=== PATIENT | male | born 1960 | race Caucasian/White ===

== ENCOUNTER 2024-05-21 15:49 | Emergency (ER) | payer OTHER, MEDICARE, SELFPAY ==
[2024-05-21 15:51] VITALS: BP 139/96
[2024-05-21] MEDS: VIBRAMYCIN 100 MG PO (17:54)
--- NOTE | 2024-05-21 23:18 | ED.SKININJ ---
HPI-Injury
General
Chief Complaint: Skin Problem
Source: patient
Exam Limitations: none
Time Seen by Provider: 05/21/24 17:16
Nursing documentation reviewed up to this point in time: agreed with
History of Present Illness-Injury
Is this injury a work related problem?: No
Is pt an associate of [facility] [address]?: No
Initial Injury comments:
Patient with red rash to left shoulder. Symptoms started this week. Today noted new rash to right thigh. Denies fever/chills, n/v/d. No pain or swelling to either site. No prior history of same. Brought self to ED for eval.
Past History
Past History
ED Past Medical History: GERD, Psychiatric (Anxiety) and Other (Spontaneous pneumothorax)
ED Past Surgical History: Orthopedic
Social History
Tobacco: Smoker
Alcohol: None
Drug: None
Personal: Single
Living: alone
Employment: Employed
Family History
Family History: Other (Father with melanoma)
Review of Systems
Review of Systems
Allergies reviewed?: Yes
All Other Systems: ROS reviewed and negative except as documented in HPI and ROS
Constitutional: Reports no symptoms
EENT: Reports no symptoms
Respiratory: Reports no symptoms
Cardiac: Reports no symptoms
ABD/GI: Reports no symptoms
Musculoskeletal: Reports no symptoms
Skin: Reports rash (Bulls eye rash to left shoulder and right thigh.)
Neurological: Reports no symptoms
Psychiatric: Reports no symptoms
Phy Exam
General Physical Exam
General Presentation: well appearing and no apparent distress
General age: appears stated age
General Skin: warm and dry
General Habitus: normal
General Mental: alert
Neurological Exam
Neurological Exam: alert, oriented x3, CN II-XII intact, no motor deficits, no sensory deficits, speech normal and normal gait
Musculoskeletal Exam
Musculoskeletal Exam: full ROM and neuro vasc intact
Skin Exam
Skin Exam: normal color, warm/dry and other (Bulls eye rash to left shoulder and right thigh concerning for Lymes erythema migrans presentation)
Psychiatric Exam
Psychiatric Exam: normal mood/affect
Course
Orders/Labs/Results
Orders:
Orders
05/21/24 17:28
Doxycycline [Vibramycin] 100 mg PO NOW STA
05/21/24 17:58
Lyme Progressive Urgent
Vital Signs
Initial and Last Documented VS:
Initial Vital Signs
Temp Pulse Resp BP Pulse Ox
97.5 F 96 16 139/96 97
05/21/24 15:51 05/21/24 15:51 05/21/24 15:51 05/21/24 15:51 05/21/24 15:51
Last Documented Vital Signs
Temp Pulse Resp BP Pulse Ox
97.5 F 96 16 139/96 97
05/21/24 15:51 05/21/24 15:51 05/21/24 15:51 05/21/24 15:51 05/21/24 15:51
*Critical Care Note
Total Time (30-74mins, 75-104mins- exclusive of procedures): Not Applicable
Update Note
Update Note:
Bulls eye rash to left shoulder and right thigh. Suspect Erythema Migrans. Lyme titer drawn, results pending. Placed on Doxycycline 100mg bid, He is discharged home and will follow closely with PCP
ED Attending Note
-
Portions of this chart may have been created with voice recognition software.� Occasional wrong word or��sound alike� substitutions may have occurred due to the inherent limitations of voice recognition software.
Discharge Plan
Departure
Patient Disposition: Home (Routine Discharge)
Date of Disposition: 05/21/24
Time of Disposition: 17:29
Patient with high blood pressure during this ER visit?: No
Condition: Good
Covid-19: Not Applicable
Discharge Problem:
Erythema migrans (Lyme disease)
Instructions: Skin Rash (DC)
Prescriptions:
New
doxycycline hyclate 100 mg capsule
100 mg PO BID Qty: 42 0RF
No Action
aspirin 325 MG tablet,delayed release (DR/EC)
325 mg PO DAILYPRN PRN (Reason: mild pain)
alprazolam 1 MG tablet
1 mg PO TID
ondansetron 4 mg Tablet,Disintegrating
4 mg PO TIDPRN PRN (Reason: nausea/vomiting) Qty: 10 0RF
famotidine [Pepcid] 40 mg tablet
40 mg PO DAILY Qty: 20 0RF
Activity Restrictions/Additional Instructions:
Follow up with your family doctor
Interventions
Interventions:
*General Assessment Last Done: 05/21/24 15:51
ED- Fall Risk Assessment Last Done: 05/21/24 18:40
*ED COVID-19 Vaccine History Last Done: 05/21/24 15:51
*Nursing Disposition Last Done: 05/21/24 18:40
Discharge Date and Time
Discharge Date/Time: 05/21/24 18:40
Print Language: INDIAN
[2024-05-23 15:09] LABS: Lyme Antibody Screen, EIA Negative (Negative)
== END 2024-05-21 18:40 | disposition home or self-care (01) ==
LOC: EMR 15:49
PROVIDERS: Nurse Practitioner; EMERGENCY PHYSICIAN Emergency Medicine; FAMILY PHYSICIAN Physician Assistant Medical
DX: A26.0 Cutaneous erysipeloid (principal); A69.20 Lyme disease, unspecified; F41.9 Anxiety disorder, unspecified; K21.9 Gastro-esophageal reflux disease without esophagitis; K22.70 Barrett's esophagus without dysplasia; F43.10 Post-traumatic stress disorder, unspecified; F17.210 Nicotine dependence, cigarettes, uncomplicated; Z87.01 Personal history of pneumonia (recurrent); Z88.8 Allergy status to other drugs, medicaments and biological substances
CPT/HCPCS: 99283; 86618

== ENCOUNTER → 2025-01-24 16:17 | Outpatient (REF) | payer OTHER, MEDICARE, SELFPAY ==
[2025-01-24 17:38] LABS: Blood Urea Nitrogen 12 mg/dl (9-20); Carbon Dioxide 24 mmol/L (22-30); Chloride 102 mmol/L (98-107); Glucose 86 mg/dl (70-99); Sodium 137 mmol/L (135-145); eGFR > 60.00
== END ==
LOC: REG 16:17
PROVIDERS: ATTENDING PHYSICIAN Nurse Practitioner Family
DX: R93.89 Abnormal findings on diagnostic imaging of other specified body structures (principal)
CPT/HCPCS: 36415; 80048

== ENCOUNTER → 2025-01-26 10:28 | Outpatient (REF) | payer MEDICARE, SELFPAY | LOC: HWRAD 10:28 | PROVIDERS: ATTENDING PHYSICIAN Internal Medicine Critical Care Medicine; FAMILY PHYSICIAN Family Medicine | DX: R91.8 Other nonspecific abnormal finding of lung field (principal) | CPT/HCPCS: 71250 ==

== ENCOUNTER → 2025-01-27 08:02 | Outpatient (REF) | payer MEDICARE, SELFPAY ==
[2025-01-27 09:22] LABS: Hemoglobin 12.6 g/dL (13.0-18.0); Mean Corp Hgb Conc. 34.1 g/dL (33.0-37.0); Mean Corpuscular Hgb 27.7 pg (27.0-31.0); Mean Corpuscular Volume 81.3 fL (80.0-94.0); Mean Platelet Volume 8.9 fL (7.4-10.4); Platelet Count 410 10^3/uL (130-400); Red Blood Cell Count 4.55 10^6/uL (4.70-6.10); Red Cell Dist. Width 14.2 % (11.5-14.5)
[2025-01-27 09:30] LABS: INR 0.98; PT 13.3 Sec (11.4-14.6)
[2025-01-27 09:31] LABS: APTT 37.5 Sec (23.4-35.0)
== END ==
LOC: SDSPAT 08:02
PROVIDERS: ATTENDING PHYSICIAN Internal Medicine Critical Care Medicine; FAMILY PHYSICIAN Family Medicine
DX: R10.9 Unspecified abdominal pain (principal)
CPT/HCPCS: 85027; 85610; 85730; 93005

== ENCOUNTER 2025-01-30 06:22 | Day surgery (SDC) | payer MEDICARE, SELFPAY ==
[2025-01-27 11:44] VITALS: BMI 24.0
[2025-01-30] VITALS (9 sets, daily range): BP systolic 104–145; BP diastolic 67–100; BMI 24.0
--- NOTE | 2025-01-30 16:07 | W.PN.UPDATE ---
Update Note
Progress Note Update
Following robotic bronchoscopy today, which showed a friable mass at the orifice of the right upper lobe anterior segmental bronchus, patient had some mild hemoptysis after he was extubated. He was in no acute distress. As a precaution, I will
give him nebulized TXA 500mg x 1 and continue to closely monitor while in the PACU.
If hemoptysis remains minimal, and saturations remain >88-90%, and he is not short of breath or have chest discomfort (worse than baseline that is), then he is okay to be discharged home. Of note, he was coughing up blood prior to today.
== END 2025-01-30 17:24 | disposition home or self-care (01) ==
LOC: SDS 06:22
PROVIDERS: ATTENDING PHYSICIAN Internal Medicine Critical Care Medicine
DX: C34.11 Malignant neoplasm of upper lobe, right bronchus or lung (principal); R93.89 Abnormal findings on diagnostic imaging of other specified body structures; R91.1 Solitary pulmonary nodule; R91.8 Other nonspecific abnormal finding of lung field
CPT/HCPCS: 31652; 31629; 31624; 31623; 31654; 88172; 88173; 88305; 71045; 76000; 81459; 87015; 87070; 87071; 87102; 87116; 87186; 87205; 88112; 88333; 88341; 88342; 94640; C1887

== ENCOUNTER → 2025-02-08 11:44 | Outpatient (REF) | payer MEDICARE, OTHER, SELFPAY ==
[2025-02-08 14:08] LABS: % Basophils 1.5 % (0-2); % Immature Granulocytes 0.5 % (0-0.5); % Monocytes 10.4 % (1.7-9.3); % Neutrophils 56.6 % (42.2-75.2); Absolute Basophils 0.1 10^3/uL (0-0.2); Absolute Eosinophils 0.1 10^3/uL (0-0.7); Absolute Lymphocytes 1.7 10^3/uL (1.2-3.4); Absolute Monocytes 0.6 10^3/uL (0.1-0.6); Absolute Neutrophils 3.3 10^3/uL (1.4-6.5); Hematocrit 35.3 % (39.0-52.0); Hemoglobin 11.7 g/dL (13.0-18.0); Mean Corp Hgb Conc. 33.1 g/dL (33.0-37.0); Mean Corpuscular Hgb 27.1 pg (27.0-31.0); Mean Corpuscular Volume 81.7 fL (80.0-94.0); Nucleated Red Blood Cells % 0 % (-); Platelet Count 404 10^3/uL (130-400); Red Blood Cell Count 4.32 10^6/uL (4.70-6.10); Red Cell Dist. Width 14.1 % (11.5-14.5); White Blood Cell Count 5.9 10^3/uL (4.8-10.8)
[2025-02-08 15:06] LABS: ALT (SGPT) 10 U/L (0-50); AST (SGOT) 16 U/L (17-59); Albumin 4.3 g/dl (3.5-5.0); Alkaline Phosphatase 100 U/L (38-126); Blood Urea Nitrogen 14 mg/dl (9-20); Calcium 9.9 mg/dl (8.4-10.2); Carbon Dioxide 21 mmol/L (22-30); Chloride 101 mmol/L (98-107); Glucose 88 mg/dl (70-99); Potassium 4.5 mmol/L (3.5-5.1); Sodium 135 mmol/L (135-145); Total Bilirubin 0.7 mg/dl (0.2-1.3); eGFR > 60.00
[2025-02-08 16:18] LABS: CEA 4.04 ng/ml
== END ==
LOC: MRI 3T 11:44
PROVIDERS: ATTENDING PHYSICIAN Internal Medicine Hematology & Oncology; FAMILY PHYSICIAN Nurse Practitioner Family
DX: C34.11 Malignant neoplasm of upper lobe, right bronchus or lung (principal)
CPT/HCPCS: 36415; 70553; 80053; 82378; 85025; A9575

== ENCOUNTER → 2025-03-03 10:55 | Outpatient (REF) | payer MEDICARE, OTHER, SELFPAY | LOC: HWRAD 10:55 | PROVIDERS: ATTENDING PHYSICIAN Nurse Practitioner Family | DX: R60.0 Localized edema (principal) | CPT/HCPCS: 93970 ==

== ENCOUNTER 2025-04-03 06:57 | Emergency (ER) | payer MEDICARE, OTHER, SELFPAY ==
[2025-04-03 07:04] VITALS: BP 100/76
[2025-04-03 07:13] VITALS: BP 106/76
[2025-04-03 07:16] VITALS: BMI 23.1
--- NOTE | 2025-04-03 07:25 | ED.GENMED ---
History of Present Illness
General
Chief Complaint: Generalized Pain
Source: patient
Exam Limitations: none
Time Seen by Provider: 04/03/25 07:01
History of Present Illness
History of Present Illness:
64-year-old male smoker with history of COPD and diagnosis of lung cancer presents with diffuse pain. He has been taking meloxicam with minimal relief. He is on famotidine as well for this. He has been in contact with oncology. He was starting a
discussion with palliative care but he has yet to seek palliative care. He initially had a wedge resection scheduled for April 19 of this month but it got canceled. He denies a fever. He notes joint aches and muscle pain. Patient expresses his
frustration with this process. He could not drive this morning because of his pain he called the ambulance. He does have an appointment for 11 AM today with the nurse coordinator and his oncology office.
Past History
Past History
ED Past Medical History: GERD, Psychiatric (Anxiety) and Other (Spontaneous pneumothorax)
ED Past Surgical History: Orthopedic
Social History
Tobacco: Smoker
Alcohol: None
Drug: None
Personal: Single
Living: alone
Employment: Employed
Family History
Family History: Other (Father with melanoma)
Phy Exam
Physical Exam
Physical Exam:
General: Well-appearing male no acute respiratory distress
HEENT: Normocephalic atraumatic
Heart: Regular rate and rhythm no murmurs
Lungs: Clear no wheeze
Abdomen is soft nontender nondistended
Extremities: No cyanosis or edema
Course
Orders/Labs/Results
Orders:
Orders
04/03/25 07:23
HYDROmorphone [Dilaudid] 0.5 mg IV NOW STA
04/03/25 07:33
CPK [Creatine Phosphokinase] Urgent
Complete Blood Count/With Diff Urgent
Comprehensive Metabolic Panel Urgent
04/03/25 09:48
Ondansetron Injectable [Zofran] 4 mg IV NOW STA
04/03/25 09:49
Ondansetron Injectable [Zofran] 4 mg .ROUTE .STK-MED ONE
04/03/25 10:12
Oxycodone [Roxicodone] 5 mg PO NOW STA
Abnormal Lab Results
04/03/25
07:33
RBC 3.70 L 10^6/uL
(4.70-6.10)
Hgb 9.2 L g/dL
(13.0-18.0)
Hct 28.0 L %
(39.0-52.0)
MCV 75.7 L fL
(80.0-94.0)
MCH 24.9 L pg
(27.0-31.0)
MCHC 32.9 L g/dL
(33.0-37.0)
Plt Count 453 H 10^3/uL
(130-400)
Monocytes % 10.3 H %
(1.7-9.3)
Glucose 101 H mg/dl
(70-99)
AST 13 L U/L
(17-59)
Creatine Kinase 35 L U/L
(55-170)
Total Protein 5.9 L g/dl
(6.3-8.2)
Albumin 3.2 L g/dl
(3.5-5.0)
04/03/25 07:33
04/03/25 07:33
Vital Signs
Initial and Last Documented VS:
Initial Vital Signs
Pulse Resp
92 21
04/03/25 07:01 04/03/25 07:01
Last Documented Vital Signs
Temp Pulse Resp BP Pulse Ox
97.8 F 89 18 106/76 99
04/03/25 07:13 04/03/25 07:13 04/03/25 07:13 04/03/25 07:13 04/03/25 07:13
MDM/Problems Addressed
Differential Diagnosis Includes:
patient with diffuse pain history of lung cancer. Meloxicam helping minimally. Will check basic labs and CPK given the diffuse pain. Give dose of Dilaudid.
*Critical Care Note
Total Time (30-74mins, 75-104mins- exclusive of procedures): Not Applicable
Update Note
Update Note:
Patient reevaluated multiple times feeling somewhat better after IV pain medicine. No indication for admission. will discharge.
ED Attending Note
-
Portions of this chart may have been created with voice recognition software.� Occasional wrong word or��sound alike� substitutions may have occurred due to the inherent limitations of voice recognition software.
Discharge Plan
Departure
Patient Disposition: Home (Routine Discharge)
Date of Disposition: 04/03/25
Time of Disposition: 10:47
Patient with high blood pressure during this ER visit?: No
Discharge Problem:
Pain
Instructions: Chronic Pain (DC)
Prescriptions:
New
oxycodone-acetaminophen [Percocet] 5-325 mg tablet
1 tab PO TID PRN (Reason: Pain) Qty: 10 0RF
No Action
aspirin 325 MG tablet,delayed release (DR/EC)
325 mg PO DAILYPRN PRN (Reason: mild pain)
alprazolam 1 MG tablet
1 mg PO TID
esomeprazole magnesium [Nexium] 20 mg Capsule,Delayed Release(Dr/Ec)
20 mg PO DAILY
Rx Instructions:
Takes 1-2 tabs daily
ibuprofen 200 mg Tablet
200 mg PO Q6H PRN (Reason: pain)
Referrals:
Zulma Armas CRNP [Family Provider] -
Activity Restrictions/Additional Instructions:
Please follow-up with your oncology team as planned.
Interventions
Interventions:
*Risk Screen - Suicide Last Done: 04/03/25 08:05
*General Assessment Last Done: 04/03/25 08:04
*ED- Fall Risk Assessment Last Done: 04/03/25 08:04
*ED COVID-19 Vaccine History Last Done: 04/03/25 08:04
Discharge Date and Time
Print Language: BAHRAINI
[2025-04-03] MEDS: DILAUDID 0.5 MG IV (07:30)
[2025-04-03 07:45] LABS: % Basophils 1.4 % (0-2); % Eosinophils 3.6 % (0-6); % Immature Granulocytes 0.2 % (0-0.5); % Monocytes 10.3 % (1.7-9.3); % Neutrophils 62.5 % (42.2-75.2); Absolute Basophils 0.1 10^3/uL (0-0.2); Absolute Eosinophils 0.2 10^3/uL (0-0.7); Absolute Lymphocytes 1.3 10^3/uL (1.2-3.4); Absolute Monocytes 0.6 10^3/uL (0.1-0.6); Absolute Neutrophils 3.7 10^3/uL (1.4-6.5); Hemoglobin 9.2 g/dL (13.0-18.0); Mean Corp Hgb Conc. 32.9 g/dL (33.0-37.0); Mean Corpuscular Hgb 24.9 pg (27.0-31.0); Mean Corpuscular Volume 75.7 fL (80.0-94.0); Mean Platelet Volume 8.9 fL (7.4-10.4); Nucleated Red Blood Cells % 0 % (-); Platelet Count 453 10^3/uL (130-400); Red Cell Dist. Width 14.1 % (11.5-14.5); White Blood Cell Count 5.9 10^3/uL (4.8-10.8)
[2025-04-03 07:55] LABS: ALT (SGPT) < 10 U/L (0-50); AST (SGOT) 13 U/L (17-59); Albumin 3.2 g/dl (3.5-5.0); Alkaline Phosphatase 76 U/L (38-126); Blood Urea Nitrogen 10 mg/dl (9-20); Calcium 9.1 mg/dl (8.4-10.2); Carbon Dioxide 24 mmol/L (22-30); Chloride 105 mmol/L (98-107); Creatine Phosphokinase 35 U/L (55-170); Estimated Creatinine Clearance 66 ml/min; Glucose 101 mg/dl (70-99); Potassium 4.4 mmol/L (3.5-5.1); Sodium 136 mmol/L (135-145); Total Bilirubin 0.4 mg/dl (0.2-1.3); Total Protein 5.9 g/dl (6.3-8.2); eGFR > 60.00
[2025-04-03 08:00] VITALS: BP 111/76
[2025-04-03 09:00] VITALS: BP 111/85
--- NOTE | 2025-04-03 09:19 | CM ---
ED CM met with pt bedside
Pt with new CA diagnosis
Palliative care brochure provided
He noted he has already met with them
Pt resides alone and will need help with navigating care and process
Pt has a blnded CM at [facility] and enrolled with [address]
He noted he has not heard from his [facility] CM regarding home based services
Outreach to [facility] [place]
Pt already followed closely by Javier Burk/[facility] to assist with care and navigation
No other CM needs at this time
[2025-04-03] MEDS: ZOFRAN 4 MG IV (09:50)
[2025-04-03 10:19] VITALS: BP 105/78
[2025-04-03] MEDS: ROXICODONE 5 MG PO (10:48)
[2025-04-03 11:00] VITALS: BP 121/80
== END 2025-04-03 11:05 | disposition home or self-care (01) ==
LOC: EMR 06:57
PROVIDERS: Physician Assistant; EMERGENCY PHYSICIAN Student in an Organized Health Care Education/Training Program; FAMILY PHYSICIAN Nurse Practitioner Family
DX: M79.10 Myalgia, unspecified site (principal); R52 Pain, unspecified; F17.200 Nicotine dependence, unspecified, uncomplicated; J44.9 Chronic obstructive pulmonary disease, unspecified
CPT/HCPCS: 99285; 96374; 96375; 80053; 82550; 85025

== ENCOUNTER → 2025-04-14 07:17 | Outpatient (REF) | payer MEDICARE, OTHER, SELFPAY ==
[2025-04-14 08:02] VITALS: BP 99/69; BP_SYST 80
[2025-04-14 08:13] VITALS: BMI 26.6
[2025-04-14] MEDS: ANCEF 10 IV (08:19)
[2025-04-14 09:16] VITALS: BP 114/80; BP_SYST 83
[2025-04-14 09:20] VITALS: BP 114/74; BP_SYST 90
[2025-04-14 09:25] VITALS: BP 108/76
[2025-04-14 09:30] VITALS: BP 130/67
[2025-04-14 09:46] VITALS: BP 107/77
== END ==
LOC: RADI 07:17
PROVIDERS: ATTENDING PHYSICIAN Internal Medicine Hematology & Oncology
DX: C34.11 Malignant neoplasm of upper lobe, right bronchus or lung (principal)
CPT/HCPCS: 36561; 76937; 77001; 99152; 99153; C1788

== ENCOUNTER → 2025-04-15 11:00 | Outpatient (REF) | payer MEDICARE, OTHER, SELFPAY ==
[2025-04-15 11:47] LABS: % Basophils 1.2 % (0-2); % Immature Granulocytes 0.2 % (0-0.5); % Lymphocytes 25.2 % (20.5-51.1); % Monocytes 10.5 % (1.7-9.3); % Neutrophils 60.9 % (42.2-75.2); Absolute Basophils 0.1 10^3/uL (0-0.2); Absolute Eosinophils 0.1 10^3/uL (0-0.7); Absolute Lymphocytes 1.3 10^3/uL (1.2-3.4); Absolute Monocytes 0.5 10^3/uL (0.1-0.6); Hematocrit 28.5 % (39.0-52.0); Hemoglobin 9.2 g/dL (13.0-18.0); Mean Corp Hgb Conc. 32.3 g/dL (33.0-37.0); Mean Corpuscular Hgb 24.2 pg (27.0-31.0); Mean Platelet Volume 8.5 fL (7.4-10.4); Nucleated Red Blood Cells % 0 % (-); Platelet Count 480 10^3/uL (130-400); Red Cell Dist. Width 14.7 % (11.5-14.5)
[2025-04-15 12:42] LABS: ALT (SGPT) < 10 U/L (0-50); AST (SGOT) 16 U/L (17-59); Albumin 3.6 g/dl (3.5-5.0); Alkaline Phosphatase 83 U/L (38-126); Blood Urea Nitrogen 16 mg/dl (9-20); Calcium 9.1 mg/dl (8.4-10.2); Carbon Dioxide 23 mmol/L (22-30); Chloride 105 mmol/L (98-107); Glucose 90 mg/dl (70-99); Potassium 5.2 mmol/L (3.5-5.1); Sodium 135 mmol/L (135-145); Total Bilirubin 0.2 mg/dl (0.2-1.3); Total Protein 6.4 g/dl (6.3-8.2); eGFR > 60.00
[2025-04-15 12:53] LABS: Free T4 1.15 ng/dl (0.78-2.19)
[2025-04-15 13:07] LABS: TSH 4.83 uIU/ml (0.47-4.68)
[2025-04-17 15:36] LABS: Total T3 (Sendout) 124 ng/dL (80-200)
== END ==
LOC: REG 11:00
PROVIDERS: ATTENDING PHYSICIAN Internal Medicine Hematology & Oncology
DX: C34.11 Malignant neoplasm of upper lobe, right bronchus or lung (principal); Z79.899 Other long term (current) drug therapy
CPT/HCPCS: 36415; 80053; 84439; 84443; 84480; 85025

== ENCOUNTER 2025-04-21 23:00 | Inpatient (IN) | payer MEDICARE, OTHER, SELFPAY ==
[2025-04-21 17:17] VITALS: BP 137/72
--- NOTE | 2025-04-21 17:37 | EDRN ---
Cierra Shirley PA in room w/pt at this time.
--- NOTE | 2025-04-21 17:49 | ED.GENMED ---
History of Present Illness
General
Chief Complaint: Bowel Problem
Source: patient, records and family
Time Seen by Provider: 04/21/25 17:29
History of Present Illness
History of Present Illness:
64-year-old male with past medical history of lung cancer, COPD, previous pneumothorax presenting to the emergency department for evaluation of gradually worsening abdominal pain throughout the day today accompanied with passage of 2 hard stools,
nausea and generally feeling unwell. Patient states he has felt so unwell he was unable to take any of his medications at home including his usual pain medicines of Percocet and meloxicam. Patient denies any fevers, chills, rigors, urinary
symptoms, chest pain or shortness of breath. He does note he was recently seen on Thursday at his [facility] where he had his last round of chemotherapy. Based off of record review it appears patient was in talks about palliative
care however still has not had his appointment for this.
Past History
Past History
ED Past Medical History: Cancer, GERD, Psychiatric (Anxiety) and Other (Spontaneous pneumothorax)
ED Past Surgical History: Orthopedic
Social History
Tobacco: Smoker
Alcohol: None
Drug: None
Personal: Single
Living: alone
Employment: Employed
Family History
Family History: Other (Father with melanoma)
Review of Systems
Review of Systems
All Other Systems: ROS reviewed and negative except as documented in HPI and ROS
Phy Exam
Physical Exam
Physical Exam:
GENERAL: Alert , appears very uncomfortable, moaning, hard time sitting still
EYE: clear conjunctiva b/l
HEAD: NCAT
ENT: mmm.
CARDIAC: Regular rate and rhythm .
LUNGS: Clear breath sounds bilaterally, no acute respiratory distress, no wheezes/rales/rhonchi
ABDOMEN: Soft, diffusely tender but nondistended, no r/g, no cvat, normoactive bowel sounds
NEUROLOGICAL: Alert and oriented
SKIN: Warm and dry, skin intact.
MUSCULOSKELETAL: well perfused.
PSYCH: Normal and appropriate interaction.
Scores
Heart Failure Risk
Heart Failure Risk Score: Not Applicable
Heart Score for Chest Pain Patients
STEMI patient?: Not applicable
Withdrawal Assessment of Alcohol
Withdrawal Assessment Completed?: Not applicable
Course
Orders/Labs/Results
Orders:
Orders
04/21/25 17:45
0.9% Sodium Chloride 1000 ml [Nss] 1,000 ml IV BOLUS
HYDROmorphone [Dilaudid] 1 mg IV NOW STA
Ondansetron Injectable [Zofran] 4 mg IV NOW STA
CR Obstruct Series W/pa Chest Urgent
Comment:
Reason For Exam: cancer hx, worsening abd pain
04/21/25 18:13
Complete Blood Count/With Diff Urgent
Comprehensive Metabolic Panel Urgent
Lipase Urgent
04/21/25 18:49
CT Abd/pelvis W Iv Cont Urgent
Comment:
Reason For Exam: generalized abd pain, vomiting, lung ca hx
04/21/25 19:16
Lactic Acid Q4H
Comment: CANCEL 2nd LACTIC ACID IF 1st LACTIC ACID IS LESS THAN 2
Blood Culture Q30M
YUNG Source: Blood/Venous
Specimen Description:
04/21/25 19:23
Blood Culture Q30M
YUNG Source: Blood/Venous
Specimen Description:
04/21/25 19:41
Ondansetron Injectable [Zofran] 4 mg .ROUTE .STK-MED ONE
04/21/25 19:42
HYDROmorphone [Dilaudid] 0.5 mg .ROUTE .STK-MED ONE
Ondansetron Injectable [Zofran] 4 mg IV NOW STA
04/21/25 19:43
HYDROmorphone [Dilaudid] 0.5 mg IV NOW STA
04/21/25 22:00
Flush (0.9% Sodium Chloride) [Flush (Nss)] See Dose Instructions IV PER PROTOCOL
04/21/25 22:45
Promethazine [Phenergan] 12.5 mg 0.9% Sodium Chloride 50 ml [Nss] 50 ml IV NOW
Promethazine [Phenergan] 12.5 mg 0.9% Sodium Chloride 50 ml [Nss] 50 ml IV Q4HPRN
Abnormal Lab Results
04/21/25
18:13
WBC 23.7 H 10^3/uL
(4.8-10.8)
RBC 4.03 L 10^6/uL
(4.70-6.10)
Hgb 9.8 L g/dL
(13.0-18.0)
Hct 30.1 L %
(39.0-52.0)
MCV 74.7 L fL
(80.0-94.0)
MCH 24.3 L pg
(27.0-31.0)
MCHC 32.6 L g/dL
(33.0-37.0)
RDW 15.1 H %
(11.5-14.5)
Plt Count 429 H 10^3/uL
(130-400)
Abs Immat Gran (auto) 1.4 H 10^3/uL
(0-0.05)
Absolute Neuts (auto) 20.8 H 10^3/uL
(1.4-6.5)
Absolute Monos (auto) 0.0 L 10^3/uL
(0.1-0.6)
Immature Gran % 5.7 H %
(0-0.5)
Neutrophils % 87.7 H %
(42.2-75.2)
Lymphocytes % 6.2 L %
(20.5-51.1)
Monocytes % 0.1 L %
(1.7-9.3)
Chloride 108 H mmol/L
(98-107)
BUN 25 H mg/dl
(9-20)
04/21/25 18:13
04/21/25 18:13
Vital Signs
Initial and Last Documented VS:
Initial Vital Signs
Temp Pulse Resp BP Pulse Ox
98.1 F 87 20 137/72 98
04/21/25 17:17 04/21/25 17:17 04/21/25 17:17 04/21/25 17:17 04/21/25 17:17
Last Documented Vital Signs
Temp Pulse Resp BP Pulse Ox
98.1 F 82 16 131/73 99
04/21/25 17:17 04/21/25 20:00 04/21/25 20:00 04/21/25 20:00 04/21/25 20:00
MDM/Problems Addressed
Differential Diagnosis Includes:
Bowel obstruction, pain secondary to known malignancy/cancerous process, dehydration, electrolyte derangement, surgical abdomen
MDM/Problems Addressed:
64-year-old male presenting to the ER for evaluation of gradually worsening abdominal pain throughout the day today, history of similar pain, usually able to manage symptoms with Percocet at home as well as meloxicam but he was unable to even
tolerate this today. Will obtain x-ray to rule out obstruction. Pain control with Dilaudid as patient notes he has had relief with this in the past. IV fluids and Zofran ordered as well. Will check labs. Disposition pending.
Chronic conditions affecting care: Cancer
Acute Exacerbation and/or Progression of Chronic Illness: Cancer
*Radiology
Radiology exam reviewed: radiology read reviewed
*Pulse Oximetry
Patient hypoxic: no
*Critical Care Note
Total Time (30-74mins, 75-104mins- exclusive of procedures): Not Applicable
Data Reviewed
Review of Other/Old Records Reveals: Labs and Records
Comment
Comment:
Patient with initial improvement of symptoms however he did start vomiting again so an additional 4 mg of Zofran and 1/2 mg of Dilaudid ordered for symptomatic control. Patient has an elevated white blood cell count of near 24,000 which is
significantly elevated from the last time he was here. X-ray of the abdomen shows possible air-fluid levels within the right mid to lower abdomen. Given his leukocytosis and presenting symptoms will obtain CT scan to further evaluate. Anticipate
admission.
Patient Management
Discussion with other providers: Hospitalist
Escalation/DeEscalation of care consider admission/obs:
Patient CT scan without any focal findings or surgical complications. Given his persistent pain, difficulty tolerating p.o. and lab abnormalities will admit for continued supportive care and pain control. Hospitalist team aware and accepts for
continued evaluation and treatment.
ED Attending Note
-
Portions of this chart may have been created with voice recognition software.� Occasional wrong word or��sound alike� substitutions may have occurred due to the inherent limitations of voice recognition software.
Discharge Plan
Departure
Patient Disposition: Admit
Date of Disposition: 04/21/25
Time of Disposition: 21:28
Presentation/result/management discussed w/ accepting MD/DO: Hospitalist
Discharge Problem:
Abdominal pain, Nausea and vomiting
Prescriptions:
No Action
alprazolam 1 MG tablet
1 mg PO TID
ibuprofen 200 mg Tablet
200 mg PO Q6H PRN (Reason: pain)
oxycodone-acetaminophen [Percocet] 5-325 mg tablet
1 tab PO TID PRN (Reason: Pain) Qty: 10 0RF
famotidine 10 mg Tablet
10 mg PO DAILY
meloxicam 15 mg Tablet
15 mg PO DAILY
gabapentin 300 mg Capsule
300 mg PO DAILY
Referrals:
UNKNOWN - PT DOES,NOT KNOW [Unknown Provider] -
Interventions
Interventions:
*General Assessment Last Done: 04/21/25 18:19
*ED- Fall Risk Assessment Last Done: 04/21/25 18:19
*ED COVID-19 Vaccine History Last Done: 04/21/25 18:19
OZ-Xrpywz-Vjtjnryccd Assessment Last Done: 04/21/25 18:21
Discharge Date and Time
Print Language: KHMER
[2025-04-21] MEDS: ZOFRAN 4 MG IV ×2 (18:18→19:43)
[2025-04-21] MEDS: NSS 1000 IV (18:18)
[2025-04-21] MEDS: DILAUDID 1 MG IV (18:19)
[2025-04-21 18:30] VITALS: BP 121/71
[2025-04-21 18:32] LABS: ALT (SGPT) 16 U/L (0-50); AST (SGOT) 18 U/L (17-59); Albumin 3.6 g/dl (3.5-5.0); Alkaline Phosphatase 101 U/L (38-126); Blood Urea Nitrogen 25 mg/dl (9-20); Calcium 8.9 mg/dl (8.4-10.2); Carbon Dioxide 23 mmol/L (22-30); Chloride 108 mmol/L (98-107); Glucose 93 mg/dl (70-99); Sodium 137 mmol/L (135-145); Total Bilirubin 0.7 mg/dl (0.2-1.3); Total Protein 6.3 g/dl (6.3-8.2); eGFR > 60.00
[2025-04-21 18:34] LABS: Hematocrit 30.1 % (39.0-52.0); Hemoglobin 9.8 g/dL (13.0-18.0); Lipase 117 U/L (23-300); Mean Corp Hgb Conc. 32.6 g/dL (33.0-37.0); Mean Corpuscular Hgb 24.3 pg (27.0-31.0); Mean Corpuscular Volume 74.7 fL (80.0-94.0); Mean Platelet Volume 8.5 fL (7.4-10.4); Platelet Count 429 10^3/uL (130-400); Red Blood Cell Count 4.03 10^6/uL (4.70-6.10); Red Cell Dist. Width 15.1 % (11.5-14.5); White Blood Cell Count 23.7 10^3/uL (4.8-10.8)
[2025-04-21 18:49] VITALS: BMI 26.5
[2025-04-21 18:50] LABS: % Basophils 0.1 % (0-2); % Eosinophils 0.2 % (0-6); % Immature Granulocytes 5.7 % (0-0.5); % Lymphocytes 6.2 % (20.5-51.1); % Monocytes 0.1 % (1.7-9.3); % Neutrophils 87.7 % (42.2-75.2); Absolute Eosinophils 0.1 10^3/uL (0-0.7); Absolute Immature Granulocytes 1.4 10^3/uL (0-0.05); Absolute Lymphocytes 1.5 10^3/uL (1.2-3.4); Absolute Neutrophils 20.8 10^3/uL (1.4-6.5); Nucleated Red Blood Cells % 0 % (-)
[2025-04-21 19:34] LABS: Lactic Acid 1.5 mmol/L (0.7-2.0)
[2025-04-21] MEDS: DILAUDID 0.5 MG IV (19:43)
[2025-04-21 20:00] VITALS: BP 131/73
--- NOTE | 2025-04-21 21:59 | HPS.HSE ---
Family Physician
-
Family Physician: GONZALO Granados
Chief Complaint
-
Generalized abdominal pain nausea, dry heaves post first chemotherapy
History of Present Illness
64-year-old male complains of worsening abdominal pain throughout the day with nausea, 2 hard stools and feeling unwell. He reports feeling so unwell he was unable to take his pain medication Percocet and meloxicam that he was prescribed
approximately 2 to 3 weeks ago for bilateral leg pain/swelling. He denies fever, chills, headache, chest pain, palpitations, shortness of breath, vomiting, diarrhea, urinary symptoms. He has history of adenocarcinoma right upper lobe/midlung, left
lower lobe diagnosed February 21 via bronchoscopy. He started his first round of chemotherapy this past week on 04/17/2025 followed by 2 additional days of chemo and then colonizing factor injection yesterday 04/20/2025. He follows with
[facility] is unsure of physician's name. He states that he lives alone has no one to help him around the house or get things together including food. 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
tok tok tok program but has not heard anything. He is actively smoking 1 pack a day of cigarettes. He states his abdominal pain is generalized with nausea and dry heaves and all he wants to do is sleep and have nausea and pain control. Other past
medical history includes adenocarcinoma right upper lung/mid lung/left lower lobe Dx February 21, 2025 via bronchoscopy on first round of chemo started 04/17/2025 COPD, active smoker, previous spontaneous pneumothorax, GERD, anxiety.
Medical History
Past Medical History
Past Medical History: Reports Other
Additional Past Medical History:
adenocarcinoma right upper lung/mid lung/left lower lobe Dx February 21, 2025 via bronchoscopy on first round of chemo started 04/17/2025
COPD
active smoker
previous spontaneous pneumothorax
GERD
anxiety.
Past Surgical History: Reports None and Other
Social History
Tobacco: Smoker (1 pack a day x 50 years)
Alcohol: None
Drug: None
Personal: Single
Living: Alone
Employment: Disabled
Family History
Family History: Other (Father obstructive gallstone history of pacemaker, A-fib, CHF age 88, mother lung cancer unsure type)
Allergies / Home Medications
Allergies reflects when Allergies were last updated in [employer].
Home Medications with original date entered in [employer]
Allergy/Medication List:
Allergies
Allergy/AdvReac Type Severity Reaction Status Date / Time
diclofenac Allergy Nausea / Verified 04/21/25 17:16
Vomiting
antiinflammatories AdvReac Nausea / Uncoded 04/21/25 17:16
Vomiting
Home Medications
alprazolam 1 mg tablet 1 mg PO TID anxiety 06/24/21
ibuprofen 200 mg tablet 200 mg PO Q6H PRN pain 03/16/25
oxycodone-acetaminophen 5 mg-325 mg tablet (Percocet) 1 tab PO TID PRN Pain #10 tabs 04/03/25
famotidine 10 mg tablet 10 mg PO DAILY 04/14/25
gabapentin 300 mg capsule 300 mg PO DAILY 04/14/25
meloxicam 15 mg tablet 15 mg PO DAILY 04/14/25
Review of Systems
-
History Source: Patient
A 12 point ROS was completed and negative except as noted: Yes
Constitutional: Denies Fever or Chills
EENT: Denies Sore Throat or Runny Nose
Respiratory: Denies Cough or Trouble Breathing
Abdomen/GI: Reports Abdominal Pain (Generalized), Nausea, Vomiting (Dry heaves) and Constipated; Denies Diarrhea
: Denies Dysuria, Frequency, Flank Pain, Incontinence, Difficulty Voiding or Urgency
Musculoskeletal: Denies Joint Pain or Edema
Skin: Denies Itching or Rash
Neurological: Reports Weakness (Generalized); Denies Dizzy or Headache
Endocrine: Reports No Symptoms
Hematologic/Lymphatic: Reports No Symptoms
Psych: Reports Other (Agitated)
Physical Exam
Vital Signs
Vital Signs
Temp Pulse Resp BP Pulse Ox
98.1 F 82 16 131/73 99
04/21/25 17:17 04/21/25 20:00 04/21/25 20:00 04/21/25 20:00 04/21/25 20:00
Physical Exam
General: Conversant (But agitated) and Pain; No Fever or Chills
HEENT: NormoCephalic, Anicteric and Other (Dry oral mucosa); No Thrush
Respiratory: Clear; No Wheezes, Rales or Rhonchi
Cardiac: S1/S2 and Regular Rhythm; No Murmur, Rub, Gallop or Peripheral Edema
Breast: Deferred by me
GI: Soft, Normal Bowel Sounds and Tender (Generalized)
Genito-urinary: Deferred by me
Musculoskeletal: Clubbing (All fingernails), No Cyanosis and No Edema
Skin: Warm and Dry; No Rash or Jaundice
Neuro: AO x 3, No Motor Deficits, Nonfocal/grossly intact, Cranial Nerves Intact and No Sensory Deficits; No Slurred Speech, Facial Droop, Tremors or Sedated
Psych: Agitated
Laboratory Results
-
04/21/25 18:13
04/21/25 18:13
Laboratory Results
Lactic Acid Cancelled 04/21/25 23:00
Total Bilirubin 0.7 mg/dl (0.2-1.3) 04/21/25 18:13
AST 18 U/L (17-59) 04/21/25 18:13
ALT 16 U/L (0-50) 04/21/25 18:13
Alkaline Phosphatase 101 U/L (38-126) 04/21/25 18:13
Lipase 117 U/L (23-300) 04/21/25 18:13
Impression/Plan
-
Impression/plan:
Admit to MedSurg
#Intractable abdominal pain/nausea/vomiting likely secondary to initial chemotherapy for adenocarcinoma
#Received colonizing factor injection yesterday 04/20/2025 causing leukocytosis
WBC 23.7 with left shift, HR 82, 98.1, 131/73
- No relief with IV Zofran
- Will give IV Phenergan now on as needed
- IV Dilaudid for mild, moderate, severe pain
- IV NSS
- Follow CBC, CMP
-Consult general surgery Dr. Herrera aware
- Consult PT/OT/case management
Obstruction series:
1. Focal opacity in the right midlung compatible with known lung cancer
2. Subtle spiculated density in the left lung apex which demonstrated FDG uptake on previous PET scan suspicious for a second focus of lung cancer
3. No evidence for bowel obstruction or free intraperitoneal air
CT abdomen pelvis with IV contrast:
1. Changes of emphysema within the visualized lungs
2. Evidence for gallbladder wall thickening which appears stable from CT examination of November 28, 2023. This finding is nonspecific.
Given persistence, this is unlikely to represent acute cholecystitis, but please correlate clinically.
3. The cecum is mobile and has flipped into the anterior abdomen, a new finding from previous examination.
No evidence for bowel obstruction or bowel wall thickening. Question whether this mobile cecum could result in abdominal pain.
4. No findings of stercoral colitis.
5 .Mild diffuse subcutaneous edema.
#Adenocarcinoma right upper lobe mass with mets to left lung apex via bronchoscopy 02/21/2025
First chemotherapy 04/17 - 04/20/2025
Did receive growth colonizing factor on 04/20/2025
-Follows with [facility]
#Acute on chronic anemia secondary to chemotherapy
Hgb 9.8 appears near baseline for patient
# COPD-no acute exacerbation
# Active smoker
#previous spontaneous pneumothorax
Nicotine patch
-Cessation advised
#GERD
- IV Pepcid 20 mg twice daily
Anxiety on chronic benzos
Continue alprazolam 1 mg p.o. 3 times daily
DVT prophylaxis
Subcu heparin
Full code
--- NOTE | 2025-04-21 22:00 | W.PN.UPDATE ---
Update Note
Progress Note Update
I could not get any information from the patient as
Information gathered by chart review and speaking with the ER staff.
This note serves as an addendum to the H&P by soccer referee AUDREY Balbina BROWN
HPI
64M Current smoker , HX CA lung , COPD, previous spontaneus PTX, PRN percocet depedent chr pain syndrome, chr Xanax depedent Anxiety seen at ER :
- for evaluation of gradually worsening abdominal pain throughout the day today
- report passage of 2 hard stools, nausea and generally feeling unwell.
- so unwell he was unable to take any PO meds including usual pain medicines of Percocet and meloxicam.
- denies any fevers, chills, rigors, urinary symptoms, chest pain or shortness of breath.
- recently seen on Thursday at his [facility] where he had his last round of chemotherapy.
- Based off of record review it appears patient was in talks about palliative care
ER Tx:
NS 1000 cc
IV Dilaudid 1mg + 0.5 mg + 0.5mg
IV Ondansetron Injectable 4 mg + 4 mg + 4mg
Vital Signs
Temp Pulse Resp BP Pulse Ox
98.1 F 82 16 131/73 99
04/21/25 17:17 04/21/25 20:00 04/21/25 20:00 04/21/25 20:00 04/21/25 20:00
PE
Gen: restless due to distress with abdomina pain
HEENT: anicteric
Neck: supple
Lungs: CTA
Cor: RR S1 S2
Abdomen: diffusely tender but nondistended,
CAR TRACER: AAO3 NFND
MS: no edema
Psych: Normal and appropriate interaction.
Laboratory Tests
04/15/25 04/21/25 04/21/25
11:14 18:13 19:16
WBC 5.0 23.7 H
Hgb 9.2 L 9.8 L
Plt Count 480 H 429 H
Abs Immat Gran (auto) 1.4 H
Absolute Neuts (auto) 20.8 H
Immature Gran % 5.7 H
Chloride 108 H
BUN 25 H
Creatinine 1.0
eGFR > 60.00
Lactic Acid 1.5
AST 18
ALT 16
Alkaline Phosphatase 101
CR Obstruct Series W/pa Chest
- Focal opacity in the right midlung, compatible with known lung cancer.
- Subtle spiculated density in the left lung apex, which demonstrated FDG uptake on previous PET/CT scan, suspicious for a second focus of lung cancer.
- No radiographic evidence for bowel obstruction or free intraperitoneal air.
CT AP W Iv Cont
- Evidence for gallbladder wall thickening which appears stable from CT examination of November 28, 2023. This finding is nonspecific. Given persistence, this is unlikely to represent acute cholecystitis, but please correlate clinically.
- The cecum is mobile and has flipped into the anterior abdomen, a new finding from previous examination.
No evidence for bowel obstruction or bowel wall thickening. Question whether this mobile cecum could result in abdominal pain.
- No findings of stercoral colitis.
- Mild diffuse subcutaneous edema.
Last hospitalist admission: 06/24/2021 - 06/24/2021
DISCHARGE DIAGNOSIS:
1. Biliary colic.
2. Anxiety.
ASSESSMENT & PLAN
Intractable abdominal pain and nausea of uncertain etiology
- Mobile cecum without LBWO ? culprit of current pain
- No CT evidence of stercoral colitis
- NOS persistent GBWT unlikely acute cholecystitis
- Nl LFTS and Nl LA
- Clear and ADAT, IV NS
- PRN IV Dilaudid and PRN anti emetics
- GS consult
Xanax dependent Anxiety
- switch to IV Ativan PRN in place of PO Xanax while intolerance to PO meds
Leucocytosis s/p first shot of Neulesta vs other GCSF
First round of chemo on Thursday04/18/25 at [facility]
HX Lung CA
- Trend Cr
DVT Px: LMWH
Full code
IP MS
[2025-04-21 22:56] VITALS: BP 129/78
[2025-04-21] MEDS: PHENERGAN 50.5 MG IV (23:01)
[2025-04-21] MEDS: NSS (PRESERVATIVE FREE) 8 ML IV (23:08)
[2025-04-21] MEDS: PEPCID 20 MG IV (23:08)
[2025-04-22 00:05] VITALS: BP 125/71; BMI 23.5
--- NOTE | 2025-04-22 00:53 | PTCARENOTE ---
Patient admitted to unit. Patient moaning on arrival but not answering RN if he was in pain. Patient was able to ambulate from stretcher to room but appeared unsteady. Bed alarm in use. Patient was dry heaving often. Patient became agitated during
admission questions and eventually stopped answering RN. Some questions were marked 'unable to answer/assess' due to patient's refusal. Patient unable to rate abdominal pain, unable to describe pain; however, patient seems visibly uncomfortable and
continues to moan. Will review PRN medications available.
[2025-04-22] MEDS: DILAUDID 0.5 MG IV ×2 (01:07→09:53)
[2025-04-22] MEDS: NSS 1000 IV (01:07)
[2025-04-22] MEDS: ZOFRAN 4 MG IV ×2 (01:46→19:16)
[2025-04-22] MEDS: PHENERGAN 50.5 MG IV (04:41)
[2025-04-22 06:00] VITALS: BMI 23.5
[2025-04-22 06:27] LABS: Hematocrit 28.3 % (39.0-52.0); Hemoglobin 9.2 g/dL (13.0-18.0); Mean Corp Hgb Conc. 32.5 g/dL (33.0-37.0); Mean Corpuscular Hgb 24.6 pg (27.0-31.0); Mean Corpuscular Volume 75.7 fL (80.0-94.0); Platelet Count 366 10^3/uL (130-400); Red Blood Cell Count 3.74 10^6/uL (4.70-6.10); Red Cell Dist. Width 15.4 % (11.5-14.5); White Blood Cell Count 17.6 10^3/uL (4.8-10.8)
[2025-04-22 06:42] LABS: ALT (SGPT) 13 U/L (0-50); AST (SGOT) 15 U/L (17-59); Albumin 3.2 g/dl (3.5-5.0); Alkaline Phosphatase 92 U/L (38-126); Blood Urea Nitrogen 19 mg/dl (9-20); Calcium 8.8 mg/dl (8.4-10.2); Carbon Dioxide 27 mmol/L (22-30); Chloride 105 mmol/L (98-107); Estimated Creatinine Clearance 80 ml/min; Glucose 111 mg/dl (70-99); Potassium 4.2 mmol/L (3.5-5.1); Sodium 135 mmol/L (135-145); Total Bilirubin 0.6 mg/dl (0.2-1.3); Total Protein 5.7 g/dl (6.3-8.2); eGFR > 60.00
[2025-04-22 07:30] VITALS: BP 133/83
[2025-04-22 07:46] LABS: % Basophils 0.1 % (0-2); % Eosinophils 0.3 % (0-6); % Immature Granulocytes 6.4 % (0-0.5); % Lymphocytes 4.3 % (20.5-51.1); % Monocytes 0.3 % (1.7-9.3); % Neutrophils 88.6 % (42.2-75.2); Absolute Eosinophils 0.1 10^3/uL (0-0.7); Absolute Immature Granulocytes 1.1 10^3/uL (0-0.05); Absolute Lymphocytes 0.8 10^3/uL (1.2-3.4); Absolute Monocytes 0.1 10^3/uL (0.1-0.6); Absolute Neutrophils 15.5 10^3/uL (1.4-6.5); Nucleated Red Blood Cells % 0 % (-)
[2025-04-22] MEDS: HEPARIN 5000 UNITS SC ×2 (10:11→20:02)
[2025-04-22] MEDS: NEURONTIN 300 MG PO (10:12)
[2025-04-22] MEDS: NICODERM TRANSDERMAL 21 MG TRANSDERM (10:12)
[2025-04-22] MEDS: FLUSH (NSS) 1 FLUSH IV (10:13)
[2025-04-22] MEDS: PEPCID 20 MG IV ×2 (10:13→20:03)
--- NOTE | 2025-04-22 12:54 | W.PN.HOSP.TC ---
Today's Communication/Plan
-
ADAT as per surgery
Symptomatic control
Assessment / Plan
Assessment / Plan
Physical Exam
General: Conversant, NAD, No Fever or Chills
HEENT: NormoCephalic, Anicteric; No Thrush
Respiratory: Clear; No Wheezes, Rales or Rhonchi
Cardiac: S1/S2 and Regular Rhythm; No Murmur, Rub, Gallop or Peripheral Edema
Breast: Deferred by me
GI: Soft, Normal Bowel Sounds and Tender (Generalized)
Genito-urinary: Deferred by me
Musculoskeletal: Clubbing (All fingernails), No Cyanosis and No Edema
Skin: Warm and Dry; No Rash or Jaundice
Neuro: AO x 3, No Motor Deficits, Nonfocal/grossly intact, Cranial Nerves Intact and No Sensory Deficits; No Slurred Speech, Facial Droop, Tremors or Sedated
Psych: Agitated
#N/V
# chemotherapy for adenocarcinoma
#Received colonizing factor injection yesterday 04/20/2025 causing leukocytosis
WBC 23.7 with left shift, HR 82, 98.1, 131/73
- No relief with IV Zofran
- Will give IV Phenergan now on as needed
- IV Dilaudid for mild, moderate, severe pain
- IV NSS
- Follow CBC, CMP
-Consult general surgery Dr. Herrera aware
- Consult PT/OT/case management
-NPO for now, adv as per surgery
#Constipation
#The cecum is mobile and has flipped into the anterior abdomen, a new finding from previous examination.
-CRS consulted
-NPO for now, ADAT as per surgery
#Adenocarcinoma right upper lobe mass with mets to left lung apex via bronchoscopy 02/21/2025
First chemotherapy 04/17 - 04/20/2025
Did receive growth colonizing factor on 04/20/2025
-Follows with [facility]
#Acute on chronic anemia secondary to chemotherapy
Hgb 9.8 appears near baseline for patient
# COPD-no acute exacerbation
# Active smoker
#previous spontaneous pneumothorax
Nicotine patch
-Cessation advised
#GERD
- IV Pepcid 20 mg twice daily
Anxiety on chronic benzos
Continue alprazolam 1 mg p.o. 3 times daily
DVT prophylaxis
Subcu heparin
Full code
Anticipated Discharge: Within 24 hours
Subjective/Interval History
-
Date of Service: April 22, 2025
Nausea improved, now she is complaining of pain, chronic
Objective Data
-
Labs:
Laboratory Results
04/22/25
05:56
WBC 17.6 H
Hgb 9.2 L
Hct 28.3 L
Plt Count 366
Sodium 135
Potassium 4.2
Chloride 105
Carbon Dioxide 27
BUN 19
Creatinine 0.8
Glucose 111 H
Calcium 8.8
Total Bilirubin 0.6
AST 15 L
ALT 13
Alkaline Phosphatase 92
Vital Signs:
Vital Signs
Temp Pulse Resp BP Pulse Ox
98.5 F 85 22 133/83 100
04/22/25 07:30 04/22/25 07:30 04/22/25 07:30 04/22/25 07:30 04/22/25 07:30
I&O
04/21/25 04/22/25 04/23/25
06:59 06:59 06:59
Intake Total 690 / 690
Output Total 800 / 800
Balance -110 / -110
Review of Systems
-
History Source: Patient
All other systems: Not reviewed unless documented
Data Reviewed
-
Diagnostic Radiology: Report Reviewed by me
CT Scan: Report Reviewed by me
Labs: Labs Reviewed by me
--- NOTE | 2025-04-22 13:21 | CON.GS ---
Consultation
-
Date/Time Consultation Requested: 04/22/25 1839
Date/Time Consultation Performed: 04/22/25 1245
Requesting Provider: Cain
Performing Provider: Alicia Herrera
Medical History
-
Chief Complaint: n/v
History of Present Illness:
Mr Mcconnell is a 64 yo male with a h/o adenocarcinoma of the lung dx in january on chemo with first round on 04/17/24, copd, active smoker, and anxiety who presented through the ED with nausea, vomiting and generally feeling unwell. He reports that his
'stomach' has been hurting with gradual increase over the past few days but no localized abdominal pain or tenderness. He has seen Dr. Palomares in the past with a presentation for one episode of biliary colic, but did not pursue surgery. Yesterday,
he passed an abnormal looking stool which was not bloody followed by a more normal stool after that. He denies hematochezia or hematemesis. He has felt queasy since receiving chemo and has had increasing anxiety. He has not had much of an appetite.
He follows at [facility] for mental health care since his recent cancer diagnosis and conflict that has arisen within his immediate family. On exam, abdomen is soft, non-tender, non-distended.
Past Medical History
Past Medical History: Cancer (adenocarcinoma of the lung dx january 2025), COPD, GERD, Psychiatric (anxiety, cholelithiasis) and Other (spontaneous ptx)
Social History
Tobacco: Smoker
Alcohol: None
Living: Alone
Employment: Disabled
Family History
Family History: Cancer (Mother of lung cancer)
Allergies / Home Medications
Allergy/AdvReac Type Severity Reaction Status Date / Time
diclofenac Allergy Nausea / Verified 04/21/25 17:16
Vomiting
NSAIDS (Non-Steroidal Allergy Nausea / Verified 04/21/25 23:07
Anti-Inflamma Vomiting
�Medication �Instructions �Recorded �Confirmed �Type
alprazolam 1 mg tablet 1 mg PO TID anxiety 06/24/21 04/21/25 History
ibuprofen 200 mg tablet 200 mg PO Q6H PRN pain 03/16/25 04/21/25 History
oxycodone-acetaminophen 5 mg-325 1 tab PO TID PRN Pain #10 tabs 04/03/25 04/21/25 Rx
mg tablet (Percocet)
famotidine 10 mg tablet 10 mg PO DAILY 04/14/25 04/21/25 History
gabapentin 300 mg capsule 300 mg PO DAILY 04/14/25 04/21/25 History
meloxicam 15 mg tablet 15 mg PO DAILY 04/14/25 04/21/25 History
Review of Systems
-
History Source: Patient
All other systems: Negative unless noted
A 10 point review of systems was completed, and was negative except as per HPI.
Physical Exam
Vital Signs
Temp Pulse Resp BP Pulse Ox
98.5 F 85 22 133/83 100
04/22/25 07:30 04/22/25 07:30 04/22/25 07:30 04/22/25 07:30 04/22/25 07:30
04/21/25 04/22/25 04/23/25
06:59 06:59 06:59
Actual Weight 64.183 kg
Body Mass Index (BMI) 23.5
Lab Results
04/22/25 05:56
04/22/25 05:56
WBC 17.6 10^3/uL (4.8-10.8) H 04/22/25 05:56
Hgb 9.2 g/dL (13.0-18.0) L 04/22/25 05:56
Hct 28.3 % (39.0-52.0) L 04/22/25 05:56
Plt Count 366 10^3/uL (130-400) 04/22/25 05:56
Abs Immat Gran (auto) 1.1 10^3/uL (0-0.05) H 04/22/25 05:56
Neutrophils % 88.6 % (42.2-75.2) H 04/22/25 05:56
Physical Exam
General: Other (anxious, shaky)
HEENT: Normocephalic and Anicteric
Respiratory: Non Labored Respirations
GI: Soft, Non Tender and Non Distended
Skin: Warm and Dry
Neuro: Awake, Alert and AO x 3
Psych: Calm
Assessment / Plan
-
64 yo male presenting for n/v after initiation of chemotherapy on 04/17/25 for adenocarcinoma of the lung. BM x2 yesterday, nonbloody. CT imaging reviewed with gallbladder findings stable from 2022, known cholelithiasis. Mobile cecum present without
evidence of volvulus or obstruction. No pneumoperitoneum or evidence of bowel threat or compromise. Abdominal exam benign. AFVSS. Leukocytosis present but trending down, received colonizing factor injection yesterday 04/20/2025 causing leukocytosis.
No plans for surgery at this time
Ok to continue CLD and advance as tolerated
Surgery to follow peripherally, please call with questions/concerns.
[2025-04-22] MEDS: LR 1000 IV (13:53)
[2025-04-22] MEDS: XANAX 1 MG PO ×2 (13:54→20:02)
[2025-04-22] MEDS: NSS IV (14:22)
[2025-04-22 15:00] VITALS: BP 118/67
[2025-04-22 23:00] VITALS: BP 116/70
[2025-04-23] MEDS: DILAUDID 0.25 MG IV (02:34)
[2025-04-23] MEDS: ZOFRAN 4 MG IV ×2 (02:34→08:31)
[2025-04-23] MEDS: LR 1000 IV (02:35)
[2025-04-23 05:37] LABS: Hematocrit 25.2 % (39.0-52.0); Hemoglobin 8.3 g/dL (13.0-18.0); Mean Corp Hgb Conc. 32.9 g/dL (33.0-37.0); Mean Corpuscular Hgb 24.2 pg (27.0-31.0); Mean Corpuscular Volume 73.5 fL (80.0-94.0); Mean Platelet Volume 9.1 fL (7.4-10.4); Platelet Count 275 10^3/uL (130-400); Red Blood Cell Count 3.43 10^6/uL (4.70-6.10); Red Cell Dist. Width 15.1 % (11.5-14.5); White Blood Cell Count 8.4 10^3/uL (4.8-10.8)
[2025-04-23 06:00] VITALS: BMI 22.6
[2025-04-23 06:00] LABS: ALT (SGPT) 27 U/L (0-50); AST (SGOT) 30 U/L (17-59); Albumin 3.1 g/dl (3.5-5.0); Alkaline Phosphatase 86 U/L (38-126); Blood Urea Nitrogen 15 mg/dl (9-20); Calcium 8.4 mg/dl (8.4-10.2); Carbon Dioxide 26 mmol/L (22-30); Chloride 105 mmol/L (98-107); Estimated Creatinine Clearance 80 ml/min; Glucose 105 mg/dl (70-99); Sodium 134 mmol/L (135-145); Total Bilirubin 0.8 mg/dl (0.2-1.3); Total Protein 5.4 g/dl (6.3-8.2); eGFR > 60.00
[2025-04-23 07:30] VITALS: BP 129/79
[2025-04-23] MEDS: XANAX 1 MG PO (08:25)
[2025-04-23 08:26] LABS: % Basophils 0.1 % (0-2); % Eosinophils 0.6 % (0-6); % Immature Granulocytes 9.5 % (0-0.5); % Lymphocytes 10.1 % (20.5-51.1); % Monocytes 0.5 % (1.7-9.3); % Neutrophils 79.2 % (42.2-75.2); Absolute Eosinophils 0.1 10^3/uL (0-0.7); Absolute Immature Granulocytes 0.8 10^3/uL (0-0.05); Absolute Lymphocytes 0.9 10^3/uL (1.2-3.4); Absolute Neutrophils 6.7 10^3/uL (1.4-6.5); Nucleated Red Blood Cells % 0 % (-)
[2025-04-23] MEDS: NEURONTIN 300 MG PO (08:26)
[2025-04-23] MEDS: PEPCID 20 MG IV (08:31)
[2025-04-23] MEDS: HEPARIN 5000 UNITS SC (08:32)
[2025-04-23] MEDS: NICODERM TRANSDERMAL 21 MG TRANSDERM (08:32)
--- NOTE | 2025-04-23 11:55 | W.PN.HOSP.TC ---
Addendum entered and electronically signed by Richard Brice MD 04/23/25 13:31:
[id number]
Original Note:
Today's Communication/Plan
-
symptomatic control
bm regimen
Assessment / Plan
Assessment / Plan
Physical Exam
General: Conversant, NAD, No Fever or Chills
HEENT: NormoCephalic, Anicteric; No Thrush
Respiratory: Clear; No Wheezes, Rales or Rhonchi
Cardiac: S1/S2 and Regular Rhythm; No Murmur, Rub, Gallop or Peripheral Edema
Breast: Deferred by me
GI: Soft, Normal Bowel Sounds and Tender (Generalized)
Genito-urinary: Deferred by me
Musculoskeletal: Clubbing (All fingernails), No Cyanosis and No Edema
Skin: Warm and Dry; No Rash or Jaundice
Neuro: AO x 3, No Motor Deficits, Nonfocal/grossly intact, Cranial Nerves Intact and No Sensory Deficits; No Slurred Speech, Facial Droop, Tremors or Sedated
Psych: Agitated
#N/V
# chemotherapy for adenocarcinoma
#Received colonizing factor injection yesterday 04/20/2025 causing leukocytosis - improving
- symptomatic improvement
-Consult general surgery Dr. Herrera aware - NTD
- Consult PT/OT/case management
-tolerating diet
#Constipation
#The cecum is mobile and has flipped into the anterior abdomen, a new finding from previous examination.
-CRS consulted - nothing to do
-bm regimen
-supportive care
-f/u outpt
#Adenocarcinoma right upper lobe mass with mets to left lung apex via bronchoscopy 02/21/2025
First chemotherapy 04/17 - 04/20/2025
Did receive growth colonizing factor on 04/20/2025
-Follows with [facility]
-f/u outpt
#Acute on chronic anemia secondary to chemotherapy
-f/u cbc outpt
-f/u onc outpt
# COPD-no acute exacerbation
# Active smoker
#previous spontaneous pneumothorax
Nicotine patch
-Cessation advised
#GERD
- switch to pepcid 20mg daily
Anxiety on chronic benzos
Continue alprazolam 1 mg p.o. 3 times daily
DVT prophylaxis
Subcu heparin
Full code
More than 30 minutes spent in discharge including
Final examination of the patient
Summarizing hospital stay
Instructions for continuing care to all relevant caregivers
Preparation of discharge records, prescriptions, and referral forms
Total time spent (in minutes): 37
Anticipated Discharge: Today
Subjective/Interval History
-
Date of Service: April 23, 2025
no acute events, feels better than admission; although appetite minimal; has had bms
Objective Data
-
Labs:
Laboratory Results
04/23/25
05:22
WBC 8.4
Hgb 8.3 L
Hct 25.2 L
Plt Count 275 D
Sodium 134 L
Potassium 4.0
Chloride 105
Carbon Dioxide 26
BUN 15
Creatinine 0.8
Glucose 105 H
Calcium 8.4
Total Bilirubin 0.8
AST 30
ALT 27
Alkaline Phosphatase 86
Vital Signs:
Vital Signs
Temp Pulse Resp BP Pulse Ox
97.5 F 98 20 129/79 98
04/23/25 07:30 04/23/25 07:30 04/23/25 07:30 04/23/25 07:30 04/23/25 08:18
I&O
04/22/25 04/23/25 04/24/25
06:59 06:59 06:59
Intake Total 690 / 690 1810 / 1810
Output Total 800 / 800 1800 / 1800
Balance -110 / -110 10 / 10
Review of Systems
-
History Source: Patient
All other systems: Not reviewed unless documented
Data Reviewed
-
Diagnostic Radiology: Report Reviewed by me
CT Scan: Report Reviewed by me
Labs: Labs Reviewed by me
--- NOTE | 2025-04-23 11:59 | CM ---
Addendum entered by Dennise Munoz 04/23/25 12:30:
Patient's sister to pick patient up at 3pm.
Original Note:
hostel manager reviewed patient's chart and met with patient and patient states that he lives alone is independent with adl's and ambulation, no dme, patient states that he has been asking for resources and had reached out to [facility] in past for
intensive case management directortraffic i manager, patient is currently being treated at [facility] Plan is [facility], referral sent to [facility].
PCP: Dr Zulma Rahman
Pharmacy: [facility]
Plan; Home with [facility].
--- NOTE | 2025-04-23 12:29 | W.DS.TRANS ---
DC Summary - Cuff Folder
-
Discharge Instructions:
Discharge Diagnosis/Procedures Nausea, abdominal discomfort
Diet Low Residue
Activity As tolerated
Blood Work cbc and cmp in 3-5 days with PCP/oncology
Instructions:
Stand-Alone Forms:
Changes to Home Medications: Yes
Discharge Medications:
DC Medications w/original date entered in [employer]
alprazolam 1 mg tablet 1 mg PO TID anxiety 06/24/21
ibuprofen 200 mg tablet 200 mg PO Q6H PRN pain 03/16/25
oxycodone-acetaminophen 5 mg-325 mg tablet (Percocet) 1 tab PO TID PRN Pain #10 tabs 04/03/25
gabapentin 300 mg capsule 300 mg PO DAILY 04/14/25
meloxicam 15 mg tablet 15 mg PO DAILY 04/14/25
bisacodyl 10 mg rectal suppository 10 mg IL [id number] PRN constipation #15 ea 04/23/25
famotidine 10 mg tablet 20 mg (2 x 10 mg) PO DAILY #30 tabs 04/23/25
ondansetron 8 mg disintegrating tablet 8 mg PO Q8H PRN nausea and vomiting 5 days #30 tabs 04/23/25
polyethylene glycol 3350 17 gram oral powder packet 17 g PO DAILYPRN PRN constipation #100 ea 04/23/25
sennosides 8.6 mg-docusate sodium 50 mg tablet 1 tab PO BIDPRN PRN constipation #60 tabs 04/23/25
Home Medication Changes
bisacodyl 10 mg rectal suppository 10 mg IL [id number] PRN constipation #15 ea 04/23/25
famotidine 10 mg tablet 20 mg (2 x 10 mg) PO DAILY #30 tabs 04/23/25
ondansetron 8 mg disintegrating tablet 8 mg PO Q8H PRN nausea and vomiting 5 days #30 tabs 04/23/25
polyethylene glycol 3350 17 gram oral powder packet 17 g PO DAILYPRN PRN constipation #100 ea 04/23/25
sennosides 8.6 mg-docusate sodium 50 mg tablet 1 tab PO BIDPRN PRN constipation #60 tabs 04/23/25
Pending Results: No
--- NOTE | 2025-04-23 14:10 | VATNOTE ---
Pt port flushed with 500 units of heparin per protocol prior to deaccessing; see worklist documentation.
== END 2025-04-23 15:31 | disposition home health service (06) | DRG 181 ==
LOC: 4 WEST ACU 23:00
PROVIDERS: Clinical Nurse Specialist Family Health; Physician Assistant Medical; ADMITTING PHYSICIAN Internal Medicine; ATTENDING PHYSICIAN Internal Medicine; CONSULT PHYSICIAN Surgery; EMERGENCY PHYSICIAN Emergency Medicine; FAMILY PHYSICIAN Nurse Practitioner Family
DX: C34.11 Malignant neoplasm of upper lobe, right bronchus or lung (principal); C78.02 Secondary malignant neoplasm of left lung; R11.10 Vomiting, unspecified; T45.1X5A Adverse effect of antineoplastic and immunosuppressive drugs, initial encounter; K59.00 Constipation, unspecified; R11.0 Nausea; D64.81 Anemia due to antineoplastic chemotherapy; D72.829 Elevated white blood cell count, unspecified; F17.210 Nicotine dependence, cigarettes, uncomplicated; F41.9 Anxiety disorder, unspecified; J43.9 Emphysema, unspecified; Z82.49 Family history of ischemic heart disease and other diseases of the circulatory system; Z80.1 Family history of malignant neoplasm of trachea, bronchus and lung; K21.9 Gastro-esophageal reflux disease without esophagitis; Z79.899 Other long term (current) drug therapy; Z80.8 Family history of malignant neoplasm of other organs or systems
CPT/HCPCS: 74022; 74177; 80053; 83605; 83690; 85025; 87040; 87070; 93005; 96361; 96374; 96375; 96376; 97162; 97166; 99285; Q9967

== ENCOUNTER 2025-05-01 08:04 | Inpatient (IN) | payer MEDICARE, OTHER, SELFPAY ==
[2025-04-27] VITALS (14 sets, daily range): BP systolic 97–142; BP diastolic 50–109; BMI 23.5; BMI 22.9
[2025-04-27] MEDS: NSS 1000 IV ×3 (03:38→21:04)
[2025-04-27] MEDS: ZOFRAN 4 MG IV ×2 (03:46→03:47)
[2025-04-27 04:07] LABS: Hematocrit 22.2 % (39.0-52.0); Hemoglobin 7.5 g/dL (13.0-18.0); Mean Corp Hgb Conc. 33.8 g/dL (33.0-37.0); Mean Corpuscular Hgb 24.2 pg (27.0-31.0); Mean Corpuscular Volume 71.6 fL (80.0-94.0); Mean Platelet Volume 10.2 fL (7.4-10.4); Platelet Count 81 10^3/uL (130-400); White Blood Cell Count 2.2 10^3/uL (4.8-10.8)
[2025-04-27 04:13] LABS: ALT (SGPT) 49 U/L (0-50); AST (SGOT) 36 U/L (17-59); Albumin 3.3 g/dl (3.5-5.0); Alkaline Phosphatase 94 U/L (38-126); Blood Urea Nitrogen 10 mg/dl (9-20); Calcium 8.7 mg/dl (8.4-10.2); Carbon Dioxide 22 mmol/L (22-30); Chloride 105 mmol/L (98-107); Estimated Creatinine Clearance 71 ml/min; Glucose 101 mg/dl (70-99); Lipase 58 U/L (23-300); Sodium 133 mmol/L (135-145); Total Bilirubin 0.4 mg/dl (0.2-1.3); Total Protein 5.6 g/dl (6.3-8.2); eGFR > 60.00
--- NOTE | 2025-04-27 04:13 | ED.GENMED ---
History of Present Illness
General
Chief Complaint: Abdominal Symptoms
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
Exam Limitations: none
Time Seen by Provider: 04/27/25 03:59
Nursing documentation reviewed up to this point in time: agreed with
History of Present Illness
History of Present Illness:
This is a 64-year-old gentleman who resides alone. 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 He had his first round of chemotherapy April 17 and April 18 and was admitted to
this hospital acutely April 21 with complaints of abdominal pain and intractable nausea and vomiting.
He has history of chronic joint pain, maintained on Percocet and meloxicam. He also has history of chronic anxiety maintained on alprazolam 1 mg 3 times daily.
While recently hospitalized found to be constipated, started on a bowel regimen. He was also started on Zofran 8 mg as needed for nausea.
Since discharge home patient states he has continued to feel poorly, poor oral intake, tolerating rice and other soft foods and passed a soft bowel movement yesterday. Tonight however he developed recurrent nausea and vomiting, unrelieved with
alprazolam at home. He is unsure as to his last Zofran but did not try this tonight. He denies hematemesis, denies hematochezia.
He admits to moderate fatigue, chronic dry cough. No shortness of breath.
Past History
Past History
ED Past Medical History: Cancer (Adenocarcinoma of the lung), GERD (Combs's esophagus), Psychiatric (Anxiety) and Other (Spontaneous pneumothorax; chronic pain syndrome chronically maintained on oxycodone)
ED Past Surgical History: Orthopedic
Social History
Tobacco: Smoker
Alcohol: None
Drug: None
Personal: Single
Living: alone
Employment: Disabled
Family History
Family History: Other (Father with melanoma)
Phy Exam
Physical Exam
Physical Exam:
GENERAL: 64-year-old somewhat cachectic appearing gentleman appears his stated age, awake and alert, appears in mild to moderate distress, holding emesis basin at the ready.
EYE: pupils equal. anicteric
NECK: Supple, nontender, no meningismus, no significant adenopathy.
ENT: posterior pharynx is clear, oral mucosa is minimally dry. TM clear b/l, nares patent.
CARDIAC: Regular rate and rhythm. no murmur.
LUNGS: Clear breath sounds bilaterally, no acute respiratory distress, no wheezes/rales/rhonchi
ABDOMEN: Soft, nondistended, without focal tenderness, normoactive BS.
NEUROLOGICAL: Alert and oriented x3, no focal neuro deficits.
SKIN: Warm and dry, normal color, skin intact. No rash.
MUSCULOSKELETAL: No C/C/E. peripheral pulses are full and equal b/l. No palpable tenderness.
PSYCH: Mildly anxious. Easily communicative.
Course
Orders/Labs/Results
Orders:
Orders
04/27/25 03:25
Electrocardiogram (*1) Urgent
Reason for Study: Abdominal Pain
04/27/25 03:26
EKG- Treatment ONCE
04/27/25 03:36
Complete Blood Count/With Diff Urgent
Comprehensive Metabolic Panel Urgent
Folate Urgent
Comment: ADD ON
Iron Urgent
Comment: ADD ON
Lipase Urgent
Manual Differential Urgent
Comment: ADD ON
Reticulocyte Count Urgent
Comment: ADD ON
Total Iron Binding Urgent
Comment: ADD ON
Vitamin B12 Urgent
Comment: ADD ON
04/27/25 03:37
0.9% Sodium Chloride 1000 ml [Nss] 1,000 ml IV BOLUS
04/27/25 03:41
Ondansetron Injectable [Zofran] 8 mg .ROUTE .[facility]
04/27/25 03:42
Ondansetron Injectable [Zofran] 8 mg Dextrose 5%/Water 50 ml [D5w] 50 ml IV NOW
04/27/25 03:46
Ondansetron Injectable [Zofran] 4 mg IV NOW STA
04/27/25 03:47
Ondansetron Injectable [Zofran] 4 mg IV NOW STA
04/27/25 04:11
HYDROmorphone [Dilaudid] 0.5 mg IV NOW STA
Lorazepam [Ativan] 0.5 mg IV NOW STA
04/27/25 04:22
CR Obstruct Series W/pa Chest Urgent
Comment:
Reason For Exam: recurrent N/V-abd pain
04/27/25 04:37
Type+Screen Urgent
04/27/25 04:58
ABO2 Urgent
BBK Wristband Number:
Associate notified that ABO2 has been ordered: [id number]
Date: 04/27/25
Time: 04:40
Structural Fitter ID: [id number]
04/27/25 05:29
Admit/Transfer Patient As Directed
Co-Sign Provider:
Level of Care: Observation services
Assign to:: Medical/Surgical
Physician / Group: Ashwin
Diagnosis: Intractable nausea and vomiting
PRN Pain Medication Management As Directed
May give lesser potent ordered pain med per pt: Yes
preference::
Protocol:: Medication orders for pain may be administered in a
manner that supports deferring to patient preference
when the pt is:
- Requesting an ordered lesser potent pain medication.
Least to most potent pain medications are defined
as: acetaminophen < NSAID < tramadol < opioids
(morphine, oxycodone, hydromorphone).
- Requesting a lesser dose of the same medication IF
ORDERED.
- Requesting a less intrusive route of administration
if both routes are prescribed by the provider (PO <
IV).
04/27/25 05:30
Code Status As Directed
Resuscitation Status: Full Code
04/27/25 05:36
Add On- LAB Stat
Tests Added?: Reticulocyte count
Add On- LAB Stat
Tests Added?: iron level, iron saturation
04/27/25 05:37
Add On- LAB Stat
Tests Added?: b12, folate
Abnormal Lab Results
04/27/25
03:36
WBC 2.2 L* 10^3/uL
(4.8-10.8)
RBC 3.10 L 10^6/uL
(4.70-6.10)
Hgb 7.5 L g/dL
(13.0-18.0)
Hct 22.2 L %
(39.0-52.0)
MCV 71.6 L fL
(80.0-94.0)
MCH 24.2 L pg
(27.0-31.0)
RDW 15.0 H %
(11.5-14.5)
Plt Count 81 L D 10^3/uL
(130-400)
Segmented Neutrophils 29 L %
(42-75)
Lymphocytes (Manual) 60 H %
(20-51)
Sodium 133 L mmol/L
(135-145)
Glucose 101 H mg/dl
(70-99)
Total Protein 5.6 L g/dl
(6.3-8.2)
Albumin 3.3 L g/dl
(3.5-5.0)
04/27/25 03:36
04/27/25 03:36
Vital Signs
Initial and Last Documented VS:
Initial Vital Signs
Temp Pulse Resp BP Pulse Ox
98.7 F 98 44 142/84 98
04/27/25 03:10 04/27/25 03:10 04/27/25 03:10 04/27/25 03:10 04/27/25 03:10
Last Documented Vital Signs
Temp Pulse Resp BP Pulse Ox
98.2 F 88 13 118/77 96
04/27/25 04:10 04/27/25 05:00 04/27/25 05:00 04/27/25 05:00 04/27/25 05:00
MDM/Problems Addressed
Differential Diagnosis Includes:
Concern for acute gastroenteritis, recurrent nausea and vomiting related to chemotherapy, recurrent constipation. Concern for acute kidney injury, electrolyte abnormality, hemopoietic derangement related to chemotherapy.
Will trial an IV dose of Zofran, initiate IV fluids.
Labs are pending.
Patient requesting Dilaudid for pain as well as something for anxiety. Will be judicious with IV narcotics and anxiolytics.
Chronic conditions affecting care: Psychiatric illness and Cancer
*Radiology
Radiology exam reviewed: preliminary read by ED provider (Obstruction series shows no evidence of obstruction or free air. Scattered stool throughout the colon. Large right mid lung field mass, unchanged from previous.)
*Pulse Oximetry
Patient hypoxic: no
*Critical Care Note
Total Time (30-74mins, 75-104mins- exclusive of procedures): Not Applicable
Update Note
Update Note:
05:00
Patient is more comfortable after IV Zofran, Dilaudid and Ativan. Continues with waves of nausea, resistant to trial oral fluids.
Labs remarkable for significant pancytopenia. He remains afebrile.
Patient has been typed and screened.
Obstruction series shows scattered stool throughout the colon but no evidence of significant constipation, no evidence of obstruction. Large mass right midlung field, similar to previous film.
Will continue IV fluids, admit to hospitalist service.
ED Attending Note
-
Portions of this chart may have been created with voice recognition software.� Occasional wrong word or��sound alike� substitutions may have occurred due to the inherent limitations of voice recognition software.
Discharge Plan
Departure
Patient Disposition: Admit
Date of Disposition: 04/27/25
Time of Disposition: 04:52
Admit to: Med/Surg
Admit to doctor: Shirley
Presentation/result/management discussed w/ accepting MD/DO: Hospitalist
Condition: Fair
Discharge Problem:
Intractable nausea and vomiting, Pancytopenia due to antineoplastic chemotherapy
Prescriptions:
No Action
alprazolam 1 MG tablet
1 mg PO TID
ibuprofen 200 mg Tablet
200 mg PO Q6H PRN (Reason: pain)
oxycodone-acetaminophen [Percocet] 5-325 mg tablet
1 tab PO TID PRN (Reason: Pain) Qty: 10 0RF
meloxicam 15 mg Tablet
15 mg PO DAILY
gabapentin 300 mg Capsule
300 mg PO DAILY
polyethylene glycol 3350 17 gram Powder In Packet
17 g PO DAILYPRN PRN (Reason: constipation) Qty: 100 0RF
sennosides-docusate sodium 8.6-50 mg Tablet
1 tab PO BIDPRN PRN (Reason: constipation) Qty: 60 0RF
bisacodyl 10 mg Suppository
10 mg IL [id number] PRN (Reason: constipation) Qty: 15 0RF
famotidine 10 mg Tablet
20 mg PO DAILY Qty: 30 0RF
ondansetron 8 mg tablet,disintegrating
8 mg PO Q8H PRN (Reason: nausea and vomiting) 5 Days Qty: 30 0RF
Referrals:
UNKNOWN - PT DOES,NOT KNOW [Family Provider]
Interventions
Interventions:
*Risk Screen - Suicide Last Done: 04/27/25 03:10
*General Assessment Last Done: 04/27/25 03:26
*Neglect/Abuse Screening Last Done: 04/27/25 03:26
*ED- Fall Risk Assessment Last Done: 04/27/25 03:26
*ED COVID-19 Vaccine History Last Done: 04/27/25 03:26
JS-Fzerra-Ouxdrjfpla Assessment Last Done: 04/27/25 03:29
Discharge Date and Time
Print Language: AUSTRALIAN
[2025-04-27] MEDS: DILAUDID 0.5 MG IV ×2 (04:15→08:11)
[2025-04-27] MEDS: ATIVAN 0.5 MG IV (04:16)
[2025-04-27 05:01] LABS: Segmented Neutrophils 29 % (42-75)
[2025-04-27 05:02] LABS: Band Neutrophils 2 % (0-3); Eosinophils 3 % (0-6); Lymphocytes 60 % (20-51); Macrocytosis 1+; Metamyelocytes 2 % (-); Microcytosis 3+; Monocytes 4 % (2-9); Normal RBC Morphology No; Nucleated Red Blood Cells 1 (-); Platelets Checked Yes
[2025-04-27 05:03] LABS: Total Cells Counted 100
--- NOTE | 2025-04-27 05:17 | HPS.HSE ---
Family Physician
-
Family Physician: NOT KNOW UNKNOWN - PT DOES
Chief Complaint
-
Intractable nausea and vomiting
History of Present Illness
This is a 64-year-old with recent past medical history significant for diagnosis of right upper lobe adenocarcinoma also affecting the mid lung and left lower lobe status post initiation of chemotherapy April 17 and acutely admitted to the hospital
April 21 with complaints of abdominal pain intractable nausea and vomiting, discharged a few days later with symptomatic treatments and now returns to the emergency department for recurrence of same symptoms.
Patient several days of hospitalization in April 21 and discharged on April 23. He had a CT scan which was and was evaluated surgery. There was no surgical intervention required. He was treated with symptomatic measures including Zofran and, pain
control and bowel regimen. Symptoms are effectively related to his chemotherapy. Patient has not has any additional chemotherapy since April 18.
Patient reports ongoing poor oral intake but no dysphagia. He is able to tolerate small bites and soft foods and had a bowel movement yesterday. This evening he developed recurrent nausea and vomiting unrelieved by the alprazolam. Did not take
the Zofran. States that they did not like the taste of the Zofran anymore and the Zofran was actually making him sick. He complains of inability to sleep due to trying to control his symptoms. He feels very tired and overwhelmed. He has not had
enough energy to set up his follow-up appointments from his last discharge. He felt he was discharged too soon before he was ready.
At 1 point he did endorse that he had leftover rise from overnight. However he is not having any actual vomiting at this time. He is not having any diarrhea. He reports that his nausea is a 2 out of 10. He mostly complains of fatigue and wanting
to sleep but not been able to do so. He denies any coffee grounds, bilious emesis or hematemesis. He has no diarrhea. Denies any hematochezia or melena.
He has a dry cough but no shortness of breath. Denies any lightheadedness or dizziness. Denies any fevers or chills. He denies any urinary symptoms.
In the emergency department blood pressure was 118/77 with a pulse of 88. He was satting 96% on room air. ECG shows normal sinus rhythm at rate of [address] or T wave changes. His white count is 2.2 down from 8.4 last discharge.
Hemoglobin 7.5 and platelet count of 81. MCV 71.6. Sodium was 133 the rest of the electrolytes were normal. BUN/creatinine were normal. LFTs were normal. Chest x-ray is unchanged from prior with known lung nodules on the right upper lobe
midlung and left lower lobe. Imaging of the abdomen shows no evidence of obstruction.
Medical History
Past Medical History
Past Medical History: Reports Other
Additional Past Medical History:
adenocarcinoma right upper lung/mid lung/left lower lobe Dx February 21, 2025 via bronchoscopy on first round of chemo started 04/17/2025
COPD
active smoker
previous spontaneous pneumothorax
GERD
anxiety.
Past Surgical History: Reports None and Other
Social History
Tobacco: Smoker (1 pack a day x 50 years)
Alcohol: None
Drug: None
Personal: Single
Living: Alone
Employment: Disabled
Family History
Family History: Other (Father obstructive gallstone history of pacemaker, A-fib, CHF age 88, mother lung cancer unsure type)
Allergies / Home Medications
Allergies reflects when Allergies were last updated in [facility].
Home Medications with original date entered in [facility]
Allergy/Medication List:
Allergies
Allergy/AdvReac Type Severity Reaction Status Date / Time
diclofenac Allergy Nausea / Verified 04/21/25 17:16
Vomiting
antiinflammatories AdvReac Nausea / Uncoded 04/21/25 17:16
Vomiting
Home Medications
alprazolam 1 mg tablet 1 mg PO TID anxiety 06/24/21
ibuprofen 200 mg tablet 200 mg PO Q6H PRN pain 03/16/25
oxycodone-acetaminophen 5 mg-325 mg tablet (Percocet) 1 tab PO TID PRN Pain #10 tabs 04/03/25
famotidine 10 mg tablet 10 mg PO DAILY 04/14/25
gabapentin 300 mg capsule 300 mg PO DAILY 04/14/25
meloxicam 15 mg tablet 15 mg PO DAILY 04/14/25
Review of Systems
-
History Source: Patient
A 12 point ROS was completed and negative except as noted: Yes
Constitutional: Denies Fever or Chills
EENT: Denies Sore Throat or Runny Nose
Respiratory: Denies Cough or Trouble Breathing
Abdomen/GI: Reports Abdominal Pain (Generalized), Nausea, Vomiting (Dry heaves) and Constipated; Denies Diarrhea
: Denies Dysuria, Frequency, Flank Pain, Incontinence, Difficulty Voiding or Urgency
Musculoskeletal: Denies Joint Pain or Edema
Skin: Denies Itching or Rash
Neurological: Reports Weakness (Generalized); Denies Dizzy or Headache
Endocrine: Reports No Symptoms
Hematologic/Lymphatic: Reports No Symptoms
Psych: Reports Other (Agitated)
Physical Exam
Vital Signs
Vital Signs
Temp Pulse Resp BP Pulse Ox
98.2 F 88 13 118/77 96
04/27/25 04:10 04/27/25 05:00 04/27/25 05:00 04/27/25 05:00 04/27/25 05:00
Physical Exam
General: Conversant (But agitated) and Pain; No Fever or Chills
HEENT: NormoCephalic, Anicteric and Other (Dry oral mucosa); No Thrush
Respiratory: Clear; No Wheezes, Rales or Rhonchi
Cardiac: S1/S2 and Regular Rhythm; No Murmur, Rub, Gallop or Peripheral Edema
Breast: Deferred by me
GI: Soft, Normal Bowel Sounds and Tender (Generalized)
Genito-urinary: Deferred by me
Musculoskeletal: Clubbing (All fingernails), No Cyanosis and No Edema
Skin: Warm and Dry; No Rash or Jaundice
Neuro: AO x 3, No Motor Deficits, Nonfocal/grossly intact, Cranial Nerves Intact and No Sensory Deficits; No Slurred Speech, Facial Droop, Tremors or Sedated
Psych: Agitated
Laboratory Results
-
04/27/25 03:36
04/27/25 03:36
Laboratory Results
Total Bilirubin 0.4 mg/dl (0.2-1.3) 04/27/25 03:36
AST 36 U/L (17-59) 04/27/25 03:36
ALT 49 U/L (0-50) 04/27/25 03:36
Alkaline Phosphatase 94 U/L (38-126) 04/27/25 03:36
Lipase 58 U/L (23-300) 04/27/25 03:36
Data Reviewed
-
Diagnostic Radiology: Image Personally Visualized and interpreted
Medical Tests (Nuc Med, Echo, EKG etc): Image Personally Visualized and interpreted
Lab Data: Labs Reviewed by me
Old Records: Reviewed
Impression/Plan
-
IMPRESSION:
64 y.o with h/o metastatic adenocarcinoma of the lungs s/p first dose of chemo on April 17- with persistence, nausea/vomiting and poor po intake since then. Was admitted on 04/23- for these symptoms in addition to abdominal pain but no etiology
was identified. Thought secondary to chemotherapy. He returns with ongoing failure to thrive. Lives by himself. His labs are notable for worsening pancytopenia. Exam is benign. Xray shows no pneumonia and no bowel obstruction. Patient has no
evidence of acute infection and no peritoneal signs. The pancytopenia likely due to chemotherapy.
PLAN:
N/V - Hyperemesis of malignancy. Dehydration
- admit to med/surg observation
- IV fluids
- pain control and laxatives
- IV zofran ok, probably oral compazine when tolerating oral well
- full liquid diet, advance as tolerated
- no indication for GI consult or surgery consult.
Pancytopenia - Day 9 s/p last chemo. Suspect marrow suppression. No signs of infection.
- neutropenic precautions
- trend plts and cbc
- check iron panel, folate/b12 and retic
- will get type and screen in am
- hematology consult.
DVT PPX - ok for lovenox sq
Code status - full code
[2025-04-27 05:52] LABS: Reticulocyte Count 0.2 % (0.4-2.8)
[2025-04-27 06:02] LABS: Absolute Neutrophils -Man Diff 0.6 10^3/uL (1.4-6.5); Iron 56 ug/dl (49-181)
[2025-04-27 06:12] LABS: Percent Saturation 27 % (20-50); Total Iron Binding Capacity 201 ug/dl (261-462)
[2025-04-27] MEDS: PEPCID 20 MG PO (07:45)
[2025-04-27] MEDS: NEURONTIN 300 MG PO (07:45)
--- NOTE | 2025-04-27 07:53 | PHANOTE ---
med red note= patient refusing to go home medication list , stated he can not talk but heard him clearly talk to the nurse. used ecw and last admission to the hospital
--- NOTE | 2025-04-27 09:02 | CON.ONC ---
Consultation
-
Date Consultation Requested: 04/27/25
Impression
Impression
64 YO M with adenocarcinoma of lung on Keytruda, carbo and Alimta presenting with nausea, vomiting and fatigue.
Plan
Plan
- continue fluid repletion
- continue antinausea medication
- continue to progress diet as tolerated
- follow up with Dr. Duran outpatient
- all other medical care per primary medical team
Patient History
Past-Medical/Surgical History
64-year-old male with [id number] tobacco history with recently diagnosed poorly differentiated adenocarcinoma of the right upper lung in january 2025, who now presents to with nausea, abdominal pain and fatigue. Patient was recommended to start
carboplatin, Alimta and pembrolizumab for systemic therapy and last treatment was on 04/18. Recieved Pegfilgrastim on April 20. He follows with Dr. Duran at [facility]. Blood work shows pancytopenia, likely secondary to systemic therapies.
Today he complains of ongoing abdominal pain, nausea and fatigue. He was recently admitted and DC 04/23, but had a poor experience and is hesitant about quality of care during this stay.
Patient Medication
�Medication �Instructions �Recorded �Confirmed �Last Taken �Type
alprazolam 1 mg tablet 1 mg PO TID anxiety 06/24/21 04/27/25 01/29/25 History
gabapentin 300 mg capsule 300 mg PO DAILY 04/14/25 04/27/25 Unknown History
meloxicam 15 mg tablet 15 mg PO DAILY 04/14/25 04/27/25 Unknown History
bisacodyl 10 mg rectal suppository 10 mg AK [id number] PRN constipation 04/23/25 04/27/25 Unknown Rx
#15 ea
polyethylene glycol 3350 17 gram 17 g PO DAILYPRN PRN constipation 04/23/25 04/27/25 Unknown Rx
oral powder packet #100 ea
sennosides 8.6 mg-docusate sodium 1 tab PO BIDPRN PRN constipation 04/23/25 04/27/25 Unknown Rx
50 mg tablet #60 tabs
carboplatin 150 mg intravenous 392 mg IV Q21D 04/27/25 04/27/25 04/18/25 History
solution
famotidine 20 mg tablet (Pepcid) 20 mg PO DAILY 04/27/25 04/27/25 Unknown History
folic acid 1 mg tablet 1 mg PO DAILY 04/27/25 04/27/25 Unknown History
ondansetron 8 mg disintegrating 8 mg PO [id number] PRN nausea 04/27/25 04/27/25 Unknown History
tablet
oxycodone-acetaminophen 5 mg-325 1 tab PO BIDPRN PRN severe pains 04/27/25 04/27/25 Unknown History
mg tablet
pembrolizumab 25 mg/mL intravenous 200 mg IV Q21D 04/27/25 04/27/25 04/18/25 History
solution (Keytruda)
pemetrexed 100 mg intravenous 855 mg IV Q21D 04/27/25 04/27/25 04/18/25 History
powder for solution
Active Medications
Generic Name Dose Route Start Last Admin
Trade Name Freq PRN Reason Stop Dose Admin
Acetaminophen 650 mg 04/27/25 06:57
Acetaminophen 325 Mg Tablet PO 05/25/25 06:56
Q4HPRN PRN
mild pain/BERGER/temp> 100.4F
Al Hydrox/Mg Hydrox/Simethicone 30 ml 04/27/25 06:57
Mag/Al/Simethicone Suspension 30 Ml Cup PO 05/25/25 06:56
Q6HPRN PRN
Heartburn
Bisacodyl 10 mg 04/27/25 06:57
Bisacodyl 10 Mg Rectal Suppository RECTAL 05/25/25 06:56
[id number] PRN
constipation
Clonazepam 0.5 mg 04/27/25 06:57
Clonazepam 0.5 Mg Tablet PO 05/25/25 06:56
Q6HPRN PRN
anxiety
Enoxaparin Sodium 40 mg 04/27/25 18:00
Enoxaparin Sodium 40 Mg/0.4 Ml Syringe SC 05/25/25 17:59
QPM KRYS
Famotidine 20 mg 04/27/25 08:00 04/27/25 07:45
Famotidine 20 Mg Tablet PO 05/25/25 07:59 20 mg
DAILY KRYS Administration
Gabapentin 300 mg 04/27/25 08:00 04/27/25 07:45
Gabapentin 300 Mg Capsule PO 05/25/25 07:59 300 mg
DAILY KRYS Administration
Hydromorphone HCl 0.5 mg 04/27/25 08:00 04/27/25 08:11
Hydromorphone 0.5 Mg/0.5 Ml Syringe IV 05/11/25 07:59 0.5 mg
Q4HPRN PRN Administration
severe pain
Sodium Chloride 1,000 mls @ 80 mls/hr 04/27/25 06:57 04/27/25 08:13
Nss IV 1,000 mls
.[id number] KRYS Administration
Ondansetron HCl 4 mg 04/27/25 10:00
Ondansetron 4 Mg/2 Ml Vial IV 05/25/25 09:59
Q6HPRN PRN
nausea and vomiting
Oxycodone HCl 5 mg 04/27/25 06:57
Oxycodone 5 Mg Regular Release Tablet PO 05/11/25 06:56
Q4HPRN PRN
moderate pain
Polyethylene Glycol 17 grams 04/27/25 06:57
Polyethylene Glycol Powder 17 Grams Packet PO 05/25/25 06:56
DAILYPRN PRN
constipation
Senna/Docusate Sodium 1 tablet 04/27/25 06:57
Docusate W/Senna (Vanessa-Colace) Tablet PO 05/25/25 06:56
BIDPRN PRN
constipation
Sodium Chloride 0 flush 04/27/25 08:00
Sodium Chloride 0.9% (Flush) Syringe IV 05/25/25 07:59
PER PROTOCOL KRYS
Review of Systems
-
History Source: Patient
Constitutional: Reports Fatigue
Respiratory: Reports No Symptoms
Cardiac: Reports No Symptoms
GI: Reports Abdominal Pain and Nausea
: Reports No Symptoms
Musculoskeletal: Reports No Symptoms
Psych: Reports No Symptoms
Physical Exam
-
General: Well Developed, No Apparent Distress and Conversant
GI: Soft
Musculoskeletal: No Clubbing, No Cyanosis and No Edema
Extremities: Pulses Present
Skin: Warm and Dry
Psych: Calm
Labs
Lab Results
WBC 2.2 10^3/uL (4.8-10.8) L* 04/27/25 03:36
RBC 3.10 10^6/uL (4.70-6.10) L 04/27/25 03:36
Hgb 7.5 g/dL (13.0-18.0) L 04/27/25 03:36
Hct 22.2 % (39.0-52.0) L 04/27/25 03:36
MCV 71.6 fL (80.0-94.0) L 04/27/25 03:36
MCH 24.2 pg (27.0-31.0) L 04/27/25 03:36
MCHC 33.8 g/dL (33.0-37.0) 04/27/25 03:36
RDW 15.0 % (11.5-14.5) H 04/27/25 03:36
Plt Count 81 10^3/uL (130-400) L D 04/27/25 03:36
MPV 10.2 fL (7.4-10.4) 04/27/25 03:36
Creatinine 0.9 mg/dL (0.7-1.3) 04/27/25 03:36
Vital Signs
Vital Signs
Temp Pulse Resp BP Pulse Ox
98.2 F 85 17 124/109 97
04/27/25 04:10 04/27/25 08:15 04/27/25 08:15 04/27/25 08:00 04/27/25 08:15
--- NOTE | 2025-04-27 09:31 | W.PN.HOSP.TC ---
Today's Communication/Plan
-
See plan
Assessment / Plan
Assessment / Plan
Impression:
64 y.o with h/o metastatic adenocarcinoma of the lungs s/p first dose of chemo on April 17 with persistence, nausea/vomiting and poor po intake since then. Was admitted on for these symptoms in addition to abdominal pain but no etiology
was identified. Thought secondary to chemotherapy. He returns with ongoing failure to thrive. Lives by himself. His labs are notable for worsening pancytopenia. Exam is benign. Xray shows no pneumonia and no bowel obstruction. Patient has no
evidence of acute infection and no peritoneal signs. The pancytopenia likely due to chemotherapy.
Intermittent nausea and vomiting with poor appetite and oral intake.
Neutropenia.
Anemia with microcytosis
Pulmonary adenocarcinoma with main tumor of the right middle lobe
� Treatment with carboplatin and Keytruda.
Right chest Chemo-Port in place.
Malignant pain
Opioid induced constipation
Mild to moderate protein calorie malnutrition with BMI of 23
Plan:
Persistent GI symptoms including nausea and emesis leading to poor oral intake
Exam with benign abdomen. No thrush.
Abdominal imaging including x-ray on admission with no evidence of intestinal obstruction.
Recent PET scan with no increased FDG activity below diaphragm.
Extremely anxious.
Advance diet to low residue.
Monitor oral intake and wean off IV fluids.
Continue antiemetics.
Continue Pepcid
Pulmonary adenocarcinoma.
Treated with carboplatin and Keytruda.
Neutropenia
Microcytic anemia
Suspect due to myeloma suppression with chemotherapy. Noted suppressed reticulocyte count and sufficient iron stores
Follow CBC
Patient reports to be extremely tired and that could be related to symptomatic anemia
Consider transfusion if hemoglobin falls below 7.5.
Malignant pain
Continue oxycodone and gabapentin.
Attempt to wean off IV hydromorphone
Bowel regimen
Anticipated Discharge: 24 - 48 hours
Subjective/Interval History
-
Date of Service: April 27, 2025
Objective Data
-
Labs:
Laboratory Results
04/27/25
03:36
WBC 2.2 L*
Hgb 7.5 L
Hct 22.2 L
Plt Count 81 L D
Sodium 133 L
Potassium 4.0
Chloride 105
Carbon Dioxide 22
BUN 10
Creatinine 0.9
Glucose 101 H
Calcium 8.7
Total Bilirubin 0.4
AST 36
ALT 49
Alkaline Phosphatase 94
Vital Signs:
Vital Signs
Temp Pulse Resp BP Pulse Ox
98.2 F 85 17 124/109 97
04/27/25 04:10 04/27/25 08:15 04/27/25 08:15 04/27/25 08:00 04/27/25 08:15
Physical Exam
-
General: Well Developed and No Apparent Distress
HEENT: Normocephalic, Atraumatic and Moist Mucous Membranes
Respiratory: Clear to Auscultation
Cardiac: Regular Rhythm and S1/S2; Negative Murmur, Rub or Gallop
GI: Soft, Nontender, Nondistended and Normal Bowel Sounds; Negative Organomegaly
Rectal: Deferred by Provider
Musculoskeletal: No Clubbing, No Cyanosis and No Edema
Skin: Negative Rash
Neuro: Nonfocal/Grossly Intact
[2025-04-27 11:35] LABS: Folate 7.9 ng/ml (2.76-20); Vitamin B12 892 pg/ml (239-931)
[2025-04-27] MEDS: ROXICODONE 5 MG PO (15:51)
--- NOTE | 2025-04-27 15:56 | PTCARENOTE ---
pt arrived from ED at 1445, walked off stretcher and to the bathroom and had a BM. Pt arrived to ed with right subq port that was accessed in ED and fluids running through. Pt is resting comfortably on bed given medication for pain. Plan of care
ongoing.
[2025-04-27] MEDS: LOVENOX 40 MG SC (17:17)
[2025-04-27] MEDS: XANAX 1 MG PO (17:39)
[2025-04-28] VITALS (8 sets, daily range): BP systolic 98–116; BP diastolic 59–75
[2025-04-28] MEDS: ROXICODONE 5 MG PO ×2 (03:26→22:48)
--- NOTE | 2025-04-28 03:35 | PTCARENOTE ---
Patient's blood pressure found to be 97/54 and when rechecked it was the same. GENEVA King notified. Upon recheck it was 109/63. Patient also wanted Roxicodone for pain. GENEVA King notified of findings. Will continue to monitor.
[2025-04-28 05:28] LABS: ALT (SGPT) 64 U/L (0-50); AST (SGOT) 50 U/L (17-59); Albumin 2.8 g/dl (3.5-5.0); Alkaline Phosphatase 91 U/L (38-126); Blood Urea Nitrogen 8 mg/dl (9-20); Calcium 7.9 mg/dl (8.4-10.2); Carbon Dioxide 23 mmol/L (22-30); Chloride 106 mmol/L (98-107); Estimated Creatinine Clearance 71 ml/min; Glucose 95 mg/dl (70-99); Potassium 3.7 mmol/L (3.5-5.1); Sodium 134 mmol/L (135-145); Total Bilirubin 0.2 mg/dl (0.2-1.3); eGFR > 60.00
[2025-04-28 05:35] LABS: Hematocrit 21.5 % (39.0-52.0); Mean Corp Hgb Conc. 32.6 g/dL (33.0-37.0); Mean Corpuscular Hgb 24.5 pg (27.0-31.0); Mean Corpuscular Volume 75.2 fL (80.0-94.0); Mean Platelet Volume 10.2 fL (7.4-10.4); Platelet Count 64 10^3/uL (130-400); Red Blood Cell Count 2.86 10^6/uL (4.70-6.10); Red Cell Dist. Width 15.4 % (11.5-14.5); White Blood Cell Count 10.4 10^3/uL (4.8-10.8)
[2025-04-28 05:47] LABS: Anisocytosis 1+; Band Neutrophils 2 % (0-3); Eosinophils 9 % (0-6); Hypochromasia 1+; Lymphocytes 31 % (20-51); Metamyelocytes 2 % (-); Monocytes 7 % (2-9); Myelocytes 2 % (-); Normal RBC Morphology No; Platelets Checked Yes; Polychromasia 1+; Segmented Neutrophils 47 % (42-75); Total Cells Counted 100
[2025-04-28] MEDS: NSS 1000 IV ×2 (08:06→22:22)
[2025-04-28] MEDS: NEURONTIN 300 MG PO (08:08)
[2025-04-28] MEDS: ZOFRAN 4 MG IV (08:08)
[2025-04-28] MEDS: PEPCID 20 MG PO (08:08)
--- NOTE | 2025-04-28 09:01 | VNURNOTE ---
Chart reviewed. [facility], PT, [employer]. Will continue to follow hospital course and DC plans.
[2025-04-28] MEDS: XANAX 1 MG PO ×2 (09:09→15:58)
--- NOTE | 2025-04-28 09:41 | W.PN.ONC2 ---
Today's Communication / Plan
-
see plan
Impression
Impression
64 YO M with adenocarcinoma of lung on Keytruda, carbo and Alimta presenting with nausea, vomiting and fatigue.
Plan
Plan
- consider 1 unit of blood as Hb is 7 today
- continue fluid repletion
- continue antinausea medication
- continue to progress diet as tolerated
- follow up with Dr. Duran outpatient
- all other medical care per primary medical team
Subjective/Objective
Subjective
Patient reports still feeling week this morning, with ongoing nausea. He is able to tolerate diet slowly and has not had any episodes of vomiting. He reiterated and insisted that he does not feel ready to be DC. Hb is dropping steadily to 7 today.
Vital Signs:
Vital Signs
Temp Pulse Resp BP Pulse Ox
97.9 F 102 16 102/63 92
04/28/25 07:25 04/28/25 07:25 04/28/25 07:25 04/28/25 07:25 04/28/25 07:25
Lab Results:
Laboratory Data
WBC 10.4 10^3/uL (4.8-10.8) 04/28/25 04:43
Hgb 7.0 g/dL (13.0-18.0) L 04/28/25 04:43
Plt Count 64 10^3/uL (130-400) L D 04/28/25 04:43
eGFR > 60.00 04/28/25 04:43
Physical Exam
General: AAOx3, conversant, in bed resting
GI: Soft
Extremities: No C/C/E
Review of Systems
Review of Systems
All reviewed and negative unless otherwise stated
Gastrointestinal: Reports Nausea/Vomiting
[2025-04-28] MEDS: COMPAZINE 10 MG IV (11:56)
--- NOTE | 2025-04-28 13:43 | PTCARENOTE ---
1 unit PRBC ordered. Pt consent on chart, verified by 2RN infusing 15 min, pt tolerating denies any complaints at present.
--- NOTE | 2025-04-28 15:35 | W.PN.HOSP.TC ---
Today's Communication/Plan
-
Diet has been advanced
Continue antiemetics currently on Zofran and Compazine per
Neutropenia improved
Hemoglobin trending down to 7 with no evidence of acute blood loss.
Transfuse 1 unit of packed red blood cells and follow CBC.
Assessment / Plan
Assessment / Plan
Impression:
64 y.o with h/o metastatic adenocarcinoma of the lungs s/p first dose of chemo on April 17 with persistence, nausea/vomiting and poor po intake since then. Was admitted on for these symptoms in addition to abdominal pain but no etiology
was identified. Thought secondary to chemotherapy. He returns with ongoing failure to thrive. Lives by himself. His labs are notable for worsening pancytopenia. Exam is benign. Xray shows no pneumonia and no bowel obstruction. Patient has no
evidence of acute infection and no peritoneal signs. The pancytopenia likely due to chemotherapy.
Intermittent nausea and vomiting with poor appetite and oral intake.
Neutropenia.
Anemia with microcytosis
Pulmonary adenocarcinoma with main tumor of the right middle lobe
� Treatment with carboplatin, Alimta and Keytruda.
Right chest Chemo-Port in place.
Malignant pain
Opioid induced constipation
Mild to moderate protein calorie malnutrition with BMI of 23
Plan:
Persistent GI symptoms including nausea and emesis leading to poor oral intake
Exam with benign abdomen. No thrush.
Abdominal imaging including x-ray on admission with no evidence of intestinal obstruction.
Recent PET scan with no increased FDG activity below diaphragm.
Extremely anxious.
Advance diet to low residue.
Monitor oral intake and wean off IV fluids.
Continue antiemetics.
Continue Pepcid
Pulmonary adenocarcinoma.
Treated with carboplatin and Keytruda.
Neutropenia
Microcytic anemia
Thrombocytopenia
Suspect pancytopenia is due to myeloma suppression with chemotherapy. Noted suppressed reticulocyte count and sufficient iron stores
Follow CBC
Patient reports to be extremely tired and that could be related to symptomatic anemia
Consider transfusion if hemoglobin falls below 7.5.
Malignant pain
Continue oxycodone and gabapentin.
Attempt to wean off IV hydromorphone
Bowel regimen
Anxiety
Continue Xanax as needed
DVT prophylaxis: Mechanical. Stop Lovenox given anemia and thrombocytopenia.
Anticipated Discharge: 24 - 48 hours
Subjective/Interval History
-
Date of Service: April 28, 2025
Objective Data
-
Labs:
Laboratory Results
04/28/25
04:43
WBC 10.4
Hgb 7.0 L
Hct 21.5 L
Plt Count 64 L D
Sodium 134 L
Potassium 3.7
Chloride 106
Carbon Dioxide 23
BUN 8 L
Creatinine 0.9
Glucose 95
Calcium 7.9 L
Total Bilirubin 0.2
AST 50
ALT 64 H
Alkaline Phosphatase 91
Vital Signs:
Vital Signs
Temp Pulse Resp BP Pulse Ox
98.6 F 95 16 103/61 95
04/28/25 15:00 04/28/25 15:00 04/28/25 15:00 04/28/25 15:00 04/28/25 15:00
I&O
04/27/25 04/28/25 04/29/25
06:59 06:59 06:59
Intake Total 960 / 960 0 / 0
Output Total 500 / 500
Balance 460 / 460 0 / 0
Physical Exam
-
General: Well Developed and No Apparent Distress
HEENT: Normocephalic, Atraumatic and Moist Mucous Membranes
Respiratory: Clear to Auscultation
Cardiac: Regular Rhythm and S1/S2; Negative Murmur, Rub or Gallop
GI: Soft, Nontender, Nondistended and Normal Bowel Sounds; Negative Organomegaly
Rectal: Deferred by Provider
Musculoskeletal: No Clubbing, No Cyanosis and No Edema
Skin: Negative Rash
Neuro: Nonfocal/Grossly Intact
--- NOTE | 2025-04-28 15:44 | CM ---
Addendum entered by Indigo Servin 04/28/25 15:52:
Patient lives in a 1 story home alone, no steps to enter
Current with [facility], denies Rehab in past
Notified Norma liaison [facility]
CM consult completed - Information on Advanced Directives given to patient
PLAN: Home, [facility]
Original Note:
Patient seen at bedside
IA completed
Role of CM explained
patient receiving prbc
OBS status - form reviewed - in chart
Dx: Intractable N/V
PMH: metastatic adenocarcinoma of the lungs s/p first dose of chemo on April 17
he states his sister transported
Treatment with carboplatin, Alimta and Keytruda.
Right chest Chemo-Port in place
PLOF: Independent, no assistive device
Denies DME
PCP: Zulma Armas/Roe Vyas, [facility]
Pharmacy: [place] [facility] [place]
PLAN: TBD, follow hospital progress
[2025-04-29] MEDS: XANAX 1 MG PO ×3 (00:46→20:40)
[2025-04-29 03:00] VITALS: BP 99/60
[2025-04-29 06:27] LABS: Hematocrit 24.2 % (39.0-52.0); Hemoglobin 8.1 g/dL (13.0-18.0); Mean Corp Hgb Conc. 33.5 g/dL (33.0-37.0); Mean Corpuscular Hgb 24.5 pg (27.0-31.0); Mean Corpuscular Volume 73.3 fL (80.0-94.0); Platelet Count 66 10^3/uL (130-400); Red Cell Dist. Width 16.2 % (11.5-14.5); White Blood Cell Count 29.3 10^3/uL (4.8-10.8)
[2025-04-29 06:38] LABS: Blood Urea Nitrogen 6 mg/dl (9-20); Carbon Dioxide 24 mmol/L (22-30); Chloride 105 mmol/L (98-107); Estimated Creatinine Clearance 64 ml/min; Glucose 90 mg/dl (70-99); Potassium 3.5 mmol/L (3.5-5.1); Sodium 134 mmol/L (135-145); eGFR > 60.00
[2025-04-29 07:01] LABS: Band Neutrophils 5 % (0-3); Lymphocytes 16 % (20-51); Metamyelocytes 1 % (-); Microcytosis 3+; Monocytes 2 % (2-9); Myelocytes 9 % (-); Normal RBC Morphology No; Platelets Checked Yes; Segmented Neutrophils 67 % (42-75); Total Cells Counted 100
[2025-04-29] MEDS: NEURONTIN 300 MG PO (07:40)
[2025-04-29] MEDS: PEPCID 20 MG PO (07:40)
[2025-04-29 07:50] VITALS: BP 93/61
[2025-04-29] MEDS: ProAmatine 2.5 MG PO ×3 (08:14→17:11)
[2025-04-29] MEDS: ROXICODONE 5 MG PO ×2 (08:15→16:30)
--- NOTE | 2025-04-29 08:53 | W.PN.HOSP.TC ---
Today's Communication/Plan
-
Stop IVF
Use midodrine
Ok to give Xanax and oxy
Folic acid
Assessment / Plan
Assessment / Plan
Physical Exam
General: chronically ill looking. No Apparent Distress
HEENT: Normocephalic, Atraumatic and Moist Mucous Membranes
Respiratory: Clear to Auscultation
Cardiac: Regular Rhythm and S1/S2; Negative Murmur, Rub or Gallop, port in upper chest
GI: Soft, Nontender, Nondistended and Normal Bowel Sounds
Musculoskeletal: No Clubbing, positive Cyanosis and No Edema
Skin: Negative Rash
Neuro: Nonfocal/Grossly Intact, AAOX3
Psych: calm
Impression:
64 y.o with h/o metastatic adenocarcinoma of the lungs s/p first dose of chemo on April 17 with persistence, nausea/vomiting and poor po intake since then. Was admitted on 04/23- for these symptoms in addition to abdominal pain but no etiology
was identified. Thought secondary to chemotherapy. He returns with ongoing failure to thrive. Lives by himself. His labs are notable for worsening pancytopenia. Exam is benign. Xray shows no pneumonia and no bowel obstruction. Patient has no
evidence of acute infection and no peritoneal signs. The pancytopenia likely due to chemotherapy.
Intermittent nausea and vomiting with poor appetite and oral intake.
Neutropenia.
Anemia with microcytosis
Pulmonary adenocarcinoma with main tumor of the right middle lobe
� Treatment with carboplatin, Alimta and Keytruda.
Right chest Chemo-Port in place.
Malignant pain
Opioid induced constipation
Mild to moderate protein calorie malnutrition with BMI of 23
Plan:
Persistent GI symptoms including nausea and emesis leading to poor oral intake due to chemotherapy for adenocarcinoma
Exam with benign abdomen. No thrush.
Abdominal imaging including x-ray on admission with no evidence of intestinal obstruction.
Recent PET scan with no increased FDG activity below diaphragm.
Negative Lipase
Advance diet to low residue. Seems to tolerate diet , can stop IVF
Monitor oral intake and wean off IV fluids.
Continue antiemetics.
Continue Pepcid
# Hypotension due to his chemotherapy
Can try midodrine
# Chronic pain syndrome with opioid dependency
Chronic benzodiazepine use
ok to resume Xanax and oxy
# Pulmonary adenocarcinoma.Malignant neoplasm of upper lobe of right lung
Roger Campbell ( oncology)
Treated with carboplatin and Keytruda.
Neutropenia
Microcytic anemia
Thrombocytopenia
Pancytopenia is due to myeloma suppression with chemotherapy. Noted suppressed reticulocyte count and sufficient iron stores
Patient reports to be extremely tired and that could be related to symptomatic anemia
s/p one unit of RBC on 04/28
Resume Folate
# Hyponatremia
Anxiety
Continue Xanax as needed
DVT prophylaxis: Mechanical. Stopped Lovenox given anemia and thrombocytopenia.
Total time spent to see the patient, examine the patient, review data and lab results, discuss treatment plan with patient and nursing staff around 55 minutes
Anticipated Discharge: > 48 hours
Subjective/Interval History
-
Date of Service: April 29, 2025
He reports his symptoms are not well managed, he wants to go back on his daily meds of Xanax and percocet
He deneis feeling symptoms when his blood pressure is low
Objective Data
-
Labs:
Laboratory Results
04/29/25
05:33
WBC 29.3 H
Hgb 8.1 L
Hct 24.2 L
Plt Count 66 L
Sodium 134 L
Potassium 3.5
Chloride 105
Carbon Dioxide 24
BUN 6 L
Creatinine 1.0
Glucose 90
Calcium 8.0 L
Vital Signs:
Vital Signs
Temp Pulse Resp BP Pulse Ox
98.3 F 104 17 93/61 104
04/29/25 07:50 04/29/25 07:50 04/29/25 07:50 04/29/25 07:50 04/29/25 07:50
I&O
04/28/25 04/29/25 04/30/25
06:59 06:59 06:59
Intake Total 960 / 960 2350 / 2350
Output Total 500 / 500 1510 / 1510
Balance 460 / 460 840 / 840
[2025-04-29] MEDS: NSS IV ×2 (10:03→21:38)
[2025-04-29] MEDS: FOLVITE 1 MG PO (10:05)
--- NOTE | 2025-04-29 12:41 | CM ---
Patient chart reviewed
OBS status form in chart
Current with [facility] - referral in [facility]
Spoke with Josias Garber at [facility] who states she has been working with [facility] with getting the patient additional services. She stated that she was to visit him on 05/02
PLAN: home with [facility] when stable, CM to continue to follow
[2025-04-29 15:26] VITALS: BP 103/64
[2025-04-29] MEDS: ROXICODONE PO (20:33)
[2025-04-29 23:00] VITALS: BP 112/65
[2025-04-30] MEDS: ROXICODONE 5 MG PO ×3 (01:38→22:29)
[2025-04-30 07:37] VITALS: BP 110/68
[2025-04-30] MEDS: ProAmatine 2.5 MG PO ×3 (07:51→17:16)
[2025-04-30] MEDS: NEURONTIN 300 MG PO (07:51)
[2025-04-30] MEDS: PEPCID 20 MG PO (07:52)
[2025-04-30] MEDS: FOLVITE 1 MG PO (07:52)
[2025-04-30] MEDS: XANAX 1 MG PO ×3 (09:24→23:31)
--- NOTE | 2025-04-30 10:28 | W.PN.HOSP.TC ---
Today's Communication/Plan
-
Start PPI
He wants oxy to be scheduled to TID
Assessment / Plan
Assessment / Plan
Physical Exam
General: chronically ill looking. No Apparent Distress
HEENT: Normocephalic, Atraumatic and Moist Mucous Membranes
Respiratory: Clear to Auscultation
Cardiac: Regular Rhythm and S1/S2; Negative Murmur, Rub or Gallop, port in upper chest
GI: Soft, Nontender, Nondistended and Normal Bowel Sounds
Musculoskeletal: No Clubbing, positive Cyanosis and No Edema
Skin: Negative Rash
Neuro: Nonfocal/Grossly Intact, AAOX3
Psych: calm
Impression:
64 y.o with h/o metastatic adenocarcinoma of the lungs s/p first dose of chemo on April 17- with persistence, nausea/vomiting and poor po intake since then. Was admitted on for these symptoms in addition to abdominal pain but no etiology
was identified. Thought secondary to chemotherapy. He returns with ongoing failure to thrive. Lives by himself. His labs are notable for worsening pancytopenia. Exam is benign. Xray shows no pneumonia and no bowel obstruction. Patient has no
evidence of acute infection and no peritoneal signs. The pancytopenia likely due to chemotherapy.
Intermittent nausea and vomiting with poor appetite and oral intake.
Neutropenia.
Anemia with microcytosis
Pulmonary adenocarcinoma with main tumor of the right middle lobe
� Treatment with carboplatin, Alimta and Keytruda.
Right chest Chemo-Port in place.
Malignant pain
Opioid induced constipation
Mild to moderate protein calorie malnutrition with BMI of 23
Plan:
Persistent GI symptoms including nausea and emesis leading to poor oral intake due to chemotherapy for adenocarcinoma
Seems secondary to meloxicam, pt feels his GI upset started after that medicine.
He is now feeling much better, he denies nausea and tolerating diet
Exam with benign abdomen. No thrush.
Abdominal imaging including x-ray on admission with no evidence of intestinal obstruction.
Recent PET scan with no increased FDG activity below diaphragm.
Negative Lipase
Started on PPI
Continue antiemetics.
Continue Pepcid
# Hypotension due to his chemotherapy
Resolved with midodrine and feels much better
# Chronic pain syndrome with opioid dependency
Chronic benzodiazepine use
ok to resume Xanax and oxy. He wants oxy to be TID scheduled.
# Pulmonary adenocarcinoma.Malignant neoplasm of upper lobe of right lung
Roger Campbell ( oncology)
Treated with carboplatin and Keytruda.
Neutropenia
Microcytic anemia
Thrombocytopenia
Pancytopenia is due to myeloma suppression with chemotherapy. Noted suppressed reticulocyte count and sufficient iron stores
Patient reports to be extremely tired and that could be related to symptomatic anemia
s/p one unit of RBC on 04/28
Resume Folate
# Hyponatremia
Anxiety
Continue Xanax as needed
DVT prophylaxis: Mechanical. Stopped Lovenox given anemia and thrombocytopenia.
Discharge planning: Patient reports living alone and his house is full of furniture and items. Patient is followed by case specialist. He was encouraged to continue working with social service and to connect with his siblings to help him through
cancer treatment. He reported his sister is a nurse at [employer].
Total time spent to see the patient, examine the patient, review data and lab results, discuss treatment plan with patient and nursing staff around 59 minutes
Anticipated Discharge: > 48 hours
Subjective/Interval History
-
Date of Service: April 30, 2025
No chest pain
No sob
He wants his pain medicine oxy to be scheduled as TID
Objective Data
-
Vital Signs:
Vital Signs
Temp Pulse Resp BP Pulse Ox
98.9 F 110 14 110/68 92
04/30/25 07:37 04/30/25 07:37 04/30/25 07:37 04/30/25 07:37 04/30/25 07:37
I&O
04/29/25 04/30/25 05/01/25
06:59 06:59 06:59
Intake Total 2350 / 2350 480 / 480
Output Total 1510 / 1510 300 / 300
Balance 840 / 840 180 / 180
--- NOTE | 2025-04-30 16:24 | CHAP ---
Called by nurse jay jay Ybarra, who requested a comprehensive advisor visit. He shared a long history of his difficulties and expressed anxiety about how he will manage after he is discharged. Emotional support provided through presence and dialogue. During the
visit I was paged for a code in ICU. Will update Pastoral Care staff on Mr. Mcconnell's situation.
[2025-04-30 18:21] VITALS: BP 106/75
[2025-04-30 23:00] VITALS: BP 103/65
[2025-05-01] MEDS: XANAX 1 MG PO (05:50)
[2025-05-01 07:17] VITALS: BP 114/69
[2025-05-01] MEDS: FOLVITE 1 MG PO (07:59)
[2025-05-01] MEDS: ProAmatine 2.5 MG PO (07:59)
[2025-05-01] MEDS: PROTONIX 40 MG PO (07:59)
[2025-05-01] MEDS: NEURONTIN 300 MG PO (07:59)
[2025-05-01] MEDS: PEPCID 20 MG PO (08:00)
[2025-05-01] MEDS: ROXICODONE 5 MG PO (08:00)
--- NOTE | 2025-05-01 10:28 | W.PN.HOSP.TC ---
Today's Communication/Plan
-
dc
Assessment / Plan
Assessment / Plan
Physical Exam
General: chronically ill looking. No Apparent Distress
HEENT: Normocephalic, Atraumatic and Moist Mucous Membranes
Respiratory: Clear to Auscultation
Cardiac: Regular Rhythm and S1/S2; Negative Murmur, Rub or Gallop, port in upper chest
GI: Soft, Nontender, Nondistended and Normal Bowel Sounds
Musculoskeletal: No Clubbing, positive Cyanosis and No Edema
Skin: Negative Rash
Neuro: Nonfocal/Grossly Intact, AAOX3
Psych: calm
Impression:
64 y.o with h/o metastatic adenocarcinoma of the lungs s/p first dose of chemo on April 17 with persistence, nausea/vomiting and poor po intake since then. Was admitted on for these symptoms in addition to abdominal pain but no etiology
was identified. Thought secondary to chemotherapy. He returns with ongoing failure to thrive. Lives by himself. His labs are notable for worsening pancytopenia. Exam is benign. Xray shows no pneumonia and no bowel obstruction. Patient has no
evidence of acute infection and no peritoneal signs. The pancytopenia likely due to chemotherapy.
Intermittent nausea and vomiting with poor appetite and oral intake.
Neutropenia.
Anemia with microcytosis
Pulmonary adenocarcinoma with main tumor of the right middle lobe
� Treatment with carboplatin, Alimta and Keytruda.
Right chest Chemo-Port in place.
Malignant pain
Opioid induced constipation
Mild to moderate protein calorie malnutrition with BMI of 23
Plan:
Persistent GI symptoms including nausea and emesis leading to poor oral intake due to chemotherapy for adenocarcinoma
Seems secondary to meloxicam, pt feels his GI upset started after that medicine.
He is now feeling much better, he denies nausea and tolerating diet
Exam with benign abdomen. No thrush.
Abdominal imaging including x-ray on admission with no evidence of intestinal obstruction.
Recent PET scan with no increased FDG activity below diaphragm.
Negative Lipase
Started on PPI
Continue antiemetics.
Continue Pepcid
# Hypotension due to his chemotherapy
Resolved with midodrine and feels much better
# Chronic pain syndrome with opioid dependency
Chronic benzodiazepine use
ok to resume Xanax and oxy. He wants oxy to be TID scheduled.
# Pulmonary adenocarcinoma.Malignant neoplasm of upper lobe of right lung
Roger Campbell ( oncology)
Treated with carboplatin and Keytruda.
Oncology aware, okay to go home. Discussed with oncology, for outpatient follow
Neutropenia
Microcytic anemia
Thrombocytopenia
Pancytopenia is due to myeloma suppression with chemotherapy. Noted suppressed reticulocyte count and sufficient iron stores
Patient reports to be extremely tired and that could be related to symptomatic anemia
s/p one unit of RBC on 04/28
Resumed Folate
# Hyponatremia
Anxiety
Continue Xanax as needed
DVT prophylaxis: Mechanical. Stopped Lovenox given anemia and thrombocytopenia.
Discharge planning: Patient wanted to meet with dietitian before discharge but I told him he would not have dietary restriction at home because his GI symptoms resolved.
Consulted high risk case manager to see the patient before discharge
Patient started to threaten staff to sign AMA if he would not leave immediately
Total discharge time spent to see the patient, examine the patient, review data and lab results, discuss discharge plan with patient, oncology and nursing staff around 65 minutes
Anticipated Discharge: Today
Subjective/Interval History
-
Date of Service: May 01, 2025
he feels better
Tolerating diet well, no nausea
feel ready to go home, he wants to see a dietitian before leaving but I told him that he wont have dietary restrictions upon discharge.
Objective Data
-
Vital Signs:
Vital Signs
Temp Pulse Resp BP Pulse Ox
98.6 F 108 18 114/69 95
05/01/25 07:17 05/01/25 07:17 05/01/25 07:17 05/01/25 07:17 05/01/25 07:17
I&O
04/30/25 05/01/25 05/02/25
06:59 06:59 06:59
Intake Total 480 / 480 1620 / 1620
Output Total 300 / 300
Balance 180 / 180 1620 / 1620
--- NOTE | 2025-05-01 10:37 | PTCARENOTE ---
patient attempting to leave AMA. RN provided ES. unable to redirect. asked for SQ port to be de accessed. IV team aware. MD aware and is discharging the patient. case management provided updates. patient insisted to leaving the hospital stating
'nobody does anything for me'. d/c finalized and printed. d/c instructions explained.
--- NOTE | 2025-05-01 10:51 | CM ---
Addendum entered by Indigo Servin 05/01/25 11:44:
Patient transported via [facility] to home - [id number] - Naveen Long
Original Note:
Patient seen at bedside
tt from UR LOC change
IMM explained & signed by patient. In chart
spoke with patient's primary contact Rickey of discharge
attempted to leave message with patient sister Kait - voicemail box full
LM with Josias Garber (casework specialist) at [facility] that patient discharge today - she stated previously was scheduled to see the patient on 05/02
[facility] and next palliative appt on 05/09
ENEDINAVN to resume care
this was explained to patient - CM to call [facility] in regards if they can provide additional resources for the patient.
Patient states he will need transportation - [employer] called
PLAN: home, with [facility], palliative care following patient
Lyft transportation called
[2025-05-01 11:00] VITALS: BP 118/71
--- NOTE | 2025-05-01 11:36 | W.PN.ONC2 ---
Today's Communication / Plan
-
Discharged if deemed medically stable
Impression
Impression
64 YO M with adenocarcinoma of lung on Keytruda, carbo and Alimta presenting with nausea, vomiting and fatigue.
Plan
Plan
- Conversation with hospitalist team regarding discharge.
- all other medical care per primary medical team
Subjective/Objective
Subjective
Patient reports no acute events overnight however is very frustrated and would like to leave. He stated that he will leave AGAINST MEDICAL ADVICE if he is not discharged by provider today. He stated he did no longer wanted to talk about his care
with me as it makes him flustered and feel sick.
Vital Signs:
Vital Signs
Temp Pulse Resp BP Pulse Ox
98.9 F 109 18 118/71 96
05/01/25 11:00 05/01/25 11:00 05/01/25 11:00 05/01/25 11:00 05/01/25 11:00
Lab Results:
Laboratory Data
WBC 29.3 10^3/uL (4.8-10.8) H 04/29/25 05:33
Hgb 8.1 g/dL (13.0-18.0) L 04/29/25 05:33
Plt Count 66 10^3/uL (130-400) L 04/29/25 05:33
eGFR > 60.00 04/29/25 05:33
Physical Exam
General: Alert and oriented x 3, conversant, resting in bed
Extremities: No C/C/E
Review of Systems
Review of Systems
Unable to obtain due to patient not answering questions
--- NOTE | 2025-05-01 15:31 | W.DCSUMMARY ---
Discharge Summary
Discharge Data
Date of Admission: 04/27/25
Date of Discharge: 05/01/25
-
Pending Results: No
Hospital Course
64 years old male with history of lung cancer presented to the hospital with nausea, abdominal pain and fatigue. Patient was receiving chemotherapy, primary oncologist Dr. Duran. Abdominal examination did not show tenderness or distention.
Abdominal x-ray did not show obstruction. Patient was started on supportive care with intravenous fluid and antiemetic medication. Patient reported that his symptoms started after starting meloxicam therapy. Patient started to improve. His blood
pressure was noted to be low and no signs of active infection. Patient was noted to be on chronic opioid and benzodiazepine therapy. Possibility of hypotension induced by medications was discussed with the patient but he wanted to continue his
current regimen of opioid and benzodiazepine. He was started on low-dose midodrine with good response. Patient tolerated diet well was able to ambulate without hypotension or dizziness. He was followed by oncologist. Patient remained
hemodynamically stable and was discharged home in a stable condition with home health services.
Discharge Plan
-
Patient Disposition: Home with Home Care
Discharge Diagnosis/Procedures: Weakness
medication induced nausea
Diet: As tolerated
Referrals:
UNKNOWN - PT DOES,NOT KNOW [Family Provider]
Easton Duran MD [Active, Hematology / Oncology] - in one to two weeks
Prescriptions:
New
midodrine 2.5 mg tablet
2.5 mg PO TID Qty: 90 0RF
Continued
alprazolam 1 MG tablet
1 mg PO TID
gabapentin 300 mg Capsule
300 mg PO DAILY
polyethylene glycol 3350 17 gram Powder In Packet
17 g PO DAILYPRN PRN (Reason: constipation) Qty: 100 0RF
sennosides-docusate sodium 8.6-50 mg Tablet
1 tab PO BIDPRN PRN (Reason: constipation) Qty: 60 0RF
bisacodyl 10 mg Suppository
10 mg SC [id number] PRN (Reason: constipation) Qty: 15 0RF
ondansetron 8 mg Tablet,Disintegrating
8 mg PO [id number] PRN (Reason: nausea)
oxycodone-acetaminophen 5-325 mg Tablet
1 tab PO BID
Patient Comments:
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
famotidine [Pepcid] 20 mg Tablet
20 mg PO DAILY
folic acid 1 mg Tablet
1 mg PO DAILY
carboplatin 150 mg Recon Soln
392 mg IV Q21D
Keytruda 25 mg/mL Solution
200 mg IV Q21D
pemetrexed 100 mg Recon Soln
855 mg IV Q21D
alprazolam [Xanax] 1 mg Tablet
1 mg PO DAILYPRN PRN (Reason: anxiety)
oxycodone-acetaminophen 5-325 mg tablet
1 tab PO DAILYPRN PRN (Reason: severe pain)
Discontinued
meloxicam 15 mg Tablet
15 mg PO DAILY
Discharge Orders:
Discharge Patient (As Directed); Ordered 05/01/25
Ordered By: Magdiel Mena
Discharge Date and Time
Discharge Date/Time: 05/01/25 12:26
Print Language: AZERI
== END 2025-05-01 12:26 | disposition home health service (06) | DRG 809 ==
LOC: 3 WEST ACU 08:04
PROVIDERS: Internal Medicine; ADMITTING PHYSICIAN Internal Medicine; ATTENDING PHYSICIAN Internal Medicine; CONSULT PHYSICIAN Internal Medicine Hematology & Oncology; EMERGENCY PHYSICIAN Emergency Medicine
PROC: 30233N1 Transfusion of Nonautologous Red Blood Cells into Peripheral Vein, Percutaneous Approach (ICD-10-PCS; 2025-04-28)
DX: D61.810 Antineoplastic chemotherapy induced pancytopenia (principal); C34.90 Malignant neoplasm of unspecified part of unspecified bronchus or lung; E87.1 Hypo-osmolality and hyponatremia; F11.20 Opioid dependence, uncomplicated; T45.1X5A Adverse effect of antineoplastic and immunosuppressive drugs, initial encounter; F17.200 Nicotine dependence, unspecified, uncomplicated; E86.0 Dehydration; R11.2 Nausea with vomiting, unspecified; M25.50 Pain in unspecified joint; R62.7 Adult failure to thrive; Z60.2 Problems related to living alone; Z68.22 Body mass index [BMI] 22.0-22.9, adult; F41.9 Anxiety disorder, unspecified; G89.4 Chronic pain syndrome; Z79.899 Other long term (current) drug therapy
CPT/HCPCS: 74022; 80048; 80053; 82607; 82746; 83540; 83550; 83690; 85025; 85045; 86850; 86900; 86901; 86920; 93005; 96361; 96374; 96375; 99285; 99406; P9016

== ENCOUNTER 2025-05-09 14:38 | Observation (INO) | payer MEDICARE, OTHER, SELFPAY ==
[2025-05-09] VITALS (7 sets, daily range): BP systolic 142–157; BP diastolic 80–100; BMI 23.2; BMI 22.5
[2025-05-09] MEDS: ZOFRAN 8 MG IV (09:10)
[2025-05-09] MEDS: PEPCID 20 MG IV (09:11)
[2025-05-09 09:28] LABS: % Basophils 0.8 % (0-2); % Eosinophils 0.3 % (0-6); % Immature Granulocytes 1.4 % (0-0.5); % Lymphocytes 7.4 % (20.5-51.1); % Monocytes 9.2 % (1.7-9.3); % Neutrophils 80.9 % (42.2-75.2); Absolute Basophils 0.1 10^3/uL (0-0.2); Absolute Immature Granulocytes 0.2 10^3/uL (0-0.05); Absolute Monocytes 1.2 10^3/uL (0.1-0.6); Absolute Neutrophils 10.8 10^3/uL (1.4-6.5); Hemoglobin 7.7 g/dL (13.0-18.0); Mean Corp Hgb Conc. 33.5 g/dL (33.0-37.0); Mean Corpuscular Hgb 24.8 pg (27.0-31.0); Mean Corpuscular Volume 74.2 fL (80.0-94.0); Mean Platelet Volume 8.4 fL (7.4-10.4); Nucleated Red Blood Cells % 0 % (-); Platelet Count 634 10^3/uL (130-400); Red Cell Dist. Width 18.5 % (11.5-14.5); White Blood Cell Count 13.3 10^3/uL (4.8-10.8)
[2025-05-09] MEDS: ATIVAN 1 MG IV (09:33)
[2025-05-09 09:37] LABS: ALT (SGPT) 13 U/L (0-50); AST (SGOT) 16 U/L (17-59); Albumin 3.2 g/dl (3.5-5.0); Alkaline Phosphatase 111 U/L (38-126); Blood Urea Nitrogen 7 mg/dl (9-20); Calcium 8.6 mg/dl (8.4-10.2); Carbon Dioxide 22 mmol/L (22-30); Chloride 109 mmol/L (98-107); Estimated Creatinine Clearance 80 ml/min; Glucose 119 mg/dl (70-99); Potassium 4.3 mmol/L (3.5-5.1); Sodium 136 mmol/L (135-145); Total Bilirubin 0.4 mg/dl (0.2-1.3); Total Protein 5.7 g/dl (6.3-8.2); eGFR > 60.00
--- NOTE | 2025-05-09 09:45 | ED.GENMED ---
History of Present Illness
General
Chief Complaint: Cancer Problem
Source: patient
Exam Limitations: none
Time Seen by Provider: 05/09/25 08:46
Nursing documentation reviewed up to this point in time: agreed with
History of Present Illness
History of Present Illness:
64 y/o M
h/o lung ca on keytruda
chronic opaites
anxiety
here for n/v x 3
started last night, pt ovmited x 3, nonbloody nonbilious emesis
no cp, sob, abd pain
no fever/chills
was just hopsialized for similar symptoms, but he was relating it to being caused by meloxicam which was discontinued
while hospitalized, according to multiple notes, pt was unhappy with his care and felt that he never fully improved, and requested to be discharged anyway
he says he has palliative care appt coming up but is not on hospice
he does have chronic anemia
no black stool
Past History
Past History
ED Past Medical History: Cancer (Adenocarcinoma of the lung), GERD (Combs's esophagus), Psychiatric (Anxiety) and Other (Spontaneous pneumothorax; chronic pain syndrome chronically maintained on oxycodone)
ED Past Surgical History: Orthopedic
Social History
Tobacco: Smoker
Alcohol: None
Drug: None
Personal: Single
Living: alone
Employment: Disabled
Family History
Family History: Other (Father with melanoma)
Review of Systems
Review of Systems
Allergies reviewed?: Yes
All Other Systems: Not applicable
Phy Exam
Physical Exam
Physical Exam:
GENERAL: Alert , chronically ill-appearing, cachectic, moaning
EYE: pupils equal and reactive
NECK: Supple
ENT: o/p clr, dry mouth
CARDIAC: Regular rate and rhythm .
LUNGS: Clear breath sounds bilaterally, no acute respiratory distress, no wheezes/rales/rhonchi
ABDOMEN: Soft, without focal tenderness, no r/g, no cvat, normal bowel sounds
NEUROLOGICAL: Alert and oriented, no focal neuro deficits
SKIN: Warm and dry, skin intact.
MUSCULOSKELETAL: No edema, well perfused. neg courtney's sign
PSYCH: Normal and appropriate interaction.
Course
Orders/Labs/Results
Orders:
Orders
05/09/25 08:54
Electrocardiogram (*1) Urgent
Reason for Study: QTc Monitoring
EKG- Treatment ONCE
Famotidine [Pepcid] 20 mg IV NOW STA
Ondansetron Injectable [Zofran] 8 mg IV NOW STA
Oxycodone/Acetaminophen [Percocet 5/325] 1 tablet PO NOW STA
CR Obstruct Series W/pa Chest Urgent
Comment:
Reason For Exam: vomiting, h/o cancer
05/09/25 08:56
Complete Blood Count/With Diff Urgent
Comprehensive Metabolic Panel Urgent
Lipase Urgent
05/09/25 09:18
Lorazepam [Ativan] 1 mg IV NOW STA
05/09/25 11:26
Diphenhydramine [Benadryl] 25 mg IV NOW STA
Metoclopramide [Reglan] 10 mg IV NOW STA
05/09/25 13:22
Admit/Transfer Patient As Directed
Co-Sign Provider:
Level of Care: Observation services
Assign to:: Medical/Surgical
Physician / Group: [email or web address]
Diagnosis: recurrent N/V/ abdominal pain of unclear origin
05/09/25 13:26
Code Status As Directed
Resuscitation Status: Full Code
Abnormal Lab Results
05/09/25
08:56
WBC 13.3 H 10^3/uL
(4.8-10.8)
RBC 3.10 L 10^6/uL
(4.70-6.10)
Hgb 7.7 L g/dL
(13.0-18.0)
Hct 23.0 L %
(39.0-52.0)
MCV 74.2 L fL
(80.0-94.0)
MCH 24.8 L pg
(27.0-31.0)
RDW 18.5 H %
(11.5-14.5)
Plt Count 634 H 10^3/uL
(130-400)
Abs Immat Gran (auto) 0.2 H 10^3/uL
(0-0.05)
Absolute Neuts (auto) 10.8 H 10^3/uL
(1.4-6.5)
Absolute Lymphs (auto) 1.0 L 10^3/uL
(1.2-3.4)
Absolute Monos (auto) 1.2 H 10^3/uL
(0.1-0.6)
Immature Gran % 1.4 H %
(0-0.5)
Neutrophils % 80.9 H %
(42.2-75.2)
Lymphocytes % 7.4 L %
(20.5-51.1)
Chloride 109 H mmol/L
(98-107)
BUN 7 L mg/dl
(9-20)
Glucose 119 H mg/dl
(70-99)
AST 16 L U/L
(17-59)
Total Protein 5.7 L g/dl
(6.3-8.2)
Albumin 3.2 L g/dl
(3.5-5.0)
05/09/25 08:56
05/09/25 08:56
Vital Signs
Initial and Last Documented VS:
Initial Vital Signs
Temp Pulse Resp BP Pulse Ox
36.9 C 90 20 148/80 99
05/09/25 08:40 05/09/25 08:40 05/09/25 08:40 05/09/25 08:40 05/09/25 08:40
Last Documented Vital Signs
Temp Pulse Resp BP Pulse Ox
36.9 C 93 20 148/83 97
05/09/25 08:40 05/09/25 11:35 05/09/25 08:40 05/09/25 12:00 05/09/25 12:15
MDM/Problems Addressed
Differential Diagnosis Includes:
gastritis, medication sdie effects, SBO,
MDM/Problems Addressed:
64 y/o M
lung ca on treatment
multiple admissions for n/v/abd pain
here with n/v overnight with vomit x 3
usually his symptoms are mostly nausea
he has no pain but signficant nause aand is moaning frequently
he appears cachectic
moaning
dehydrated
abdomen flat and nontender
ekg qtc normal
nonischemic
given zofran 8 mg without relief
was moaning and anxious; takes xanax daily and didn't take it today; also didn't take percocet
offered percocret but pt declined
ativan given for antiemetic properties
pt slept for a while; woke him up and he began moaning again
we talked about d/c home, pt has outpatietn palliative appt comign up
but then he started dry heaving again saying he was still nauseated
pt given reglan/benadryl
and he slept for a while again but then woke up and said he cannot go home and would like to be admitted
*Critical Care Note
Total Time (30-74mins, 75-104mins- exclusive of procedures): Not Applicable
ED Attending Note
-
Portions of this chart may have been created with voice recognition software.� Occasional wrong word or��sound alike� substitutions may have occurred due to the inherent limitations of voice recognition software.
Discharge Plan
Departure
Patient Disposition: Admit
Date of Disposition: 05/09/25
Time of Disposition: 12:47
Admit to: Med/Surg
Presentation/result/management discussed w/ accepting MD/DO: Hospitalist
Condition: Fair
Covid-19: Not Applicable
Discharge Problem:
Intractable nausea and vomiting
Prescriptions:
No Action
alprazolam 1 MG tablet
1 mg PO TID
gabapentin 300 mg Capsule
300 mg PO DAILY
polyethylene glycol 3350 17 gram Powder In Packet
17 g PO DAILYPRN PRN (Reason: constipation) Qty: 100 0RF
sennosides-docusate sodium 8.6-50 mg Tablet
1 tab PO BIDPRN PRN (Reason: constipation) Qty: 60 0RF
ondansetron 8 mg Tablet,Disintegrating
8 mg PO [id number] PRN (Reason: nausea)
oxycodone-acetaminophen 5-325 mg Tablet
1 tab PO BID
Patient Comments:
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
famotidine [Pepcid] 20 mg Tablet
20 mg PO DAILY
folic acid 1 mg Tablet
1 mg PO DAILY
carboplatin 150 mg Recon Soln
392 mg IV Q21D
Keytruda 25 mg/mL Solution
200 mg IV Q21D
pemetrexed 100 mg Recon Soln
855 mg IV Q21D
alprazolam [Xanax] 1 mg Tablet
1 mg PO DAILYPRN PRN (Reason: anxiety)
midodrine 2.5 mg tablet
2.5 mg PO TID Qty: 90 0RF
Referrals:
UNKNOWN - PT DOES,NOT KNOW [Family Provider]
Interventions
Interventions:
*Risk Screen - Suicide Last Done: 05/09/25 08:40
*General Assessment Last Done: 05/09/25 08:50
*Neglect/Abuse Screening Last Done: 05/09/25 08:40
*ED- Fall Risk Assessment Last Done: 05/09/25 08:50
*ED COVID-19 Vaccine History Last Done: 05/09/25 08:50
Discharge Date and Time
Print Language: CHINESE
[2025-05-09 10:15] LABS: Lipase 74 U/L (23-300)
[2025-05-09] MEDS: BENADRYL 25 MG IV (11:31)
[2025-05-09] MEDS: REGLAN 10 MG IV (11:31)
--- NOTE | 2025-05-09 13:18 | HPS.HSE ---
Family Physician
-
Family Physician: NOT KNOW UNKNOWN - PT DOES
Chief Complaint
-
N/V? abdomina pian
History of Present Illness
64M smoker, HXCOPD, HX spontaneous PTX, HX adenocarcinoma of lung on Keytruda, carbo and Alimta ( last chemo as of 04/18 ) who was recently admiisted and DC'd on 05/01/25 for weakneess and medication induced nausea pw
- abdominal pain, N/V after ovaer eating
- Recieved Pegfilgrastim on April 20.
- He follows with Dr. Duran at [facility]
Medical History
Past Medical History
Past Medical History: Reports Other
Additional Past Medical History:
adenocarcinoma right upper lung/mid lung/left lower lobe Dx February 21, 2025 via bronchoscopy on first round of chemo started 04/17/2025
COPD
active smoker
previous spontaneous pneumothorax
GERD
anxiety.
Past Surgical History: Reports None and Other
Social History
Tobacco: Smoker (1 pack a day x 50 years)
Alcohol: None
Drug: None
Personal: Single
Living: Alone
Employment: Disabled
Family History
Family History: Not pertinent and Other (Father obstructive gallstone history of pacemaker, A-fib, CHF age 88, mother lung cancer unsure type)
Allergies / Home Medications
Allergies reflects when Allergies were last updated in [employer].
Home Medications with original date entered in [employer]
Allergy/Medication List:
Allergies
Allergy/AdvReac Type Severity Reaction Status Date / Time
diclofenac Allergy Nausea / Verified 04/21/25 17:16
Vomiting
antiinflammatories AdvReac Nausea / Uncoded 04/21/25 17:16
Vomiting
Home Medications
alprazolam 1 mg tablet 1 mg PO TID anxiety 06/24/21
ibuprofen 200 mg tablet 200 mg PO Q6H PRN pain 03/16/25
oxycodone-acetaminophen 5 mg-325 mg tablet (Percocet) 1 tab PO TID PRN Pain #10 tabs 04/03/25
famotidine 10 mg tablet 10 mg PO DAILY 04/14/25
gabapentin 300 mg capsule 300 mg PO DAILY 04/14/25
meloxicam 15 mg tablet 15 mg PO DAILY 04/14/25
Review of Systems
-
Constitutional: Reports No Symptoms
EENT: Reports No Symptoms
Respiratory: Reports No Symptoms
Cardiac: Reports No Symptoms
Abdomen/GI: Reports No Symptoms
: Reports No Symptoms
Musculoskeletal: Reports No Symptoms
Skin: Reports No Symptoms
Neurological: Reports No Symptoms
Endocrine: Reports No Symptoms
Hematologic/Lymphatic: Reports No Symptoms
Psych: Reports No Symptoms
Physical Exam
Vital Signs
Vital Signs
Temp Pulse Resp BP Pulse Ox
98.4 F 93 20 148/83 97
05/09/25 08:40 05/09/25 11:35 05/09/25 08:40 05/09/25 12:00 05/09/25 12:15
Physical Exam
General: Other (looks tired , unkempt )
HEENT: NormoCephalic, Atraumatic and Other (dry oral mucosa )
Respiratory: Clear
Cardiac: S1/S2 and Regular Rhythm; No Murmur or Rub
GI: Soft, Non Tender, Non Distended and Normal Bowel Sounds; No Organomegaly
Rectal: Deferred by Provider
Musculoskeletal: No Clubbing, No Cyanosis and No Edema
Skin: No Rash
Neuro: Awake, Alert, Oriented and Nonfocal/grossly intact
Psych: Other (flat affect but cooporative )
Laboratory Results
-
05/09/25 08:56
05/09/25 08:56
Laboratory Results
Total Bilirubin 0.4 mg/dl (0.2-1.3) 05/09/25 08:56
AST 16 U/L (17-59) L 05/09/25 08:56
ALT 13 U/L (0-50) 05/09/25 08:56
Alkaline Phosphatase 111 U/L (38-126) 05/09/25 08:56
Lipase 74 U/L (23-300) 05/09/25 08:56
Data Reviewed
-
Diagnostic Radiology: Report Reviewed by me
Lab Data: Labs Reviewed by me
Old Records: Reviewed
Impression/Plan
-
Vital Signs
Temp Pulse Resp BP Pulse Ox
98.4 F 93 20 148/83 97
05/09/25 08:40 05/09/25 11:35 05/09/25 08:40 05/09/25 12:00 05/09/25 12:15
Laboratory Tests
04/29/25 05/09/25
05:33 08:56
WBC 29.3 H
Hgb 8.1 L 7.7 L
MCV 73.3 L 74.2 L
Plt Count 66 L 634 H
Sodium 134 L 136
Potassium 3.5 4.3
Creatinine 1.0 0.8
eGFR > 60.00
Obst series w CXR
- Rounded density projecting over the right mid to lower lung, compatible with patient's known lung carcinoma.
- No radiographic evidence for bowel obstruction.
- No radiographic evidence for free intraperitoneal air.
04/21/25 CT Abd/pelvis W Iv Cont
- Changes of emphysema within the visualized lower lungs.
- Evidence for gallbladder wall thickening which appears stable from CT examination of November 28, 2023.
This finding is nonspecific. Given persistence, this is unlikely to represent acute cholecystitis, but please correlate clinically.
- The cecum is mobile and has flipped into the anterior abdomen, a new finding from previous examination.
- No evidence for bowel obstruction or bowel wall thickening. Question whether this mobile cecum could result in abdominal pain.
- No findings of stercoral colitis.
- Mild diffuse subcutaneous edema.
Last hospitalist admission: 04/27/25 -05/01/25
DC DXS; Weakness , medication induced nausea
ASSESSMENT & PLAN
Pending Rx reconciliation
N/V and abdominal radha - Hyperemesis of malignancy
- denied diarrhea and denied hematochezia
- Dehydration
- No radiographic evidence for bowel obstruction.
- No radiographic evidence for free intraperitoneal air.
- No longer on Meloxicam
- IV NS @100/H
- pain control and laxatives
- IV Zofran and probably oral Compazine when tolerating oral well
- full liquid diet, advance as tolerated
Worsening anemia suspect chemo related BM suppression ( baslien Hgb low 8s, currently hi 7s)
hemodynamically stable
- Type and screen
- Observe Hgb
Leucocytosis and Thrombocytosis suspect in response to Pegfilgrastim ( last dose was April 20)
HX Post chemo pancytopenia ( Worsening anemi Suspect marrow suppression. No signs of infection.
- trend CBC
HX adenocarcinoma of lung on Keytruda, carbo and Alimta ( last chemo as of 04/18 )
DVT PPX - LMWH
Full code
OBS MS
--- NOTE | 2025-05-09 13:30 | VNURNOTE ---
Chart reviewed. Patient is current with [facility] nursing. Will continue to follow hospital course and DC plans.
[2025-05-09] MEDS: DILAUDID 0.5 MG IV (15:51)
[2025-05-09] MEDS: NSS 1000 IV (15:51)
[2025-05-09] MEDS: XANAX 1 MG PO ×2 (16:18→22:23)
[2025-05-09] MEDS: LOVENOX 40 MG SC (17:08)
[2025-05-09] MEDS: NEURONTIN 300 MG PO (17:08)
[2025-05-09] MEDS: ProAmatine PO (17:09)
[2025-05-09] MEDS: PERCOCET 5/325 1 TABLET PO (19:27)
[2025-05-10 00:31] VITALS: BP 127/71
[2025-05-10] MEDS: NSS 1000 IV (03:08)
[2025-05-10 06:00] VITALS: BMI 22.2
[2025-05-10] MEDS: NEURONTIN 300 MG PO (07:40)
[2025-05-10] MEDS: FOLVITE 1 MG PO (07:41)
[2025-05-10] MEDS: XANAX 1 MG PO (07:41)
[2025-05-10] MEDS: ProAmatine 2.5 MG PO (07:41)
[2025-05-10] MEDS: PEPCID 20 MG PO (07:41)
[2025-05-10] MEDS: PERCOCET 5/325 1 TABLET PO (07:41)
[2025-05-10 07:42] VITALS: BP 119/75
[2025-05-10 08:24] LABS: Hematocrit 24.6 % (39.0-52.0); Hemoglobin 7.9 g/dL (13.0-18.0); Mean Corp Hgb Conc. 32.1 g/dL (33.0-37.0); Mean Corpuscular Hgb 24.1 pg (27.0-31.0); Mean Platelet Volume 8.7 fL (7.4-10.4); Platelet Count 686 10^3/uL (130-400); Red Blood Cell Count 3.28 10^6/uL (4.70-6.10); Red Cell Dist. Width 18.6 % (11.5-14.5); White Blood Cell Count 8.1 10^3/uL (4.8-10.8)
[2025-05-10 09:09] LABS: Blood Urea Nitrogen 6 mg/dl (9-20); Calcium 8.7 mg/dl (8.4-10.2); Carbon Dioxide 21 mmol/L (22-30); Chloride 110 mmol/L (98-107); Estimated Creatinine Clearance 70 ml/min; Glucose 87 mg/dl (70-99); Potassium 4.5 mmol/L (3.5-5.1); Sodium 140 mmol/L (135-145); eGFR > 60.00
--- NOTE | 2025-05-10 09:56 | W.DS.TRANS ---
DC Summary - Slot Service Specialist
-
Discharge Instructions:
Discharge Diagnosis/Procedures Intractable nausea vomiting and abdominal pain
secondary to acute gastroenteritis.
Diet Regular
Instructions:
Stand-Alone Forms:
Changes to Home Medications: No
Discharge Medications:
DC Medications w/original date entered in [employer]
alprazolam 1 mg tablet 1 mg PO TID anxiety 06/24/21
gabapentin 300 mg capsule 300 mg PO DAILY Pain 04/14/25
polyethylene glycol 3350 17 gram oral powder packet 17 g PO DAILYPRN PRN constipation #100 ea 04/23/25
sennosides 8.6 mg-docusate sodium 50 mg tablet 1 tab PO BIDPRN PRN constipation #60 tabs 04/23/25
alprazolam 1 mg tablet (Xanax) 1 mg PO DAILYPRN PRN anxiety 04/27/25
famotidine 20 mg tablet (Pepcid) 20 mg PO DAILY Gastrointestinal Issue 04/27/25
folic acid 1 mg tablet 1 mg PO DAILY Supplement 04/27/25
ondansetron 8 mg disintegrating tablet 8 mg PO [id number] PRN nausea 04/27/25
oxycodone-acetaminophen 5 mg-325 mg tablet 1 tab PO BID Pain 04/27/25
midodrine 2.5 mg tablet 2.5 mg PO TID #90 tabs 05/01/25
Home Medication Changes
Pending Results: No
--- NOTE | 2025-05-10 12:51 | CM ---
Addendum entered by Hilaria Bonds 05/10/25 13:05:
Pt was successfully picked up at the main lobby for drop off at his home.
Original Note:
VALERIE met with Amada at bedside. Pt admitted to OBS, HARVEY form reviewed and signed, original placed in chart.
Lyft Ride arranged for discharge to home.
Professor Of Art History: Nataliia Diaz,
Make and Model: [employer]
License plate: [id number]
Date and time: 05/10/25, 12:41 PM EDT
Ride ID: [id number]
PLAN: home, with LACIE VANESSA, palliative care following patient
Lyft transportation called
== END 2025-05-10 13:15 | disposition home health service (06) ==
LOC: 3 WEST ACU 14:38
PROVIDERS: Physician Assistant; ADMITTING PHYSICIAN Internal Medicine; ATTENDING PHYSICIAN Internal Medicine; EMERGENCY PHYSICIAN Student in an Organized Health Care Education/Training Program
DX: G89.3 Neoplasm related pain (acute) (chronic) (principal); C34.2 Malignant neoplasm of middle lobe, bronchus or lung; F41.9 Anxiety disorder, unspecified; R11.2 Nausea with vomiting, unspecified; D64.81 Anemia due to antineoplastic chemotherapy; K21.9 Gastro-esophageal reflux disease without esophagitis; G89.4 Chronic pain syndrome; T45.1X5A Adverse effect of antineoplastic and immunosuppressive drugs, initial encounter; Y92.9 Unspecified place or not applicable; D75.839 Thrombocytosis, unspecified; R64 Cachexia; E86.0 Dehydration; J44.9 Chronic obstructive pulmonary disease, unspecified; D72.829 Elevated white blood cell count, unspecified; R94.31 Abnormal electrocardiogram [ECG] [EKG]; K52.9 Noninfective gastroenteritis and colitis, unspecified; E44.0 Moderate protein-calorie malnutrition; F17.210 Nicotine dependence, cigarettes, uncomplicated; Z87.19 Personal history of other diseases of the digestive system; Z79.891 Long term (current) use of opiate analgesic; Z80.8 Family history of malignant neoplasm of other organs or systems; Z79.899 Other long term (current) drug therapy; Z92.21 Personal history of antineoplastic chemotherapy; Z82.49 Family history of ischemic heart disease and other diseases of the circulatory system; Z88.8 Allergy status to other drugs, medicaments and biological substances; Z79.1 Long term (current) use of non-steroidal anti-inflammatories (NSAID); Z68.23 Body mass index [BMI] 23.0-23.9, adult; Z95.828 Presence of other vascular implants and grafts; Z60.2 Problems related to living alone
CPT/HCPCS: 74022; 80048; 80053; 83690; 85025; 85027; 86850; 86900; 86901; 93005; 96374; 96375; 99285; 99406; G0378

== ENCOUNTER → 2025-05-16 16:30 | Outpatient (REF) | payer MEDICARE, OTHER, SELFPAY ==
[2025-05-16 17:34] LABS: ALT (SGPT) 19 U/L (0-50); AST (SGOT) 25 U/L (17-59); Albumin 3.8 g/dl (3.5-5.0); Alkaline Phosphatase 98 U/L (38-126); Blood Urea Nitrogen 8 mg/dl (9-20); Calcium 9.7 mg/dl (8.4-10.2); Carbon Dioxide 28 mmol/L (22-30); Chloride 110 mmol/L (98-107); Glucose 88 mg/dl (70-99); Potassium 4.3 mmol/L (3.5-5.1); Sodium 143 mmol/L (135-145); Total Bilirubin 0.3 mg/dl (0.2-1.3); Total Protein 6.7 g/dl (6.3-8.2); eGFR > 60.00
[2025-05-16 19:22] LABS: Hematocrit 29.1 % (39.0-52.0); Hemoglobin 9.1 g/dL (13.0-18.0); Mean Corp Hgb Conc. 31.3 g/dL (33.0-37.0); Mean Corpuscular Hgb 24.5 pg (27.0-31.0); Mean Corpuscular Volume 78.4 fL (80.0-94.0); Mean Platelet Volume 9.1 fL (7.4-10.4); Platelet Count 475 10^3/uL (130-400); Platelets Checked Yes; Red Blood Cell Count 3.71 10^6/uL (4.70-6.10); Red Cell Dist. Width 22.1 % (11.5-14.5); White Blood Cell Count 6.6 10^3/uL (4.8-10.8)
[2025-05-16 19:23] LABS: Hypochromasia 1+; Microcytosis 3+; Normal RBC Morphology No; Total Cells Counted 100
[2025-05-16 19:29] LABS: Absolute Neutrophils -Man Diff 3.3 10^3/uL (1.4-6.5); Band Neutrophils 1 % (0-3); Eosinophils 6 % (0-6); Lymphocytes 35 % (20-51); Monocytes 9 % (2-9); Segmented Neutrophils 49 % (42-75)
== END ==
LOC: REG 16:30
PROVIDERS: ATTENDING PHYSICIAN Nurse Practitioner Adult Health; FAMILY PHYSICIAN Nurse Practitioner Family
DX: C34.11 Malignant neoplasm of upper lobe, right bronchus or lung (principal)
CPT/HCPCS: 36415; 80053; 85025

== ENCOUNTER → 2025-06-06 12:43 | Outpatient (REF) | payer MEDICARE, OTHER, SELFPAY ==
[2025-06-06 13:35] LABS: ALT (SGPT) 14 U/L (0-50); AST (SGOT) 16 U/L (17-59); Albumin 4.1 g/dl (3.5-5.0); Alkaline Phosphatase 101 U/L (38-126); Blood Urea Nitrogen 15 mg/dl (9-20); Calcium 9.6 mg/dl (8.4-10.2); Carbon Dioxide 24 mmol/L (22-30); Chloride 111 mmol/L (98-107); Glucose 102 mg/dl (70-99); Potassium 4.4 mmol/L (3.5-5.1); Sodium 141 mmol/L (135-145); Total Protein 6.7 g/dl (6.3-8.2); eGFR > 60.00
[2025-06-06 13:40] LABS: Hematocrit 30.1 % (39.0-52.0); Hemoglobin 9.9 g/dL (13.0-18.0); Mean Corp Hgb Conc. 32.9 g/dL (33.0-37.0); Mean Corpuscular Volume 81.4 fL (80.0-94.0); Nucleated Red Blood Cells % 0 % (-); Platelet Count 393 10^3/uL (130-400); Red Cell Dist. Width 27.7 % (11.5-14.5)
[2025-06-06 14:43] LABS: Anisocytosis 1+; Hypochromasia 1+; Normal RBC Morphology Yes
[2025-06-06 14:44] LABS: Ovalocytes 1+
== END ==
LOC: REG 12:43
PROVIDERS: ATTENDING PHYSICIAN Internal Medicine Hematology & Oncology; FAMILY PHYSICIAN Nurse Practitioner Family
DX: C34.11 Malignant neoplasm of upper lobe, right bronchus or lung (principal)
CPT/HCPCS: 36415; 80053; 85025

== ENCOUNTER → 2025-06-28 09:11 | Outpatient (REF) | payer MEDICARE, OTHER, SELFPAY ==
[2025-06-28 09:26] LABS: Hematocrit 35.2 % (39.0-52.0); Hemoglobin 11.8 g/dL (13.0-18.0); Mean Corp Hgb Conc. 33.5 g/dL (33.0-37.0); Mean Corpuscular Volume 86.3 fL (80.0-94.0); Platelet Count 246 10^3/uL (130-400); Red Cell Dist. Width 25.1 % (11.5-14.5)
[2025-06-28 10:49] LABS: ALT (SGPT) 13 U/L (0-50); AST (SGOT) 17 U/L (17-59); Albumin 4.6 g/dl (3.5-5.0); Alkaline Phosphatase 79 U/L (38-126); Blood Urea Nitrogen 12 mg/dl (9-20); Calcium 9.5 mg/dl (8.4-10.2); Carbon Dioxide 25 mmol/L (22-30); Chloride 107 mmol/L (98-107); Glucose 82 mg/dl (70-99); Potassium 4.2 mmol/L (3.5-5.1); Sodium 139 mmol/L (135-145); Total Protein 6.9 g/dl (6.3-8.2); eGFR > 60.00
[2025-06-28 11:20] LABS: TSH 1.93 uIU/ml (0.47-4.68)
== END ==
LOC: OIDL 09:11
PROVIDERS: ATTENDING PHYSICIAN Internal Medicine Hematology & Oncology; FAMILY PHYSICIAN Nurse Practitioner Family
DX: C34.11 Malignant neoplasm of upper lobe, right bronchus or lung (principal); R53.82 Chronic fatigue, unspecified
CPT/HCPCS: 36415; 80053; 84439; 84443; 85025

== ENCOUNTER → 2025-07-18 13:46 | Outpatient (REF) | payer MEDICARE, OTHER, SELFPAY ==
[2025-07-18 13:57] LABS: Hematocrit 33.4 % (39.0-52.0); Hemoglobin 11.3 g/dL (13.0-18.0); Mean Corp Hgb Conc. 33.8 g/dL (33.0-37.0); Mean Corpuscular Volume 90.5 fL (80.0-94.0); Platelet Count 312 10^3/uL (130-400); Red Cell Dist. Width 20.0 % (11.5-14.5)
[2025-07-18 15:37] LABS: ALT (SGPT) 32 U/L (0-50); AST (SGOT) 21 U/L (17-59); Albumin 4.3 g/dl (3.5-5.0); Alkaline Phosphatase 127 U/L (38-126); Blood Urea Nitrogen 9 mg/dl (9-20); Calcium 9.3 mg/dl (8.4-10.2); Carbon Dioxide 25 mmol/L (22-30); Chloride 109 mmol/L (98-107); Glucose 100 mg/dl (70-99); Potassium 4.5 mmol/L (3.5-5.1); Sodium 142 mmol/L (135-145); Total Protein 6.8 g/dl (6.3-8.2); eGFR > 60.00
== END ==
LOC: OIDL 13:46
PROVIDERS: ATTENDING PHYSICIAN Internal Medicine Hematology & Oncology
DX: C34.11 Malignant neoplasm of upper lobe, right bronchus or lung (principal)
CPT/HCPCS: 36415; 80053; 85025

== ENCOUNTER 2025-07-23 21:04 | Emergency (ER) | payer MEDICARE, OTHER, SELFPAY ==
[2025-07-23 21:05] VITALS: BP 134/88
--- NOTE | 2025-07-23 21:49 | EDRN ---
Pt states he has Cancer, on chemo and oxycodone 3x day. Pt has had trouble with constipation, has suppositories at home but thinks he waited too long to take one. Today having abdominal discomfort and constipation. Pt states he manual disimpacted
himself and thinks he may have caused some injury. Pt reports some blood tinged toilet paper. Pt tearful during assessment. Pt states he said he was suicidal bc he was in so much pain earlier, 'I would never do anything about it though'. Pt wants
his rectum looked at for potential injury.
--- NOTE | 2025-07-24 00:32 | EDRN ---
Updated patient on delay in seeing provider as it is very busy, patient very upset and yelling that 'he's heard that before and we have him in a room with nothing' expressed to him how he made some comments about wanting to hurt himself and we take
that very serious, patient states we are a 'bunch of tidlidys' and its 'nonsense' he's in a room waiting, apologized for his wait again and stated the providers are working as quickly as they can.
--- NOTE | 2025-07-24 01:04 | EDRN ---
Patient called me back in the room to voice concerns about not taking his medications, Dr. uribe is in at bedside now seeing the patient
--- NOTE | 2025-07-24 01:12 | ED.GENMED ---
History of Present Illness
General
Chief Complaint: Bowel Problem
Source: patient
Exam Limitations: none
Time Seen by Provider: 07/24/25 00:23
Nursing documentation reviewed up to this point in time: agreed with
History of Present Illness
History of Present Illness:
Note:
CHIEF COMPLAINT(S)
Constipation and anxiety in the context of stage four lung cancer.
HISTORY OF PRESENT ILLNESS
The patient is a 64-year-old male with a recent diagnosis of stage four lung cancer, first identified in late December to early January. He reports a longstanding history of anxiety, for which he was previously on a regimen of three 1mg Xanax
(alprazolam) tablets daily, now increased to four 1mg tablets per day. He has been experiencing severe constipation, attributed to his medications, including oxycodone for pain management. He reports needing to use a suppository and manual
disimpaction to relieve his symptoms. The patient describes his stool consistency as gilberto to 'construction adhesive' in color, specifically brown, which exacerbated concerns about potential problems when attempting to defecate, specifically
bleeding. He notes not taking his pain medication due to constipation and only one of the four prescribed Xanax doses on the day of the visit. The patient has expressed feelings of isolation and the challenge of managing his symptoms alone at home.
He is concerned about his ability to leave the hospital, given his transportation situation since he arrived by [facility].
PAST MEDICAL AND SURGICAL HISTORY
Diagnosed with stage four lung cancer. A longstanding history of anxiety.
CHRONIC MEDICAL CONDITIONS SIGNIFICANTLY AFFECTING CARE
Chronic anxiety and stage four lung cancer.
SOCIAL DETERMINANTS AFFECTING HEALTH
The patient lives alone and relies on external support, such as a friend from [place], to arrange transportation for medical appointments. He experiences feelings of isolation and challenges related to housing and transportation, impacting his ability
to access healthcare.
MEDICATIONS
Xanax (alprazolam) 1 mg, four tablets daily
Oxycodone (not taken recently due to constipation)
REVIEW OF SYSTEMS
- Gastrointestinal: Severe constipation, requiring the use of suppositories and manual disimpaction.
- Psychological: Long-standing anxiety, exacerbation due to recent cancer diagnosis and associated isolation.
PROBLEM LIST
Acute:
- Constipation secondary to medication use
- Management of stage four lung cancer symptoms
Chronic:
- Anxiety
PLAN
1. Obtain an abdominal X-ray to assess for any bowel obstruction or significant findings.
2. Prescribe magnesium citrate to aid in bowel movements and provide a prescription for Colace (docusate sodium), a stool softener.
3. Ensure patient is aware of follow-up processes to manage constipation more effectively at home.
DIFFERENTIAL DIAGNOSIS
The Differential Diagnosis includes, in no particular order and is not limited to:
1. Constipation due to opioid use
2. Intestinal obstruction- no evidence on cr
3. Fecal impaction
4. Colorectal cancer (as a related concern)
5. Irritable bowel syndrome complicated by medication side-effects
6. Diverticular disease with constipation
7. Bowel ischemia (low likelihood without other symptoms)
8. Depression secondary to diagnosis of cancer affecting gastrointestinal motility
9. Polypharmacy
10. Anxiety-related gastrointestinal motility changes
CARE-UPDATE
07/24/25 - 01:19
The patient is currently not expressing any intention to harm themselves or others. Crisis team has determined the patient is stable, and he has agreed to a safety contract. No suicidal or homicidal ideation noted, and there is no comorbid plan in
place.
Disposition:
SUMMARY OF ENCOUNTER
The patient, a 63-year-old male with a diagnosis of stage four lung cancer, presented to the emergency department with complaints of constipation. The constipation is attributed to medication use, notably pain management drugs. The patient managed
to self-disimpact at home and reports feeling better at the time of evaluation. He was seen by the crisis intervention team due to initial feelings of despair upon arrival but was cleared as he denied any suicidal or homicidal ideations or plans.
DISPOSITION
Discharge
ASSESSMENT
The patients constipation is likely related to his medication regimen, primarily opioids used for pain management associated with his lung cancer. His mental health status, impacted by the recent cancer diagnosis and feelings of isolation, was
assessed and stabilized during this visit.
PLAN
The patient will be discharged with a prescription for Colace (docusate sodium), a stool softener, and magnesium citrate to assist with bowel movements.
PATIENT EDUCATION AND COUNSELING
The patient was educated on the importance of managing constipation through medication and encouraged to continue taking the prescribed stool softeners and laxatives. He was also informed about the potential side effects of his medications
contributing to constipation and advised on the benefits of maintaining a regular bowel regimen.
FOLLOW-UP INSTRUCTIONS
The patient is advised to follow up with his primary care physician or oncologist to continue the management of his lung cancer and associated symptoms, including anxiety and constipation.
MEDICATION RECONCILIATION
- Docusate sodium (Colace) prescribed.
- Magnesium citrate prescribed.
MEDICAL DECISION MAKING
- Number and Complexity of Problems Addressed: Chronic conditions affecting care include stage four lung cancer and chronic anxiety. Differential Diagnosis includes constipation due to opioid use, intestinal obstruction, fecal impaction, colorectal
cancer, irritable bowel syndrome with medication side effects, diverticular disease, bowel ischemia, depression affecting gastrointestinal motility, polypharmacy, and anxiety-related gastrointestinal motility changes.
- Data:
Category 3:
The patient was assessed by the crisis intervention team, who confirmed his mental stability in the context of despair related to his ongoing medical condition.
- Risk: The decision to prescribe medications and discharge the patient includes consideration of the increased risk of complications from medication-induced constipation, balanced with the benefit of outpatient management given the patients
improved condition. Care significantly affected by social determinants, including the patients isolation and reliance on external support for transportation and healthcare access.
DIAGNOSIS
- Constipation, likely due to opioid use (ICD-10: K59.00)
- Anxiety disorder, generalized (ICD-10: F41.1)
- Lung cancer, stage four (ICD-10: C34.90)
Past History
Past History
ED Past Medical History: Cancer (Adenocarcinoma of the lung), GERD (Combs's esophagus), Psychiatric (Anxiety) and Other (Spontaneous pneumothorax; chronic pain syndrome chronically maintained on oxycodone)
ED Past Surgical History: Orthopedic
Social History
Tobacco: Smoker
Alcohol: None
Drug: None
Personal: Single
Living: alone
Employment: Disabled
Family History
Family History: Other (Father with melanoma)
Phy Exam
Physical Exam
Physical Exam:
.
Course
Orders/Labs/Results
Orders:
Orders
07/23/25 21:14
1:1 Observation - Suicide/ Violent Behavior As Directed
Crisis Consult Urgent
Reason for Consult: SI
07/24/25 01:12
Magnesium Citrate [Citroma] 300 ml PO ONCE ONE
07/24/25 02:00
CR Abdomen - 1 View Urgent
Comment:
Reason For Exam: abd pain/cpnstipation
07/24/25 03:23
Magnesium Citrate [Citroma] 300 ml PO ONCE ONE
Vital Signs
Initial and Last Documented VS:
Initial Vital Signs
Temp Pulse Resp BP Pulse Ox
98.2 F 102 18 134/88 99
07/23/25 21:05 07/23/25 21:05 07/23/25 21:05 07/23/25 21:05 07/23/25 21:05
Last Documented Vital Signs
Temp Pulse Resp BP Pulse Ox
98.2 F 102 18 134/88 99
07/23/25 21:05 07/23/25 21:05 07/23/25 21:05 07/23/25 21:05 07/24/25 01:12
*Radiology
Radiology exam reviewed: all reviewed NAD by ED Provider
*Pulse Oximetry
SaO2: 99
Oxygen Mode of Delivery: Room air
Patient hypoxic: no
*Critical Care Note
Total Time (30-74mins, 75-104mins- exclusive of procedures): Not Applicable
ED Attending Note
-
Portions of this chart may have been created with voice recognition software.� Occasional wrong word or��sound alike� substitutions may have occurred due to the inherent limitations of voice recognition software.
Discharge Plan
Departure
Patient Disposition: Home (Routine Discharge)
Date of Disposition: 07/24/25
Time of Disposition: 03:22
Patient with high blood pressure during this ER visit?: Yes
Discharge Problem:
Constipation
Instructions: Constipation, Adult (DC), Abdominal Pain, BLOOD PRESSURE
Prescriptions:
New
docusate sodium [Colace] 100 mg capsule
100 mg PO DAILY Qty: 20 0RF
No Action
alprazolam 1 MG tablet
1 mg PO TID
gabapentin 300 mg Capsule
300 mg PO DAILY
polyethylene glycol 3350 17 gram Powder In Packet
17 g PO DAILYPRN PRN (Reason: constipation) Qty: 100 0RF
sennosides-docusate sodium 8.6-50 mg Tablet
1 tab PO BIDPRN PRN (Reason: constipation) Qty: 60 0RF
ondansetron 8 mg Tablet,Disintegrating
8 mg PO [id number] PRN (Reason: nausea)
oxycodone-acetaminophen 5-325 mg Tablet
1 tab PO BID
Patient Comments:
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
famotidine [Pepcid] 20 mg Tablet
20 mg PO DAILY
folic acid 1 mg Tablet
1 mg PO DAILY
alprazolam [Xanax] 1 mg Tablet
1 mg PO DAILYPRN PRN (Reason: anxiety)
midodrine 2.5 mg tablet
2.5 mg PO TID Qty: 90 0RF
Referrals:
UNKNOWN,NO INTERVIEW [Family Provider]
Activity Restrictions/Additional Instructions:
Thank You for choosing [facility].
It was a pleasure meeting you and taking part in your care. We hope for your continued healing and wellness.
Please read discharge instructions in their entirety. However, they are for general education and may not describe your exact diagnosis at discharge. Information on your ER visit and medical conditions were discussed with you along with appropriate
follow up information...
If indicated, please take your medications as instructed and indicated on discharge paperwork.
Please schedule a follow up appointment as directed. Call to schedule an appointment
Please return to the emergency department with ANY change in, persisting, or worsening of symptoms. If any of your symptoms do not improve, or persist, or become more severe within 6-12 hours, please return to the emergency department for further
care.
Please return to the emergency department if you develop a headache, neck pain/stiffness, fever greater than 100.4F, chest pain, shortness of breath, persistent nausea, vomiting, slurred speech, difficulty walking, numbness/tingling, weakness, signs
of infection or any other symptoms that are worrisome to you.
If you have any questions or concerns please do not hesitate to call the Hospital at
Interventions
Interventions:
*Risk Screen - Suicide Last Done: 07/23/25 21:52
*General Assessment Last Done: 07/23/25 21:48
*Neglect/Abuse Screening Last Done: 07/23/25 21:11
*ED- Fall Risk Assessment Last Done: 07/23/25 21:48
*ED COVID-19 Vaccine History Last Done: 07/23/25 21:48
*Nursing Disposition Last Done: 07/24/25 04:36
RK-Imfnbb-Cdxwiklqzo Assessment Last Done: 07/23/25 21:48
Discharge Date and Time
Discharge Date/Time: 07/24/25 04:38
Print Language: LUXEMBOURGISH
--- NOTE | 2025-07-24 01:17 | EDRN ---
Crisis in to see patient.
[2025-07-24] MEDS: CITROMA 300 ML PO (01:37)
== END 2025-07-24 04:38 | disposition home or self-care (01) ==
LOC: EMR 21:04
PROVIDERS: EMERGENCY PHYSICIAN Student in an Organized Health Care Education/Training Program
DX: K59.03 Drug induced constipation (principal); T40.2X5A Adverse effect of other opioids, initial encounter; C34.90 Malignant neoplasm of unspecified part of unspecified bronchus or lung; F41.9 Anxiety disorder, unspecified; G89.4 Chronic pain syndrome; K21.9 Gastro-esophageal reflux disease without esophagitis; K22.70 Barrett's esophagus without dysplasia; F17.200 Nicotine dependence, unspecified, uncomplicated; T40.2X6A Underdosing of other opioids, initial encounter; T42.4X6A Underdosing of benzodiazepines, initial encounter; Z91.128 Patient's intentional underdosing of medication regimen for other reason; Z60.4 Social exclusion and rejection; Z60.2 Problems related to living alone; Z59.82 Transportation insecurity; Z79.891 Long term (current) use of opiate analgesic; Z80.8 Family history of malignant neoplasm of other organs or systems
CPT/HCPCS: 99283; 74018

== ENCOUNTER 2025-07-29 15:45 | Inpatient (IN) | payer MEDICARE, OTHER, SELFPAY ==
[2025-07-29] VITALS (12 sets, daily range): BP systolic 112–160; BP diastolic 70–105; BMI 21.6; BMI 20.6
--- NOTE | 2025-07-29 10:41 | ED.GENMED ---
History of Present Illness
<Otilia Yates MD, Resident - Last Filed: 07/29/25 15:03>
General
Chief Complaint: Abnormal Lab Value
Time Seen by Provider: 07/29/25 10:19
History of Present Illness
History of Present Illness:
Mr. Mcconnell is a 64-year-old male with recent diagnosis of stage IV lung cancer with last chemotherapy on 07/20 (follows with Dr. Duran), constipation secondary to chronic opioid use for pain control, anxiety on Xanax, COPD, GERD who presents via EMS
with nausea and abdominal pain. He states that he has been having nausea for the last couple of days, and it has been worsening to the point of today. He took Zofran at home without relief. He also complains of abdominal pain and reports that he
has not taken his home oxycodone nor Xanax for anxiety. He repeatedly asks for both of these. Of note, he was seen in the ED on 07/25 for SI in 07/24 for chronic constipation, which she reports he finally surpassed with the help of suppository and
manual disimpaction plus Colace and magnesium citrate. He now reports having brown watery diarrhea that is 'messy' and difficult for him to manage. He denies fever/chills, vomiting, trauma, and recent changes diet.
Past History
<Otilia Yates MD, Resident - Last Filed: 07/29/25 15:03>
Past History
ED Past Medical History: Cancer (Adenocarcinoma of the lung), GERD (Combs's esophagus), Psychiatric (Anxiety) and Other (Spontaneous pneumothorax; chronic pain syndrome chronically maintained on oxycodone)
ED Past Surgical History: Orthopedic
Social History
Tobacco: Smoker
Alcohol: None
Drug: None
Personal: Single
Living: alone
Employment: Disabled
Family History
Family History: Other (Father with melanoma)
Review of Systems
<Otilia Yates MD, Resident - Last Filed: 07/29/25 15:03>
Review of Systems
All Other Systems: ROS reviewed and negative except as documented in HPI and ROS
Constitutional: Reports weight loss and fatigue
ABD/GI: Reports nausea and diarrhea
Psychiatric: Reports anxiety
Phy Exam
<Otilia Yates MD, Resident - Last Filed: 07/29/25 15:03>
General Physical Exam
General Presentation: moderate distress
General Skin: dry
General Habitus: cachetic
General Mental: anxious
Cardiovascular Exam
Cardiovascular Exam: regular rate/rhythm
Pulmonary Exam
Pulmonary Exam: lungs clear, no respiratory distress and no rales
Gastrointestinal Exam
Gastrointestinal Exam: non tender, soft and non distended
Psychiatric Exam
Psychiatric Exam: agitated and anxious
Course
<Otilia Yates MD, Resident - Last Filed: 07/29/25 15:03>
Orders/Labs/Results
Orders:
Orders
07/29/25 10:52
HYDROmorphone [Dilaudid] 1 mg IV NOW STA
Ondansetron Injectable [Zofran] 4 mg IV NOW STA
07/29/25 10:53
0.9% Sodium Chloride 500 ml [Nss] 500 ml IV BOLUS
07/29/25 11:31
Complete Blood Count/With Diff Urgent
Comprehensive Metabolic Panel Urgent
Lipase Urgent
07/29/25 13:31
Alprazolam [Xanax] 1 mg PO NOW STA
07/29/25 14:59
HYDROmorphone [Dilaudid] 1 mg IV NOW STA
07/29/25 15:02
Electrocardiogram (*1) Urgent
Reason for Study: QTc Monitoring
EKG- Treatment ONCE
NSS 1000mL Bolus over 1 hr 0.9% Sodium Chloride 1000 ml [Nss] 1,000 ml IV BOLUS
Abnormal Lab Results
07/29/25
11:31
RBC 2.96 L 10^6/uL
(4.70-6.10)
Hgb 9.3 L g/dL
(13.0-18.0)
Hct 26.6 L %
(39.0-52.0)
MCH 31.4 H pg
(27.0-31.0)
RDW 15.4 H %
(11.5-14.5)
Plt Count 66 L 10^3/uL
(130-400)
MPV 10.8 H fL
(7.4-10.4)
Abs Immat Gran (auto) 0.5 H 10^3/uL
(0-0.05)
Absolute Lymphs (auto) 0.9 L 10^3/uL
(1.2-3.4)
Absolute Monos (auto) 0.9 H 10^3/uL
(0.1-0.6)
Immature Gran % 6.9 H %
(0-0.5)
Lymphocytes % 14.5 L %
(20.5-51.1)
Monocytes % 14.3 H %
(1.7-9.3)
Chloride 111 H mmol/L
(98-107)
Carbon Dioxide 20 L mmol/L
(22-30)
Total Protein 6.2 L g/dl
(6.3-8.2)
07/29/25 11:31
07/29/25 11:31
Vital Signs
Initial and Last Documented VS:
Initial Vital Signs
Temp Pulse Resp BP Pulse Ox
36.6 C 82 18 117/70 98
07/29/25 09:24 07/29/25 09:24 07/29/25 09:24 07/29/25 09:24 07/29/25 09:24
Last Documented Vital Signs
Temp Pulse Resp BP Pulse Ox
36.9 C 65 20 120/74 99
07/29/25 11:50 07/29/25 13:41 07/29/25 13:41 07/29/25 13:41 07/29/25 13:41
<Carlitos Jansen MD - Last Filed: 07/29/25 15:07>
Orders/Labs/Results
Orders:
Orders
07/29/25 10:52
HYDROmorphone [Dilaudid] 1 mg IV NOW STA
Ondansetron Injectable [Zofran] 4 mg IV NOW STA
07/29/25 10:53
0.9% Sodium Chloride 500 ml [Nss] 500 ml IV BOLUS
07/29/25 11:31
Complete Blood Count/With Diff Urgent
Comprehensive Metabolic Panel Urgent
Lipase Urgent
07/29/25 13:31
Alprazolam [Xanax] 1 mg PO NOW STA
07/29/25 14:59
HYDROmorphone [Dilaudid] 1 mg IV NOW STA
07/29/25 15:02
Electrocardiogram (*1) Urgent
Reason for Study: QTc Monitoring
EKG- Treatment ONCE
NSS 1000mL Bolus over 1 hr 0.9% Sodium Chloride 1000 ml [Nss] 1,000 ml IV BOLUS
Abnormal Lab Results
07/29/25
11:31
RBC 2.96 L 10^6/uL
(4.70-6.10)
Hgb 9.3 L g/dL
(13.0-18.0)
Hct 26.6 L %
(39.0-52.0)
MCH 31.4 H pg
(27.0-31.0)
RDW 15.4 H %
(11.5-14.5)
Plt Count 66 L 10^3/uL
(130-400)
MPV 10.8 H fL
(7.4-10.4)
Abs Immat Gran (auto) 0.5 H 10^3/uL
(0-0.05)
Absolute Lymphs (auto) 0.9 L 10^3/uL
(1.2-3.4)
Absolute Monos (auto) 0.9 H 10^3/uL
(0.1-0.6)
Immature Gran % 6.9 H %
(0-0.5)
Lymphocytes % 14.5 L %
(20.5-51.1)
Monocytes % 14.3 H %
(1.7-9.3)
Chloride 111 H mmol/L
(98-107)
Carbon Dioxide 20 L mmol/L
(22-30)
Total Protein 6.2 L g/dl
(6.3-8.2)
07/29/25 11:31
07/29/25 11:31
Vital Signs
Initial and Last Documented VS:
Initial Vital Signs
Temp Pulse Resp BP Pulse Ox
36.6 C 82 18 117/70 98
07/29/25 09:24 07/29/25 09:24 07/29/25 09:24 07/29/25 09:24 07/29/25 09:24
Last Documented Vital Signs
Temp Pulse Resp BP Pulse Ox
36.9 C 65 20 120/74 99
07/29/25 11:50 07/29/25 13:41 07/29/25 13:41 07/29/25 13:41 07/29/25 13:41
<Otilia Yates MD, Resident - Last Filed: 07/29/25 15:03>
MDM/Problems Addressed
Differential Diagnosis Includes:
Postchemotherapy nausea
Viral gastroenteritis
Metastatic disease
MDM/Problems Addressed:
Mr. Mcconnell is a 64-year-old male with recent diagnosis of stage IV lung cancer with last chemotherapy on 07/20 (follows with Dr. Duran), constipation secondary to chronic opioid use for pain control, anxiety on Xanax, COPD, GERD who presents via EMS
with nausea and abdominal pain.
#Nausea
#Abdominal pain, acute on chronic
He has not had any of his medications today. His last chemotherapy with Dr. Duran was on 07/20, 9 days ago. He complains of 9/10 abdominal pain.
- IV Dilaudid 1 mg
--Okay to give his home Xanax 1 mg 2 hours after Dilaudid as patient is very anxious in general and adamant about getting this dose
- IV Zofran 4 mg
- 500 cc NSS bolus
- CBC, CMP, lipase unremarkable
Despite our best efforts, his pain and other symptoms are poorly controlled at home, and he is likely to bounce back. We will be admitting him to the hospitalist team for symptom and pain management that he will be able to maintain outpatient.
<Otilia Yates MD, Resident - Last Filed: 07/29/25 15:03>
*Pulse Oximetry
SaO2: 98
Oxygen Mode of Delivery: Room air
Patient hypoxic: no
*Critical Care Note
Total Time (30-74mins, 75-104mins- exclusive of procedures): Not Applicable
ED Attending Note
<Otilia Yates MD, Resident - Last Filed: 07/29/25 15:03>
-
Portions of this chart may have been created with voice recognition software.� Occasional wrong word or��sound alike� substitutions may have occurred due to the inherent limitations of voice recognition software.
<Carlitos Jansen MD - Last Filed: 07/29/25 15:07>
ED Attending Note
Patient seen and examined by attending physician: Yes
I performed a history and physical exam of patient and discussed management with resident, I reviewed resident's note and agree with documented findings and plan of care.: Yes
ED Attending Note:
I have seen and evaluated the patient with a [id number] encounter. I have spoken to the resident and involved in the medical history, the physical exam, medical decision making.
Evaluation and management service: agree unless noted differently below.
Results interpretation: agree unless noted differently below.
Focused HPI: 64-year-old male with extensive history as documented notable for stage IV lung cancer on chemotherapy presents to the ER for evaluation of nausea and vomiting. Patient is a rambling historian and difficult to refocus. Patient received
chemotherapy 07/20. He says that he has been on chronic opiates (oxycodone), as needed Zofran in addition to gabapentin. He had admissions earlier this summer for nausea and vomiting he attributes to bad reaction to 'anti-inflammatories'
specifically meloxicam. He says that nausea has not been too bad since discontinuing meloxicam early in the summer. Recently though has had significant constipation and abdominal discomfort related to this. Was seen in the ER last week and was
started on additional medications for Colace in addition to MiraLAX and discharged home. He says that he has been having loose stools now. He feels his chronic pain is poorly controlled with home oxycodone. Has been having nausea and vomiting.
Home Zofran not working. Came to the ER.
Physical exam: Awake and alert. Rambling speech. Chronically ill-appearing. Vital signs normal. Somewhat cachectic. Abdomen nondistended nontender.
Medical Decision Makin-year-old male presents with poorly controlled chronic pain and nausea and vomiting; recently constipated and seen in the ER as above. Nonobstructive abdominal x-ray at that point in time. He had large bowel movement
today here in the ER. Labs were sent off today including CBC which shows chronic anemia. CMP shows mild metabolic acidosis likely from GI losses. Lipase and LFTs are normal. He was given fluids and medication for pain and nausea and his symptoms
were better controlled but he feels his home regimen is not adequately controlling his symptoms and does not feel comfortable with discharge at this point in time. Will admit for symptom control and serial exams, fluids. Discussed with hospitalist.
Discharge Plan
Departure
Patient Disposition: Admit
Date of Disposition: 07/29/25
Time of Disposition: 15:00
Admit to: Med/Surg
Admit to doctor: Htay
Presentation/result/management discussed w/ accepting MD/DO: Hospitalist
Condition: Fair
Discharge Problem:
Intractable nausea and vomiting, Abdominal pain, Intractable abdominal pain, Stage IV lung cancer, Nausea & vomiting
Prescriptions:
No Action
alprazolam 1 MG tablet
1 mg PO TID
gabapentin 300 mg Capsule
300 mg PO DAILY
polyethylene glycol 3350 17 gram Powder In Packet
17 g PO DAILYPRN PRN (Reason: constipation) Qty: 100 0RF
sennosides-docusate sodium 8.6-50 mg Tablet
1 tab PO BIDPRN PRN (Reason: constipation) Qty: 60 0RF
ondansetron 8 mg Tablet,Disintegrating
8 mg PO [id number] PRN (Reason: nausea)
oxycodone-acetaminophen 5-325 mg Tablet
1 tab PO BID
Patient Comments:
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
famotidine [Pepcid] 20 mg Tablet
20 mg PO DAILY
folic acid 1 mg Tablet
1 mg PO DAILY
alprazolam [Xanax] 1 mg Tablet
1 mg PO DAILYPRN PRN (Reason: anxiety)
midodrine 2.5 mg tablet
2.5 mg PO TID Qty: 90 0RF
docusate sodium [Colace] 100 mg capsule
100 mg PO DAILY Qty: 20 0RF
Referrals:
UNKNOWN - PT DOES,NOT KNOW [Family Provider]
Interventions
Interventions:
*Risk Screen - Suicide Last Done: 07/29/25 09:24
*General Assessment Last Done: 07/29/25 11:50
*Neglect/Abuse Screening Last Done: 07/29/25 09:24
*ED- Fall Risk Assessment Last Done: 07/29/25 11:50
*ED COVID-19 Vaccine History Last Done: 07/29/25 11:50
Discharge Date and Time
Print Language: GUYANESE
--- NOTE | 2025-07-29 10:45 | EDRN ---
the pt was brought back to ED bed #9, the PCT that brought the pt back approached this RN at the nurses station and stated, 'You need to go in there and speak to him he is very upset and wants water immediately', this RN entered the pts room and
before this RN could speak and introduce this RN's self the pt stated, 'I need wanter and EMS was horrible and i need to be seen by a doctor now', this RN apologized for the pts frustrations and apologized for the pts wait and this RN explained that
this RN would have a provider see the pt however this RN asked the pt if it was alright if the pt held off on water for now until the pt speaks to a provider and the pt rolled his eyes at this RN and turned away from this RN, this RN attempted to
speak to the pt and the pt refused to speak to this RN, this RN notified the charge nurse and Vielka Tena the real estate leasing manager who went into the pts room to speak with the pt
--- NOTE | 2025-07-29 11:14 | EDRN ---
the pt has a SW port, this RN reached out to Vascular access team who will be down to access the pts port
[2025-07-29] MEDS: ZOFRAN 4 MG IV (11:38)
[2025-07-29] MEDS: NSS 500 IV (11:38)
[2025-07-29] MEDS: DILAUDID 1 MG IV ×2 (11:38→16:46)
--- NOTE | 2025-07-29 11:39 | EDRN ---
when the inventory specialist manager was finished speaking with the pt this RN entered the pts room and asked if it was alright if this RN cared for the pt and if this RN could do anything to make the pts stay more pleasant, the pt started to cry and stated, 'I am
sorry for earlier i am under alot of stress and there is a lot going on right now, i am worried about my cancer, i miss my parents, and i live alone', this RN spoke with the pt for a few minutes and the pt was able to calm down and stated that he is
okay with this RN taking care of him, this RN explained the medications that the provider ordered for him, medications were administered via the [facility] SQ Port that was accessed by vascular access team, the pt is resting in stretcher in the lowest
position, side rails up x2, call escamilla within reach, HOB elevated, will continue to monitor the pt closely
[2025-07-29 12:08] LABS: ALT (SGPT) 23 U/L (0-50); AST (SGOT) 19 U/L (17-59); Albumin 4.1 g/dl (3.5-5.0); Alkaline Phosphatase 122 U/L (38-126); Blood Urea Nitrogen 11 mg/dl (9-20); Calcium 9.6 mg/dl (8.4-10.2); Carbon Dioxide 20 mmol/L (22-30); Chloride 111 mmol/L (98-107); Estimated Creatinine Clearance 77 ml/min; Glucose 89 mg/dl (70-99); Lipase 50 U/L (23-300); Potassium 4.0 mmol/L (3.5-5.1); Sodium 139 mmol/L (135-145); Total Protein 6.2 g/dl (6.3-8.2); eGFR > 60.00
[2025-07-29 12:43] LABS: Hematocrit 26.6 % (39.0-52.0); Hemoglobin 9.3 g/dL (13.0-18.0); Mean Corp Hgb Conc. 35.0 g/dL (33.0-37.0); Mean Corpuscular Volume 89.9 fL (80.0-94.0); Red Cell Dist. Width 15.4 % (11.5-14.5)
[2025-07-29 13:13] LABS: Platelet Count 66 10^3/uL (130-400)
[2025-07-29 13:14] LABS: Nucleated Red Blood Cells % 0 % (-)
[2025-07-29] MEDS: XANAX 1 MG PO ×2 (13:51→21:33)
--- NOTE | 2025-07-29 15:04 | HPS.HSE ---
Family Physician
-
Family Physician: NOT KNOW UNKNOWN - PT DOES
Chief Complaint
-
N/V and abdominal pain and loose BMs
History of Present Illness
HPI
64M current smoker, HX Lung adenoc CA stage IV on first round of chemo 04/17/25, last chemo on 07/20/25 on chronic narcotic depedent CA pain, anxiety on Xanax, HX spontaneous PTX , HX COPD sen at ER
- BiB via EMS with nausea and abdominal pain. - he has been having nausea for the last couple of days
- last chemo on 07/20/25
- took Zofran at home without relief.
- complains of abdominal pain and reports that he has not taken his home oxycodone nor Xanax for anxiety. H
- he was seen in the ED on 07/25 for SI in 07/24 for chronic constipation, which she reports he finally surpassed with the help of suppository and manual disimpaction plus Colace and magnesium citrate.
- now reports having brown watery diarrhea that is 'messy' and difficult for him to manage.
ROS:
- denies fever/chills, vomiting, trauma, and recent changes diet.
Medical History
Past Medical History
Past Medical History: Reports Other
Past Surgical History: Reports None and Other
Social History
Tobacco: Smoker (1 pack a day x 50 years)
Alcohol: None
Drug: None
Personal: Single
Living: Alone
Employment: Disabled
Family History
Family History: Not pertinent and Other (Father obstructive gallstone history of pacemaker, A-fib, CHF age 88, mother lung cancer unsure type)
Allergies / Home Medications
Allergies reflects when Allergies were last updated in [facility].
Home Medications with original date entered in [facility]
Allergy/Medication List:
Allergies
Allergy/AdvReac Type Severity Reaction Status Date / Time
diclofenac Allergy Nausea / Verified 04/21/25 17:16
Vomiting
antiinflammatories AdvReac Nausea / Uncoded 04/21/25 17:16
Vomiting
Home Medications
alprazolam 1 mg tablet 1 mg PO TID anxiety 06/24/21
ibuprofen 200 mg tablet 200 mg PO Q6H PRN pain 03/16/25
oxycodone-acetaminophen 5 mg-325 mg tablet (Percocet) 1 tab PO TID PRN Pain #10 tabs 04/03/25
famotidine 10 mg tablet 10 mg PO DAILY 04/14/25
gabapentin 300 mg capsule 300 mg PO DAILY 04/14/25
meloxicam 15 mg tablet 15 mg PO DAILY 04/14/25
Review of Systems
-
Constitutional: Reports See HPI and Other (uncontrolled cancer pain )
EENT: Reports No Symptoms
Respiratory: Reports No Symptoms
Cardiac: Reports No Symptoms
Abdomen/GI: Reports No Symptoms
: Reports No Symptoms
Musculoskeletal: Reports No Symptoms
Skin: Reports No Symptoms
Neurological: Reports No Symptoms
Endocrine: Reports No Symptoms
Hematologic/Lymphatic: Reports No Symptoms
Psych: Reports No Symptoms
Physical Exam
Vital Signs
Vital Signs
Temp Pulse Resp BP Pulse Ox
98.5 F 65 20 120/74 99
07/29/25 11:50 07/29/25 13:41 07/29/25 13:41 07/29/25 13:41 07/29/25 13:41
Physical Exam
General: Other (looks tired , unkempt )
HEENT: NormoCephalic, Atraumatic and Other (dry oral mucosa )
Respiratory: Clear
Cardiac: S1/S2 and Regular Rhythm; No Murmur or Rub
GI: Soft, Non Tender, Non Distended and Normal Bowel Sounds; No Organomegaly
Rectal: Deferred by Provider
Musculoskeletal: No Clubbing, No Cyanosis and No Edema
Skin: No Rash
Neuro: Awake, Alert, Oriented and Nonfocal/grossly intact
Psych: Other (flat affect but cooporative )
Laboratory Results
-
07/29/25 11:31
07/29/25 11:31
Laboratory Results
Total Bilirubin 0.4 mg/dl (0.2-1.3) 07/29/25 11:31
AST 19 U/L (17-59) 07/29/25 11:31
ALT 23 U/L (0-50) 07/29/25 11:31
Alkaline Phosphatase 122 U/L (38-126) 07/29/25 11:31
Lipase 50 U/L (23-300) 07/29/25 11:31
Data Reviewed
-
Diagnostic Radiology: Report Reviewed by me
Lab Data: Labs Reviewed by me
Old Records: Reviewed
Impression/Plan
-
Vital Signs
Temp Pulse Resp BP Pulse Ox
98.5 F 65 20 120/74 99
07/29/25 11:50 07/29/25 13:41 07/29/25 13:41 07/29/25 13:41 07/29/25 13:41
Abnormal Lab Results
07/29/25
11:31
RBC 2.96 L
Hgb 9.3 L
Hct 26.6 L
MCH 31.4 H
RDW 15.4 H
Plt Count 66 L
MPV 10.8 H
Abs Immat Gran (auto) 0.5 H
Absolute Lymphs (auto) 0.9 L
Absolute Monos (auto) 0.9 H
Immature Gran % 6.9 H
Lymphocytes % 14.5 L
Monocytes % 14.3 H
Chloride 111 H
Carbon Dioxide 20 L
Total Protein 6.2 L
AXR
Non-obstructive bowel gas pattern.
Last hospitalist admission: DATE OF ADMISSION: 05/09/2025 - DATE OF DISCHARGE: 05/10/2025
DISCHARGE DIAGNOSES:
1. Intractable nausea, vomiting, abdominal pain secondary to acute gastroenteriti
2. Anemia secondary to chemotherapy.
3.. Pulmonary adenocarcinoma with main tumor in the right middle lobeon carboplatin, Alimta,and Keytruda.
3. Right chest chemo port in place.
4. Malignant pain requiring opiate administration.
5. Mild to moderate protein calorie malnutrition with body mass index of 23.
ASSESSMENT & PLAN
Pending Rx reconciliation
N/V and abdominal radha - Hyperemesis of malignancy
- loose BMS
- Recent constipation and fecal impaction - improved with suppository + manual disimpaction + Colace and magnesium citrate.
- denied denied hematochezia
- Dehydration
- No radiographic evidence for bowel obstruction.
- No radiographic evidence for free intraperitoneal air.
- supportive care
- IV NS @100/H
- pain control and laxatives
- IV Zofran and probably oral Compazine when tolerating oral well
- full liquid diet, advance as tolerated
Malignant pain requiring opiate administration.
poorly controlled cancer pain, N/V. due to stage 4 lung CA
HX constipation suspect Opiate related
- f/u with Dr. Duran and on chemo, chronic opioids.
- IV Dilaudid PRN for severe and break thru pain
- c/w OP Pain Regime
- c/w BW regime
HX stage IV adenocarcinoma of Lung @ main tumor in the right middle lobeon carboplatin, Alimta,and Keytruda.
- Anemia of chr dz + severe thrombocytopenia secondary to chemotherapy.
- Right chest chemo port in place.
- last chemo on 07/20/25
- trend CBC
- Consult onco ( P Onco Dr Childress)
Mild to moderate protein calorie malnutrition with body mass index of 23.
DVT Px: SCD
full Code:
OBS MS
[2025-07-29] MEDS: NSS 1000 IV ×2 (16:46→19:39)
--- NOTE | 2025-07-29 17:41 | EDRN ---
this RN called the receiving unit and notified them that paper report was going to be tubed up
[2025-07-30] MEDS: DILAUDID 1 MG IV (04:19)
[2025-07-30] MEDS: ZOFRAN 4 MG IV ×2 (04:23→12:34)
[2025-07-30] MEDS: NSS 1000 IV ×2 (05:30→15:13)
[2025-07-30 07:30] VITALS: BP 113/65
[2025-07-30 08:08] LABS: Hematocrit 25.7 % (39.0-52.0); Hemoglobin 8.9 g/dL (13.0-18.0); Mean Corp Hgb Conc. 34.6 g/dL (33.0-37.0); Mean Corpuscular Volume 91.5 fL (80.0-94.0); Platelet Count 59 10^3/uL (130-400); Red Cell Dist. Width 15.2 % (11.5-14.5)
[2025-07-30] MEDS: NEURONTIN 300 MG PO (08:10)
[2025-07-30] MEDS: XANAX 1 MG PO ×3 (08:10→21:35)
[2025-07-30] MEDS: COLACE PO (08:17)
[2025-07-30 08:25] LABS: Albumin 3.8 g/dl (3.5-5.0); Chloride 112 mmol/L (98-107); Sodium 140 mmol/L (135-145)
[2025-07-30 08:26] LABS: Absolute Neutrophils -Man Diff 8.8 10^3/uL (1.4-6.5); Anisocytosis Slight; Normal RBC Morphology No; Platelets Checked Yes; Total Cells Counted 100
[2025-07-30 08:34] LABS: ALT (SGPT) 37 U/L (0-50); AST (SGOT) 30 U/L (17-59); Alkaline Phosphatase 112 U/L (38-126); Blood Urea Nitrogen 8 mg/dl (9-20); Calcium 8.9 mg/dl (8.4-10.2); Carbon Dioxide 21 mmol/L (22-30); Estimated Creatinine Clearance 73 ml/min; Glucose 87 mg/dl (70-99); Potassium 4.0 mmol/L (3.5-5.1); Total Protein 5.7 g/dl (6.3-8.2); eGFR > 60.00
--- NOTE | 2025-07-30 11:42 | W.PN.HOSP.TC ---
Addendum entered and electronically signed by Alie Philip MD 07/30/25 14:33:
Seen and examined the patient independently. Agree with the plan forth by the resident except for changes on my documentation
63-year-old with recent diagnosis of stage IV lung cancer last chemotherapy 07/20/2025 secondary to nausea and abdominal pain
X-ray of the abdomen-nonobstructive bowel gas pattern
CVS: S1-S2 normal
Chest: CTA B/L
Abdomen: Soft, NT / Bowel sounds present
Extremities: No edema
# Nausea vomiting diarrhea
Looks like diarrhea has subsided
Chronic abdominal pain
Symptomatic care
If patient continues to have abdominal pain consider imaging abdomen exam soft and nontender with no guarding today
Added PPI
# Chronic hypotension on midodrine
# Stage IV poorly differentiated adenocarcinoma of the lung on carboplatin, Alimta, Keytruda. Follows up with Dr. Ceballos
# Bicytopenia-likely secondary to chemotherapy
# COPD/emphysema
# Spontaneous pneumothorax by history
# GERD/Combs's esophagus-continue Pepcid
# Anxiety/PTSD-continue Xanax
# Smoker--nicotine patch.
# DVT prophylaxis-Lovenox
# Full code
Part of this note was created using voice recognition system. Occasional wrong word or��sound alike� substitutions may have inadvertently occurred due to the inherent limitations of voice recognition software. If noted kindly bring it to my
attention for correction.
Original Note:
Today's Communication/Plan
-
Antiemetics
Fluids
PPI
Appreciate heme-onc
Assessment / Plan
Assessment / Plan
64-year-old male with past medical history of lung adenocarcinoma stage IV last dose of chemo on 07/20/2025 on chronic narcotics for pain presented to the ED with nausea and diarrhea. Previously in the ER on 07/25 for chronic constipation for which
she had a manual disimpaction, Colace and mag citrate. Now, he has continuous diarrhea and general weakness.
Nausea, vomiting, abdominal pain -hyperemesis of malignancy
-- Abdominal x-ray revealed no evidence of bowel obstruction or free intraperitoneal air
-- Antiemetics with Zofran
-- Fluids
-- Pain control
-- PPI to assist with chemotherapy-induced gastritis
Stage IV lung adenocarcinoma on carboplatin, Alimta,and Keytruda.
--Appreciate heme-onc
--Last dose of chemo on 07/20/2025
--No signs of infection at right chest port
-- Continue home Percocet for pain
-- Continue home gabapentin and meloxicam
Anemia
Thrombocytopenia
-- Likely secondary to chemotherapy
-- Transfuse for hemoglobin less than 7
-- Transfuse for platelets less than 10 unless active bleed then less than 50
-- Appreciate heme-onc
Tobacco abuse
-- Nicotine patch
-- Advised smoking cessation
Anxiety
-- Continue home alprazolam
Full code
DVT lovenox
Anticipated Discharge: Within 24 hours
Subjective/Interval History
-
Date of Service: July 30, 2025
Denies any cough, sore throat, dysuria, skin infections. He does have ongoing nausea and diarrhea per his original admission complaint. He does endorse occasionally getting a runny nose however this is his baseline. Overall feels anxious and
scared about the future.
Objective Data
-
Labs:
Laboratory Results
07/30/25
07:46
WBC 12.5 H
Hgb 8.9 L
Hct 25.7 L
Plt Count 59 L
Sodium 140
Potassium 4.0
Chloride 112 H
Carbon Dioxide 21 L
BUN 8 L
Creatinine 0.8
Glucose 87
Calcium 8.9
Total Bilirubin 0.3
AST 30
ALT 37
Alkaline Phosphatase 112
Vital Signs:
Vital Signs
Temp Pulse Resp BP Pulse Ox
98.0 F 58 18 113/65 99
07/30/25 07:30 07/30/25 07:30 07/30/25 07:30 07/30/25 07:30 07/30/25 07:30
I&O
07/29/25 07/30/25 07/31/25
06:59 06:59 06:59
Intake Total 240 / 240
Balance 240 / 240
Review of Systems
-
History Source: Patient
EENT: Reports No Symptoms Reported
Respiratory: Reports No Symptoms
Cardiac: Reports No Symptoms
Abdomen/GI: Reports Nausea, Vomiting and Diarrhea
Genitourinary: Reports No Symptoms
Skin: Reports No Symptoms
Neuro: Reports No Symptoms
Physical Exam
-
General: Appears Chronically Ill
Respiratory: Clear to Auscultation
Cardiac: Regular Rhythm and S1/S2
GI: Soft, Nontender, Nondistended, Normal Bowel Sounds and Other (no suprapubic tenderness)
Musculoskeletal: No Cyanosis and No Edema
Skin: Warm and Dry
Neuro: AO x 3
Psych: Anxious
[2025-07-30] MEDS: PROTONIX 40 MG PO (11:52)
[2025-07-30] MEDS: PERCOCET 5/325 1 TABLET PO ×3 (12:40→22:37)
[2025-07-30 15:32] VITALS: BP 136/79
--- NOTE | 2025-07-30 16:25 | CM ---
Pt alert awake oriented. He lives alone in a 1 story home with 1 step to enter.He said he does not drive he uses [employer] . He said he is independent in ADLs. He is a [facility] cancer patient every 3 weeks last treatment 07/20/25. He has been in contact
with SW at [facility].He has a weekly appt with Josias at [facility].He has a sister that helps him sometime.Offered VN he is not sure.
No Adaptive Devices
[facility] hx , No SNF hx.
pharmacy [facility]
PCP DR Zulma Rahman
PLAN Home with possible VN if he accepts VN
[2025-07-30] MEDS: LOVENOX 40 MG SC (16:57)
--- NOTE | 2025-07-30 18:36 | CON.ONC ---
Consultation
-
Date Consultation Requested: 07/29/25
Date Consultation Performed: 07/30/25
Requesting Provider: Dr. Urbina
Performing Provider: Dr. Vela
Reason for Consultation: lung cancer
Impression
Impression
stage IV NSCLC - adenocarcinoma
nausea/ vomiting
diarrhea
abdominal pain
Plan
Plan
1. Abdominal pain/ N/V and diarrhea -
-abd Xray w/o obsructive pattern
-consider CT imaging - GI evaluation?
-IVF
2. stage IV NSCLC - adenocarinoma
-s/p 3 cycles carbo/alimta/ keytruda w/ neulasta
-follow CBC
-supportive care
Will continue to follow with you
Patient History
History of Present Illness
64y/o male seen in oncology consultation today regarding stage IV lung cancer, adenocarcinoma subtype.
The patient presents to the [facility] ER w/ nausea, vomiting and abdominal pain along w/ loose stools, following a period of significant constipation.
He is feeling slightly better today. Still w/ some intermittent abdominal pain. Still has some nausea. No fevers or chills.
Past-Medical/Surgical History
PMH:
Stage IV NSCLC - adenocarcinoma - cabo/alimta/ keytruda - w/ neulasta
anxiety
GERD
Spontaneous pneumothorax
chronic pain syndrome
Social History
Tobacco: Smoker
Alcohol: None
Family History
Family History: Other (Father with melanoma)
Allergies: diclofenac
Patient Medication
�Medication �Instructions �Recorded �Confirmed �Last Taken �Type
alprazolam 1 mg tablet 1 mg PO TID anxiety 06/24/21 05/09/25 05/08/25 History
gabapentin 300 mg capsule 300 mg PO DAILY Pain 04/14/25 05/09/25 07/28/25 History
polyethylene glycol 3350 17 gram 17 g PO DAILYPRN PRN constipation 04/23/25 05/09/25 Unknown Rx
oral powder packet #100 ea
sennosides 8.6 mg-docusate sodium 1 tab PO BIDPRN PRN constipation 04/23/25 05/09/25 Unknown Rx
50 mg tablet #60 tabs
alprazolam 1 mg tablet (Xanax) 1 mg PO QIDPRN PRN anxiety 04/27/25 07/30/25 07/28/25 History
famotidine 20 mg tablet (Pepcid) 20 mg PO DAILY Gastrointestinal 04/27/25 05/09/25 07/28/25 History
Issue
folic acid 1 mg tablet 1 mg PO DAILY Supplement 04/27/25 05/09/25 07/28/25 History
ondansetron 8 mg disintegrating 8 mg PO [id number] PRN nausea 04/27/25 05/09/25 07/28/25 History
tablet
oxycodone-acetaminophen 5 mg-325 1 tab PO TIDPRN PRN pain 04/27/25 07/30/25 07/28/25 History
mg tablet
midodrine 2.5 mg tablet 2.5 mg PO TID #90 tabs 05/01/25 05/09/25 07/28/25 Rx
docusate sodium 100 mg capsule 100 mg PO DAILY #20 caps 07/24/25 Unknown Rx
(Colace)
naloxone PRN Opiate overdose 07/30/25 Unknown History
Active Medications
Generic Name Dose Route Start Last Admin
Trade Name Freq PRN Reason Stop Dose Admin
Alprazolam 1 mg 07/29/25 22:00 07/30/25 15:13
Alprazolam 1 Mg Tablet PO 08/26/25 21:59 1 mg
TID KRYS Administration
Bisacodyl 10 mg 07/29/25 18:43
Bisacodyl 10 Mg Rectal Suppository RECTAL 08/26/25 18:42
[id number] PRN
constipation
Diazepam 2.5 mg 07/29/25 18:52
Diazepam 10 Mg/2 Ml Inj IV 08/26/25 18:51
Q8HPRN PRN
anxiety
Docusate Sodium 100 mg 07/30/25 08:00 07/30/25 08:17
Docusate Sodium 100 Mg Capsule PO 08/27/25 07:59 Not Given
DAILY KRYS
Enoxaparin Sodium 40 mg 07/30/25 18:00 07/30/25 16:57
Enoxaparin Sodium 40 Mg/0.4 Ml Syringe SC 08/27/25 17:59 40 mg
QPM KRYS Administration
Gabapentin 300 mg 07/30/25 08:00 07/30/25 08:10
Gabapentin 300 Mg Capsule PO 08/27/25 07:59 300 mg
DAILY KRYS Administration
Heparin Sodium (Porcine) 500 unit 07/30/25 08:30
Heparin Flush Pf (100 Unit/Ml) 5 Ml Syringe IV 08/27/25 08:29
PER PROTOCOL KRYS
Sodium Chloride 1,000 mls @ 100 mls/hr 07/29/25 18:43 07/30/25 15:13
Nss IV 1,000 mls
.Q10H KRYS Administration
Nicotine 14 mg 07/30/25 08:00 07/30/25 08:15
Nicotine 14 Mg Patch TRANSDERM 08/27/25 07:59 Not Given
DAILY KRYS
Ondansetron HCl 4 mg 07/29/25 18:43 07/30/25 12:34
Ondansetron 4 Mg/2 Ml Vial IV 08/26/25 18:42 4 mg
Q6HPRN PRN Administration
nausea and vomiting
Oxycodone/Acetaminophen 1 tablet 07/30/25 12:35 07/30/25 16:57
Oxycodone 5 Mg/Apap 325 Mg (Percocet) PO 08/13/25 12:34 1 tablet
TID KRYS Administration
Pantoprazole Sodium 40 mg 07/30/25 09:00 07/30/25 11:52
Pantoprazole 40 Mg Delayed Release Tablet PO 08/27/25 08:59 40 mg
DAILY KRYS Administration
Polyethylene Glycol 17 grams 07/29/25 18:43
Polyethylene Glycol Powder 17 Grams Packet PO 08/26/25 18:42
DAILYPRN PRN
constipation
Senna/Docusate Sodium 1 tablet 07/29/25 18:43
Docusate W/Senna (Vanessa-Colace) Tablet PO 08/26/25 18:42
BIDPRN PRN
constipation
Sodium Chloride 0 flush 07/29/25 19:00
Sodium Chloride 0.9% (Flush) Syringe IV 08/26/25 18:59
PER PROTOCOL KRYS
Review of Systems
-
A ROS was performed w/ pertinent findings as per HPI.
Physical Exam
-
General: Well Developed and No Apparent Distress
HEENT: Negative Jaundice
Cardiology: Normal Sinus Rhythm
Pulmonary: Clear
Extremities: Negative Edema
Neurology: Non Focal
Labs
Lab Results
WBC 12.5 10^3/uL (4.8-10.8) H 07/30/25 07:46
RBC 2.81 10^6/uL (4.70-6.10) L 07/30/25 07:46
Hgb 8.9 g/dL (13.0-18.0) L 07/30/25 07:46
Hct 25.7 % (39.0-52.0) L 07/30/25 07:46
MCV 91.5 fL (80.0-94.0) 07/30/25 07:46
MCH 31.7 pg (27.0-31.0) H 07/30/25 07:46
MCHC 34.6 g/dL (33.0-37.0) 07/30/25 07:46
RDW 15.2 % (11.5-14.5) H 07/30/25 07:46
Plt Count 59 10^3/uL (130-400) L 07/30/25 07:46
MPV 11.4 fL (7.4-10.4) H 07/30/25 07:46
Abs Immat Gran (auto) 0.5 10^3/uL (0-0.05) H 07/29/25 11:31
Absolute Neuts (auto) 4.1 10^3/uL (1.4-6.5) 07/29/25 11:31
Absolute Lymphs (auto) 0.9 10^3/uL (1.2-3.4) L 07/29/25 11:31
Absolute Monos (auto) 0.9 10^3/uL (0.1-0.6) H 07/29/25 11:31
Absolute Eos (auto) 0.0 10^3/uL (0-0.7) 07/29/25 11:31
Absolute Basos (auto) 0.0 10^3/uL (0-0.2) 07/29/25 11:31
Immature Gran % 6.9 % (0-0.5) H 07/29/25 11:31
Neutrophils % 63.3 % (42.2-75.2) 07/29/25 11:31
Lymphocytes % 14.5 % (20.5-51.1) L 07/29/25 11:31
Monocytes % 14.3 % (1.7-9.3) H 07/29/25 11:31
Eosinophils % 0.5 % (0-6) 07/29/25 11:31
Basophils % 0.5 % (0-2) 07/29/25 11:31
Creatinine 0.8 mg/dL (0.7-1.3) 07/30/25 07:46
Vital Signs
Vital Signs
Temp Pulse Resp BP Pulse Ox
97.4 F 74 15 136/79 98
07/30/25 15:32 07/30/25 15:32 07/30/25 15:32 07/30/25 15:32 07/30/25 15:32
[2025-07-30 23:00] VITALS: BP 110/66
[2025-07-31] MEDS: NSS 1000 IV (01:23)
[2025-07-31 05:43] LABS: Hematocrit 25.4 % (39.0-52.0); Hemoglobin 8.7 g/dL (13.0-18.0); Mean Corp Hgb Conc. 34.3 g/dL (33.0-37.0); Mean Corpuscular Volume 90.7 fL (80.0-94.0); Platelet Count 61 10^3/uL (130-400); Red Cell Dist. Width 15.5 % (11.5-14.5)
--- NOTE | 2025-07-31 05:51 | W.PN.UPDATE ---
Update Note
Progress Note Update
Patient anxious, RN requesting more Xanax. Last dose at 2130. stable VS 120/70 HR 54 96% RA will order Xanax 0.5mg POx1.
[2025-07-31] MEDS: XANAX 0.5 MG PO (06:01)
[2025-07-31] MEDS: ZOFRAN 4 MG IV (06:07)
[2025-07-31 06:18] LABS: Blood Urea Nitrogen 5 mg/dl (9-20); Calcium 8.5 mg/dl (8.4-10.2); Carbon Dioxide 24 mmol/L (22-30); Chloride 114 mmol/L (98-107); Estimated Creatinine Clearance 59 ml/min; Glucose 85 mg/dl (70-99); Potassium 3.8 mmol/L (3.5-5.1); Sodium 141 mmol/L (135-145); eGFR > 60.00
--- NOTE | 2025-07-31 06:21 | PTCARENOTE ---
Pt anxious. RN stated that his next dose of xanax is for 0800. Pt stated he is supposed to get the Xanax 1mg QID PRN. RN explained that it is not ordered that way but I can reach out to the [employer] MANAGER. Pt started to get angry and stated 'what happened to
you saying I can call you for anything'. RN educated pt on current orders. [employer] MANAGER notified about anxiety and home med list xanax. One time dose of Xanax 0.5mg ordered and given (see MAR). [employer]ORY MANAGER stated to pass med order clarification to dayshift. Will
pass on. plan of care ongoing.
[2025-07-31 07:13] VITALS: BP 119/72
[2025-07-31] MEDS: PERCOCET 5/325 1 TABLET PO (08:00)
[2025-07-31] MEDS: NEURONTIN 300 MG PO (08:00)
[2025-07-31] MEDS: PROTONIX 40 MG PO (08:00)
[2025-07-31] MEDS: COLACE 100 MG PO (08:00)
--- NOTE | 2025-07-31 08:24 | W.PN.HOSP.TC ---
Today's Communication/Plan
-
Clinically improving and stable for discharge
Assessment / Plan
Assessment / Plan
64-year-old male with past medical history of lung adenocarcinoma stage IV last dose of chemo on 07/20/2025 on chronic narcotics for pain presented to the ED with nausea and diarrhea. Previously in the ER on 07/25 for chronic constipation for which
she had a manual disimpaction, Colace and mag citrate. Now, he has continuous diarrhea and general weakness.
Nausea, vomiting, abdominal pain -hyperemesis of malignancy
-- Abdominal x-ray revealed no evidence of bowel obstruction or free intraperitoneal air
-- Antiemetics with Zofran
-- Fluids
-- Pain control
-- PPI to assist with chemotherapy-induced gastritis
-- Okay to discharge today with Zofran as clinically improving
Stage IV lung adenocarcinoma on carboplatin, Alimta,and Keytruda.
--Appreciate heme-onc
--Last dose of chemo on 07/20/2025
--No signs of infection at right chest port
-- Continue home Percocet for pain
-- Continue home gabapentin and meloxicam
-- WBC count increasing likely secondary to Neulasta dose after his last chemo treatment as patient remains afebrile, and without any other new complaints
Anemia
Thrombocytopenia
-- Likely secondary to chemotherapy
-- Transfuse for hemoglobin less than 7
-- Transfuse for platelets less than 10 unless active bleed then less than 50
-- Appreciate heme-onc
Tobacco abuse
-- Nicotine patch
-- Advised smoking cessation
Anxiety
-- Continue home alprazolam
Full code
DVT lovenox
Anticipated Discharge: Today
Subjective/Interval History
-
Date of Service: July 31, 2025
Amount of diarrhea is decreasing and nausea is decreasing. Clinically improving. Able to walk around without a problem however concerned about being at home. Anxious and required an additional 0.5 of Xanax last night.
Objective Data
-
Labs:
Laboratory Results
07/31/25
05:30
WBC 21.0 H
Hgb 8.7 L
Hct 25.4 L
Plt Count 61 L
Sodium 141
Potassium 3.8
Chloride 114 H
Carbon Dioxide 24
BUN 5 L
Creatinine 1.0
Glucose 85
Calcium 8.5
Vital Signs:
Vital Signs
Temp Pulse Resp BP Pulse Ox
97.6 F 56 16 119/72 97
07/31/25 07:13 07/31/25 07:13 07/31/25 07:13 07/31/25 07:13 07/31/25 07:13
I&O
07/30/25 07/31/25 08/01/25
06:59 06:59 06:59
Intake Total 240 / 240 2520 / 2520
Balance 240 / 240 2520 / 2520
Review of Systems
-
History Source: Patient
Respiratory: Reports No Symptoms
Cardiac: Reports No Symptoms
Abdomen/GI: Reports Nausea and Diarrhea
Genitourinary: Reports No Symptoms
Neuro: Reports No Symptoms
Physical Exam
-
General: Appears Chronically Ill
Respiratory: Clear to Auscultation
Cardiac: Regular Rhythm and S1/S2
GI: Soft, Nontender, Nondistended and Normal Bowel Sounds
Musculoskeletal: No Cyanosis and No Edema
Neuro: AO x 3
Psych: Calm
[2025-07-31] MEDS: XANAX 1 MG PO (09:27)
--- NOTE | 2025-07-31 09:33 | W.PN.UPDATE ---
Addendum entered and electronically signed by Eliud Unger MD 08/02/25 12:58:
Severe Protein Calorie Malnutrition
Original Note:
Update Note
Progress Note Update
I saw and evaluated the patient. I reviewed the resident�s note and agree with findings and plan as documented in the resident�s note.
Patient with multiple complaints that are not medically related including problems with his bed and problems at home. States his stools are more solid. Did have some nausea this morning. Does not report abdominal pain at this moment.
Gen: NAD, AAOx3, appears chronically ill.
Eyes: EOMI, PERRLA, no scleral icterus.
Neck: supple.
CV: RRR, +S1/S2, no m/r/g.
Resp: CTAB, no rales, wheezes, or rhonchi.
Abd: +BS, soft, NT, ND
Skin: No rashes.
Neuro: CN 2-12 intact, non-focal.
Psych: Normal mood and affect.
N/V/Abd pain:
-hyperemesis of malignancy
-underlying chronic abd pain
-with diarrhea which has improved, now with solid stools
-s/p IVFs
-medically cleared for d/c on bowel regimen and antiemetics
Leukocytosis:
-afebrile, no evidence of infection
-likely due to Neulasta
Other problems:
Chronic hypotension: cont midodrine
Stage IV NSCLC: on carboplatin/Alimta/Keytruda
Movement thrombocytopenia likely due to chemotherapy
COPD, not in acute exac
h/o spontaneous PTX
GERD with Combs's esophagus: cont PPI
Anxiety/PTSD: cont Xanax/Valium PRN
Tobacco abuse disorder: cont nicotine patch
FULL/Lovenox
Total time spent on d/c = 31 min. This included today's physical exam, progress note, review of laboratory and diagnostic data, preparation of discharge documents and prescriptions, and discussions about the pt's hospital course and discharge plan
with the patient and other program medical director involved in the patient's care.
[2025-07-31 10:25] VITALS: BP 123/74; PULSE 75
--- NOTE | 2025-07-31 10:47 | W.DCSUMMARY ---
Discharge Summary
Discharge Data
Date of Admission: 07/29/25
Date of Discharge: 07/31/25
-
Pending Results: No
Hospital Course
Primary diagnosis:
Hyperemesis malignancy
Diarrhea
Chronic hypotension on midodrine
Stage IV poorly differentiated adenocarcinoma of the lung
Anemia/thrombocytopenia secondary to chemo
Secondary diagnosis:
GERD
Anxiety
Smoker
64-year-old male presented to the ED with nausea, vomiting and diarrhea. He was previously seen in the ED on 07/24 for chronic constipation which he finally surpassed with the help with suppository, manual disimpaction, Colace and mag citrate. He
returned to the ED on 07/29/2025 for ongoing nausea vomiting and diarrhea. Ab x-ray revealed no evidence of obstrution. He was placed on fluids, antiemetics and pain control with the addition of pantoprazole 40. Over the course of his stay, his
clinical symptoms started to improve. Hematology oncology saw him and agreed with the following plan. His white cell count did increase but he remained afebrile with no signs of infection thus believe it is due to his Neulasta.
Today, patient is clinically stable for discharge with Zofran and pantoprazole. Please take colace regularly with your pain medication to prevent constipation in the future.
Abdominal x-ray 07/24/2025:
FINDINGS:
There is a nonobstructive bowel gas pattern. No abnormal calcifications.
No gross osseous abnormalities.
IMPRESSION:
Non-obstructive bowel gas pattern.
Discharge Plan
-
Patient Disposition: Home (Routine Discharge)
Discharge Diagnosis/Procedures: hyperemesis to malignancy
Stage IV adenocarcinoma
Anemia
Thrombocytopenia
Tobacco abuse
Anxiety
Condition: Fair
Diet: As tolerated
Activity: As tolerated
Driving Restrictions: As prior to admission
Bathing Restrictions: None
Other Services: VN
Referrals:
UNKNOWN - PT DOES,NOT KNOW [Family Provider]
Referral Note: Please see your primary care doctor within the next week.
Additional Discharge Medication Instructions: Please take Colace daily while you are taking narcotics for pain to prevent constipation.
Prescriptions:
New
pantoprazole 40 mg Tablet,Delayed Release (Dr/Ec)
40 mg PO DAILY Qty: 30 0RF
Continued
alprazolam 1 MG tablet
1 mg PO TID
gabapentin 300 mg Capsule
300 mg PO DAILY
polyethylene glycol 3350 17 gram Powder In Packet
17 g PO DAILYPRN PRN (Reason: constipation) Qty: 100 0RF
sennosides-docusate sodium 8.6-50 mg Tablet
1 tab PO BIDPRN PRN (Reason: constipation) Qty: 60 0RF
oxycodone-acetaminophen 5-325 mg Tablet
1 tab PO TIDPRN PRN (Reason: pain)
Patient Comments:
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
famotidine [Pepcid] 20 mg Tablet
20 mg PO DAILY
folic acid 1 mg Tablet
1 mg PO DAILY
alprazolam [Xanax] 1 mg Tablet
1 mg PO QIDPRN PRN (Reason: anxiety)
midodrine 2.5 mg tablet
2.5 mg PO TID Qty: 90 0RF
docusate sodium [Colace] 100 mg capsule
100 mg PO DAILY Qty: 20 0RF
naloxone
PRN (Reason: Opiate overdose)
ondansetron 8 mg Tablet,Disintegrating
8 mg PO [id number] PRN (Reason: nausea) Qty: 60 0RF
Discharge Orders:
Discharge Patient (As Directed); Ordered 07/31/25
Ordered By: Eliud Unger
Discharge Date and Time
Print Language: ROMANSH
--- NOTE | 2025-07-31 11:45 | VATNOTE ---
Called to de-access SQ port. Patient states he is appealing his discharge and is refusing to have port de-accessed at this time. SEBLE Espinal made aware.
[2025-07-31 12:46] VITALS: BMI 20.6
[2025-07-31] MEDS: NSS IV (13:21)
[2025-07-31 14:40] VITALS: BP 136/82
--- NOTE | 2025-07-31 14:55 | PTCARENOTE ---
Pt considered appealing discharge. After talking with pillowcase maker pt agreed he was ready for discharge and VN arranged. Lyft called and pt wheeled to main entrance.
--- NOTE | 2025-08-02 10:38 | PN.CDI ---
CDI
- -
CDI:
Physician Documentation Request
Admit Date: 07/29/25 15:45
Dear Doctor,
Please review the following and provide your response in the progress notes.
Clinical Indicators:
Per RD assessment on 07/31, 'Patient meets ASPEN/AND criteria for Severe Protein Calorie Malnutrition as evidenced by unintentional weight loss >7.5% in 3 months, nutritional intake <75% of estimated energy needs for >/= one month, moderate SQ loss of
tricep and orbitals, moderate muscle loss of buccal and temporals'
Based on the above information and your assessment, which of the following most accurately represents the patient's nutritional status?
Severe Malnutrition
Other (please specify)Unable to determine
[place] Criteria (ACP Hospitalist 2017)
2 or more criteria must be present for either
non severe or severe malnutrition
Note that the criteria differs related to the
presence of an acute or chronic illness
Acute Illness Chronic Illness
Energy Intake Non Severe: <75% for >7 days Non Severe: <75% for >1 month
Severe: <50% for >5 days Severe: <75% for >1 month
Weight Loss Non Severe: 1-2% over 1 week Non Severe: 5% over 1 month
5% over 1 month 7.5% over 3 months
7.5% over 3 months 10% over 6 months
1 year N/A 20% over 1 year
Severe: >2% over 1 week Severe: >5% over 1 month
>5% over 1 month >7.5% over 3 months
>7.5% over 3 months >10% over 6 months
1 year N/A >20% over 1 year
Body Fat Non Severe: Mild Decrease Non Severe: Mild Loss
Severe: Moderate Decrease Severe: Severe Loss
Muscle Mass Non Severe: Mild Decrease Non Severe: Mild Loss
Severe: Moderate Decrease Severe: Severe Loss
Fluid Accumulation Non Severe: Mild Accumulation Non Severe: Mild Accumulation
Severe: Moderate to severe Severe: Moderate to severe
accumulation accumulation
Reduced Beadworker Strength Non Severe: N/A Non Severe: N/A
Severe: Measurably reduced Severe: Measurably reduced
Additional criteria that can be used to Determine if Mild or Moderate Malnutrition (Merck Manual 2018)
Mild Moderate Severe
Albumin gm/dl <3.0 gm/dl <2.5 gm/dl <2.0 gm/dl
Pre Albumin mg/dl <15 gm/dl <10 mg/dl <5.0 mg/dl
BMI <18.5 <17 <16
Use of terms such as suspected, likely, concern for, or probable (associated with a specific diagnosis that is being evaluated, monitored, or treated as if it exists) are acceptable and can be coded in the inpatient setting, when documented at the
time of discharge.
Thank you,
Sophie WATERS, RN, CCDS
CDI Specialist
[phone]
Please use your independent medical judgment in providing your response.
--- NOTE | 2025-08-02 14:49 | CM ---
referral placed to [facility] for RN eval.
== END 2025-07-31 15:02 | disposition home or self-care (01) | DRG 180 ==
LOC: 3 WEST ACU 15:45
PROVIDERS: ADMITTING PHYSICIAN Internal Medicine; ATTENDING PHYSICIAN Internal Medicine; CONSULT PHYSICIAN Internal Medicine Hematology & Oncology; EMERGENCY PHYSICIAN Emergency Medicine
DX: C34.90 Malignant neoplasm of unspecified part of unspecified bronchus or lung (principal); E43 Unspecified severe protein-calorie malnutrition; R64 Cachexia; I95.89 Other hypotension; G89.3 Neoplasm related pain (acute) (chronic); K21.9 Gastro-esophageal reflux disease without esophagitis; F41.9 Anxiety disorder, unspecified; F17.200 Nicotine dependence, unspecified, uncomplicated; K59.09 Other constipation; D63.8 Anemia in other chronic diseases classified elsewhere; D64.81 Anemia due to antineoplastic chemotherapy; D69.59 Other secondary thrombocytopenia; Z68.20 Body mass index [BMI] 20.0-20.9, adult; J44.9 Chronic obstructive pulmonary disease, unspecified; K59.03 Drug induced constipation; T40.2X5A Adverse effect of other opioids, initial encounter; T45.1X5A Adverse effect of antineoplastic and immunosuppressive drugs, initial encounter; Z79.891 Long term (current) use of opiate analgesic; Z79.899 Other long term (current) drug therapy; Z80.8 Family history of malignant neoplasm of other organs or systems; Z95.828 Presence of other vascular implants and grafts; R11.2 Nausea with vomiting, unspecified
CPT/HCPCS: 80048; 80053; 83690; 85025; 85027; 93005; 96361; 96374; 96375; 96376; 97162; 97167; 99284; 99406

== ENCOUNTER 2025-08-06 17:51 | Inpatient (IN) | payer MEDICARE, OTHER, SELFPAY ==
[2025-08-06] VITALS (11 sets, daily range): BP systolic 109–149; BP diastolic 69–119; BMI 20.4
[2025-08-06] MEDS: NSS 1000 IV ×2 (13:47→17:01)
[2025-08-06] MEDS: ZOFRAN 4 MG IV (13:48)
[2025-08-06] MEDS: DILAUDID 1 MG IV (13:48)
--- NOTE | 2025-08-06 14:07 | ED.GENMED ---
History of Present Illness
General
Chief Complaint: Abdominal Pain
Source: patient
Exam Limitations: none
Time Seen by Provider: 08/06/25 13:33
Nursing documentation reviewed up to this point in time: agreed with
History of Present Illness
History of Present Illness:
64-year-old male with extensive medical history most notable for metastatic lung cancer returns to the emergency room for severe abdominal pain with nausea and vomiting. He was just admitted to this hospital with similar symptoms treated
symptomatically and discharged 07/31. He says that after discharge he still had very poor appetite and had not been eating very much. Yesterday he started to increase his oral intake and over the past 24 hours started to develop severe nausea and
vomiting once again as well as significant upper abdominal pain. Called EMS to bring him back to the hospital for assessment. Denies fever or chills or other acute complaints.
Past History
Past History
ED Past Medical History: Cancer (Adenocarcinoma of the lung), GERD (Combs's esophagus), Psychiatric (Anxiety) and Other (Spontaneous pneumothorax; chronic pain syndrome chronically maintained on oxycodone)
ED Past Surgical History: Orthopedic
Social History
Tobacco: Smoker
Alcohol: None
Drug: None
Personal: Single
Living: alone
Employment: Disabled
Family History
Family History: Other (Father with melanoma)
Review of Systems
Review of Systems
All Other Systems: ROS reviewed and negative except as documented in HPI and ROS
Constitutional: Denies fever
Respiratory: Denies trouble breathing
Cardiac: Denies chest pain
ABD/GI: Reports abdominal pain, nausea, vomiting and constipated
: Denies flank pain
Musculoskeletal: Denies neck pain or back pain
Neurological: Denies headache
Phy Exam
Physical Exam
Physical Exam:
General: Awake, alert, actively retching into emesis bag; chronically ill-appearing
Head: Normocephalic, atraumatic
Eyes: Conjunctiva normal, sclera anicteric
Throat: Airway intact, somewhat dry mucous membranes
Neck: Trachea midline, supple without meningismus
Lungs: Clear to auscultation bilaterally, no wheezing, rales, rhonchi
Heart: Tachycardia with regular rhythm, no murmurs, gallops, or rubs; right chest wall port noted
Abd: Soft, non distended, diffusely tender to palpation but no palpable masses
Neuro: Grossly intact
Extremities: Warm and well-perfused
Scores
Heart Failure Risk
Heart Failure Risk Score: Not Applicable
Heart Score for Chest Pain Patients
STEMI patient?: Not applicable
Withdrawal Assessment of Alcohol
Withdrawal Assessment Completed?: Not applicable
Course
Orders/Labs/Results
Orders:
Orders
08/06/25 13:33
Electrocardiogram (*1) Urgent
Reason for Study: QTc Monitoring
EKG- Treatment ONCE
HYDROmorphone [Dilaudid] 1 mg IV NOW STA
Ondansetron Injectable [Zofran] 4 mg IV NOW STA
08/06/25 13:34
0.9% Sodium Chloride 1000 ml [Nss] 1,000 ml IV BOLUS
08/06/25 13:38
CT Abd/pelvis W Iv Cont Urgent
Comment:
Reason For Exam: abd pain, nausea, vomiting
08/06/25 13:40
Complete Blood Count/With Diff Urgent
Lipase Urgent
Manual Differential Urgent
08/06/25 14:07
HYDROmorphone [Dilaudid] 0.5 mg IV NOW STA
08/06/25 14:29
Basic Metabolic Panel Urgent
08/06/25 15:13
Lactate Level [Lactic Acid] Urgent
Blood Culture Q30M
YUNG Source: Blood/Venous
Specimen Description:
08/06/25 15:22
Blood Culture Q30M
YUNG Source: Blood/Venous
Specimen Description:
08/06/25 15:43
Urinalysis Reflex To Culture Urgent
Date Specimen was Collected: 08/06/25
Time Specimen was Collected: 15:00
08/06/25 16:35
HYDROmorphone [Dilaudid] 0.5 mg IV NOW STA
Piperacillin/Tazo 3.375 Gram [Zosyn] 3.375 gram in 50 ml IV NOW
08/06/25 16:36
Consult Surgery [SURGICAL CONSULT] Urgent
Consulting Provider: Ari Orozco
Was physician already notified: Yes
0.9% Sodium Chloride 1000 ml [Nss] 1,000 ml IV BOLUS
08/06/25 16:43
Alprazolam [Xanax] 1 mg PO ONCE ONE
FOLic ACID [Folvite] 1 mg PO NOW STA
Gabapentin [Neurontin] 300 mg PO NOW STA
Pantoprazole [Protonix] 40 mg PO NOW STA
Abnormal Lab Results
08/06/25 08/06/25
13:40 14:29
WBC 57.5 H* 10^3/uL
(4.8-10.8)
RBC 3.00 L 10^6/uL
(4.70-6.10)
Hgb 9.3 L g/dL
(13.0-18.0)
Hct 27.0 L %
(39.0-52.0)
RDW 16.0 H %
(11.5-14.5)
Abs Neuts (Manual) 54.0 H 10^3/uL
(1.4-6.5)
Segmented Neutrophils 93 H %
(42-75)
Lymphocytes (Manual) 2 L %
(20-51)
Chloride 110 H mmol/L
(98-107)
Carbon Dioxide 21 L mmol/L
(22-30)
Glucose 117 H mg/dl
(70-99)
08/06/25 13:40
08/06/25 14:29
Vital Signs
Initial and Last Documented VS:
Initial Vital Signs
BP Pulse Ox
149/105 100
08/06/25 13:35 08/06/25 13:35
Last Documented Vital Signs
Temp Pulse Resp BP Pulse Ox
36.3 C 68 14 118/77 97
08/06/25 13:36 08/06/25 15:45 08/06/25 15:45 08/06/25 15:00 08/06/25 15:00
MDM/Problems Addressed
Differential Diagnosis Includes:
Bowel obstruction, pancreatitis, enteritis/gastritis, biliary obstruction/cholecystitis, cancer related symptoms
MDM/Problems Addressed:
64-year-old male with metastatic lung cancer returns to the ER with severe nausea, vomiting, abdominal pain after recent admission for similar. Started after he resumed oral intake yesterday after poor p.o. intake on initial return home from recent
hospitalization. Hypertensive and tachycardic here, physical exam as above. Placed on master cook labs sent off including a CBC and a CMP, lipase. Check EKG for QTc monitoring. Will treat with pain medications and antiemetics and provide
fluids. Will check CT abdomen pelvis. Monitor closely reassess after the above.
Labs reviewed: CBC shows marked leukocytosis with WBC of 57.5�this is significantly uptrending from discharge value of 21 which itself is uptrending from prior value of 12.5. He has anemia today which is stable. Added lactate and blood cultures.
Chemistry hemolyzed awaiting results of redraw.
Chemistry reviewed and shows acceptable renal function. Lactate less than 2. CT abdomen pelvis shows mild to moderate wall thickening in the small bowel consistent with enteritis also has significant colonic stool burden, with wall thickening of
the gastric body suggesting gastritis. He has moderate periportal edema in the liver. He has moderate submucosal edema in the gallbladder wall�no gallbladder distention or clear cholecystic fluid but given his marked leukocytosis, postprandial
pains and intractable vomiting I wonder if this could be cholecystitis although certainly gastroenteritis could present similarly. Will cover with antibiotics. Discussed case with general surgery to consult. Will admit for continued management.
Discussed case with hospitalist.
Chronic conditions affecting care:
Metastatic lung cancer
Acute Exacerbation and/or Progression of Chronic Illness:
Acute hypertensive likely pain related�treat pain but hold on antihypertensives for now
*Radiology
Radiology exam reviewed: radiology read reviewed
*Pulse Oximetry
SaO2: 100
Oxygen Mode of Delivery: Room air
Patient hypoxic: no (100%)
*EKG
Interpreted by ED Provider?: Yes
Heart Rate: 88
Rate: normal
Rhythm: sinus
[place]: normal axis
Interval: normal interval and normal QT interval
QRS Pattern: normal QRS
Ischemia: no ischemia
*Critical Care Note
Total Time (30-74mins, 75-104mins- exclusive of procedures): Not Applicable
Data Reviewed
Review of Other/Old Records Reveals: Labs, Records, Radiology Studies and Discharge Summary
Source: patient, records and ambulance crew
Patient Management
Discussion with other providers: Hospitalist (Discussed with hospitalist) and Salesperson Hearing Aids (Discussed with general surgery)
Escalation/DeEscalation of care consider admission/obs:
Admission indicated
ED Attending Note
-
Portions of this chart may have been created with voice recognition software.� Occasional wrong word or��sound alike� substitutions may have occurred due to the inherent limitations of voice recognition software.
Discharge Plan
Departure
Patient Disposition: Admit
Date of Disposition: 08/06/25
Time of Disposition: 16:44
Admit to doctor: Rico
Presentation/result/management discussed w/ accepting MD/DO: Hospitalist
Discharge Problem:
Cholecystitis, Enteritis, Gastritis
Prescriptions:
No Action
gabapentin 300 mg Capsule
300 mg PO DAILY
polyethylene glycol 3350 17 gram Powder In Packet
17 g PO DAILYPRN PRN (Reason: constipation) Qty: 100 0RF
sennosides-docusate sodium 8.6-50 mg Tablet
1 tab PO BIDPRN PRN (Reason: constipation) Qty: 60 0RF
oxycodone-acetaminophen 5-325 mg Tablet
1 tab PO TIDPRN PRN (Reason: pain)
Patient Comments:
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
famotidine [Pepcid] 20 mg Tablet
20 mg PO DAILY
folic acid 1 mg Tablet
1 mg PO DAILY
alprazolam [Xanax] 1 mg Tablet
1 mg PO QIDPRN PRN (Reason: anxiety)
docusate sodium [Colace] 100 mg capsule
100 mg PO DAILY Qty: 20 0RF
naloxone
PRN (Reason: Opiate overdose)
pantoprazole 40 mg Tablet,Delayed Release (Dr/Ec)
40 mg PO DAILY Qty: 30 0RF
ondansetron 8 mg Tablet,Disintegrating
8 mg PO [id number] PRN (Reason: nausea) Qty: 60 0RF
midodrine 2.5 mg tablet
See Rx Instructions .ROUTE .COMPLEX
Rx Instructions:
Taken TID on chemo days
Referrals:
Zulma Armas CRNP [Family Provider, Family Practice]
Interventions
Interventions:
*Risk Screen - Suicide Last Done: 08/06/25 13:33
*General Assessment Last Done: 08/06/25 13:33
*Neglect/Abuse Screening Last Done: 08/06/25 13:33
CX-Kvhgoo-Hhkbngfpxr Assessment Last Done: 08/06/25 13:33
Discharge Date and Time
Print Language: TURKISH
[2025-08-06 14:17] LABS: Lipase 64 U/L (23-300)
[2025-08-06 14:25] LABS: Hematocrit 27.0 % (39.0-52.0); Hemoglobin 9.3 g/dL (13.0-18.0); Mean Corp Hgb Conc. 34.4 g/dL (33.0-37.0); Mean Corpuscular Volume 90.0 fL (80.0-94.0); Platelet Count 156 10^3/uL (130-400); Red Cell Dist. Width 16.0 % (11.5-14.5)
[2025-08-06] MEDS: DILAUDID 0.5 MG IV ×2 (14:30→16:45)
[2025-08-06 15:12] LABS: Blood Urea Nitrogen 9 mg/dl (9-20); Calcium 9.8 mg/dl (8.4-10.2); Carbon Dioxide 21 mmol/L (22-30); Chloride 110 mmol/L (98-107); Glucose 117 mg/dl (70-99); Sodium 140 mmol/L (135-145); eGFR > 60.00
[2025-08-06 15:54] LABS: Absolute Neutrophils -Man Diff 54.0 10^3/uL (1.4-6.5)
[2025-08-06 15:55] LABS: Anisocytosis 1+; Normal RBC Morphology No; Platelets Checked Yes
[2025-08-06 15:56] LABS: Total Cells Counted 100
[2025-08-06 16:46] LABS: Urine Character Clear (Clear)
[2025-08-06 16:48] LABS: Urine Squamous Cell 0-2 /LPF (Few)
[2025-08-06] MEDS: ZOSYN 50 IV ×2 (16:48→23:04)
[2025-08-06 16:49] LABS: Urine Red Blood Cell 0-2 /HPF (0-2); Urine White Cell 0-2 /HPF (0-5)
[2025-08-06] MEDS: NEURONTIN 300 MG PO (16:57)
[2025-08-06] MEDS: FOLVITE 1 MG PO (16:57)
[2025-08-06] MEDS: PROTONIX 40 MG PO (16:58)
[2025-08-06] MEDS: XANAX 1 MG PO ×2 (17:06→21:46)
[2025-08-06 17:24] LABS: Potassium 4.0 mmol/L (3.5-5.1)
--- NOTE | 2025-08-06 17:30 | HPS.HSE ---
Family Physician
-
Family Physician: GONZALO Granados
Chief Complaint
-
abdominal pain, vomiting
History of Present Illness
64-year-old male past medical history of stage IV lung cancer on Keytruda, carboplatin and Alimta , anemia/thrombocytopenia secondary to chemotherapy, anxiety, GERD, COPD, spontaneous pneumothorax, presenting for nausea and vomiting and abdominal
pain starting yesterday. He states that yesterday he had [employer] cereal with milk which did not agree with a stomach. He had abdominal pain and vomiting afterwards.
He did not have any diarrhea. His last bowel movement 3 days ago. Denies fevers or chills.
His last chemotherapy was 07/20.
He was recently admitted for similar symptoms treated symptomatically nd discharged on 07/31. After discharge she still very poor appetite and has not been eating much. Yesterday he started to increase his oral intake and he has been having severe
nausea and vomiting and upper abdominal pain. Denies fevers or chills.
Medical History
Past Medical History
Past Medical History: Reports Other (stage IV lung cancer on Keytruda, carboplatin and Alimta , anemia/thrombocytopenia secondary to chemotherapy, anxiety, GERD, COPD, spontaneous pneumothorax)
Past Surgical History: Reports None
Social History
Tobacco: Smoker
Alcohol: None
Drug: None
Family History
Family History: Not pertinent
Allergies / Home Medications
Allergies reflects when Allergies were last updated in [email or web address].
Home Medications with original date entered in [email or web address]
Allergy/Medication List:
Allergies
Allergy/AdvReac Type Severity Reaction Status Date / Time
diclofenac Allergy Nausea / Verified 08/06/25 13:32
Vomiting
NSAIDS (Non-Steroidal Allergy Nausea / Verified 08/06/25 13:32
Anti-Inflamma Vomiting
Home Medications
gabapentin 300 mg capsule 300 mg PO DAILY Pain 04/14/25
polyethylene glycol 3350 17 gram oral powder packet 17 g PO DAILYPRN PRN constipation #100 ea 04/23/25
sennosides 8.6 mg-docusate sodium 50 mg tablet 1 tab PO BIDPRN PRN constipation #60 tabs 04/23/25
alprazolam 1 mg tablet (Xanax) 1 mg PO QIDPRN PRN anxiety 04/27/25
famotidine 20 mg tablet (Pepcid) 20 mg PO DAILY Gastrointestinal Issue 04/27/25
folic acid 1 mg tablet 1 mg PO DAILY Supplement 04/27/25
oxycodone-acetaminophen 5 mg-325 mg tablet 1 tab PO TIDPRN PRN pain 04/27/25
docusate sodium 100 mg capsule (Colace) 100 mg PO DAILY #20 caps 07/24/25
naloxone PRN Opiate overdose 07/30/25
ondansetron 8 mg disintegrating tablet 8 mg PO [id number] PRN nausea #60 tabs 07/31/25
pantoprazole 40 mg tablet,delayed release 40 mg PO DAILY #30 tabs 07/31/25
midodrine 2.5 mg tablet See Rx Instructions .Route .COMPLEX 08/06/25
Review of Systems
-
Constitutional: Reports No Symptoms
EENT: Reports No Symptoms
Respiratory: Reports No Symptoms
Cardiac: Reports No Symptoms
Abdomen/GI: Reports See HPI
: Reports No Symptoms
Musculoskeletal: Reports No Symptoms
Skin: Reports No Symptoms
Neurological: Reports No Symptoms
Endocrine: Reports No Symptoms
Hematologic/Lymphatic: Reports No Symptoms
Psych: Reports No Symptoms
Physical Exam
Vital Signs
Vital Signs
Temp Pulse Resp BP Pulse Ox
97.4 F 70 12 128/97 97
08/06/25 13:36 08/06/25 16:45 08/06/25 16:45 08/06/25 17:00 08/06/25 17:00
Physical Exam
General: Well Developed, Well Nourished and No Apparent Distress
HEENT: NormoCephalic, Moist mucous membranes and Atraumatic
Respiratory: Clear
Cardiac: S1/S2 and Regular Rhythm; No Murmur or Rub
GI: Soft, Non Tender, Non Distended and Normal Bowel Sounds; No Organomegaly
Rectal: Deferred by Provider
Musculoskeletal: No Clubbing, No Cyanosis and No Edema
Skin: No Rash
Neuro: Nonfocal/grossly intact
Laboratory Results
-
08/06/25 13:40
08/06/25 17:03
Laboratory Results
Lactic Acid 1.0 mmol/L (0.7-2.0) 08/06/25 15:13
Total Bilirubin Cancelled 08/06/25 14:29
AST Cancelled 08/06/25 14:29
ALT Cancelled 08/06/25 14:29
Alkaline Phosphatase Cancelled 08/06/25 14:29
Lipase 64 U/L (23-300) 08/06/25 13:40
Data Reviewed
-
Lab Data: Labs Reviewed by me
Old Records: Reviewed
Impression/Plan
-
IMPRESSION:
PLAN:
# Acute enteritis/gastritis seems like viral gastroenteritis
-CT abdomen pelvis shows mild to moderate wall thickening throughout the ileal small bowel loops and mild fluid distention of general loops suggesting acute enteritis, large amount of fecal material in the proximal colon moderate fecal material in
the more distal colon rectum suggesting constipation, moderate wall thickening of the gastric body suggesting gastritis, mild to moderate periportal edema of the liver, moderate submucosal edema of the gallbladder wall
- N.p.o.
- IV fluids given
- Patient with substantial improvement in symptoms
- Zofran
# Mild to moderate periportal edema of the liver
- Unclear etiology
#Moderate submucosal edema of the gallbladder wall possibly acute cholecystitis
-Was present on prior imaging so less likely acute cholecysitits
-Blood cultures pending
-zosyn
-general surgery consulted recommending HIDA scan
# Opioid-induced constipation
- Continue MiraLAX, senna, docusate
- Milk of molasses enema
Stage IV lung cancer on Keytruda, carboplatin and Alimta
- Continue Percocet, gabapentin
- Takes midodrine on chemotherapy days
Anemia/thrombocytopenia secondary to chemotherapy
- Stable
Anxiety
- Continue Xanax
GERD
- Continue Pepcid, Protonix
Active smoker
Full code
DVT prophylaxis�heparin
N.p.o.
[2025-08-06] MEDS: HEPARIN SC (21:33)
[2025-08-06] MEDS: MIRALAX 17 GRAMS PO (21:46)
[2025-08-06] MEDS: DULCOLAX 10 MG RECTAL (21:46)
[2025-08-06] MEDS: ZOFRAN ODT (ORALLY DISINTEGRATING) 8 MG PO (21:55)
--- NOTE | 2025-08-06 22:30 | PTCARENOTE ---
Patient arrived to [facility] from ED on stretcher. Patient ambulated from stretcher to bed. Patient AAOx3. Patient oriented to room, vitals checked, call escamilla within reach, bed in lowest position. Patient ordered milk of molasses enema, date/time not
specified. FILLING STATION LABORER Samara King notified. See MAR. Patient had bowel movement, this RN educated patient on NPO diet and scan tomorrow am. Will continue to monitor.
[2025-08-07 04:56] LABS: Hematocrit 23.3 % (39.0-52.0); Hemoglobin 8.0 g/dL (13.0-18.0); Mean Corp Hgb Conc. 34.3 g/dL (33.0-37.0); Mean Corpuscular Volume 93.6 fL (80.0-94.0); Nucleated Red Blood Cells % 0 % (-); Platelet Count 153 10^3/uL (130-400); Red Cell Dist. Width 16.3 % (11.5-14.5)
[2025-08-07] MEDS: ZOSYN 50 IV ×4 (05:21→23:51)
[2025-08-07] MEDS: XANAX 1 MG PO ×4 (05:21→22:09)
[2025-08-07 05:26] LABS: ALT (SGPT) 21 U/L (0-50); AST (SGOT) 18 U/L (17-59); Albumin 3.5 g/dl (3.5-5.0); Alkaline Phosphatase 139 U/L (38-126); Blood Urea Nitrogen 10 mg/dl (9-20); Calcium 9.2 mg/dl (8.4-10.2); Carbon Dioxide 24 mmol/L (22-30); Chloride 111 mmol/L (98-107); Estimated Creatinine Clearance 53 ml/min; Glucose 77 mg/dl (70-99); Potassium 3.8 mmol/L (3.5-5.1); Sodium 141 mmol/L (135-145); Total Protein 5.5 g/dl (6.3-8.2); eGFR > 60.00
[2025-08-07] MEDS: HEPARIN SC (09:03)
[2025-08-07] MEDS: NEURONTIN 300 MG PO (09:04)
[2025-08-07] MEDS: PROTONIX 40 MG PO (09:05)
[2025-08-07] MEDS: FOLVITE 1 MG PO (09:05)
[2025-08-07] MEDS: PEPCID 20 MG PO (09:05)
[2025-08-07] MEDS: COLACE 100 MG PO (09:06)
--- NOTE | 2025-08-07 09:10 | VNURNOTE ---
Addendum entered by Rose Hernandez RN 08/07/25 14:59:
[facility] resumption referral placed in [facility].
Original Note:
Chart reviewed. Patient is current with [facility]. Will continue to follow hospital course and DC plans.
[2025-08-07 09:12] VITALS: BP 120/81
--- NOTE | 2025-08-07 10:17 | CON.GS ---
Consultation
-
Date/Time Consultation Requested: 08/06/2025 4 PM
Date/Time Consultation Performed: 08/07/2025 8 AM
Requesting Provider: Dr. Jansen
Performing Provider: Dr. Orozco
Reason for Consultation: 'Cholecystitis'
Medical History
-
Chief Complaint: Left upper quadrant abdominal pain
History of Present Illness:
This is a 64-year-old male with a history of stage IV lung cancer on Keytruda, GERD, COPD, who presented with left upper quadrant abdominal pain after eating. He underwent a CT scan which was notable for small bowel wall thickening concerning for
enteritis, large fecal load concerning for constipation as well as some thickening around the gastric body and some edema also noted in the gallbladder wall. General surgery was consulted for concern for cholecystitis. He denies any prior history
of postprandial pain but does have an ultrasound from 2020 that does show cholelithiasis and sludge. The patient denies Fever, Chest Pain, Shortness Of Breath, changes in urinary and bowel habits, unintentional weight loss, jaundice, icterus,
acolic stools.
Past Medical History
Past Medical History: Other (Stage IV lung cancer, GERD, anxiety, COPD)
Past Surgical History: None
Social History
Tobacco: Smoker
Alcohol: None
Drug: None
Family History
Family History: Reviewed & Not Pertinent
Allergies / Home Medications
Allergy/AdvReac Type Severity Reaction Status Date / Time
diclofenac Allergy Nausea / Verified 08/06/25 13:32
Vomiting
NSAIDS (Non-Steroidal Allergy Nausea / Verified 08/06/25 13:32
Anti-Inflamma Vomiting
�Medication �Instructions �Recorded �Confirmed �Type
gabapentin 300 mg capsule 300 mg PO DAILY Pain 04/14/25 08/06/25 History
polyethylene glycol 3350 17 gram 17 g PO DAILYPRN PRN constipation 04/23/25 08/06/25 Rx
oral powder packet #100 ea
sennosides 8.6 mg-docusate sodium 1 tab PO BIDPRN PRN constipation 04/23/25 08/06/25 Rx
50 mg tablet #60 tabs
alprazolam 1 mg tablet (Xanax) 1 mg PO QIDPRN PRN anxiety 04/27/25 08/06/25 History
famotidine 20 mg tablet (Pepcid) 20 mg PO DAILY Gastrointestinal 04/27/25 08/06/25 History
Issue
folic acid 1 mg tablet 1 mg PO DAILY Supplement 04/27/25 08/06/25 History
oxycodone-acetaminophen 5 mg-325 1 tab PO TIDPRN PRN pain 04/27/25 08/06/25 History
mg tablet
docusate sodium 100 mg capsule 100 mg PO DAILY #20 caps 07/24/25 08/06/25 Rx
(Colace)
naloxone PRN Opiate overdose 07/30/25 History
ondansetron 8 mg disintegrating 8 mg PO [id number] PRN nausea #60 tabs 07/31/25 08/06/25 Rx
tablet
pantoprazole 40 mg tablet,delayed 40 mg PO DAILY #30 tabs 07/31/25 08/06/25 Rx
release
midodrine 2.5 mg tablet See Rx Instructions .Route .COMPLEX 08/06/25 08/06/25 History
Review of Systems
-
All other systems: Negative unless noted
A 10 point review of systems was completed, and was negative except as per HPI.
Physical Exam
Vital Signs
Temp Pulse Resp BP Pulse Ox
98.3 F 68 17 120/81 97
08/07/25 09:12 08/07/25 09:12 08/07/25 09:12 08/07/25 09:12 08/07/25 09:12
08/06/25 08/07/25 08/08/25
06:59 06:59 06:59
Actual Weight 56.302 kg
Body Mass Index (BMI) 20.4
Lab Results
08/07/25 04:17
08/07/25 04:17
WBC 25.0 10^3/uL (4.8-10.8) H 08/07/25 04:17
Hgb 8.0 g/dL (13.0-18.0) L 08/07/25 04:17
Hct 23.3 % (39.0-52.0) L 08/07/25 04:17
Plt Count 153 10^3/uL (130-400) 08/07/25 04:17
Abs Immat Gran (auto) 1.1 10^3/uL (0-0.05) H 08/07/25 04:17
Neutrophils % 80.0 % (42.2-75.2) H 08/07/25 04:17
Physical Exam
General: Well Developed
HEENT: Normocephalic
Respiratory: Non Labored Respirations
GI: Soft, Non Tender and Non Distended
Psych: Calm
Data Reviewed
-
CT Scan: Image Personally Visualized and interpreted, Report Reviewed by me and Discussed with Patient
Medical Tests (Nuc Med, Echo etc): Image Personally Visualized and interpreted, Report Reviewed by me and Discussed with Patient
Labs: Labs Reviewed by me and Discussed with Patient
Total Time Spent with Patient (in minutes): 20
Assessment / Plan
-
This is a 64-year-old male who presented with left upper quadrant pain of unclear etiology. He does have a history of gallstones on prior ultrasound imaging and his CT scan does demonstrate a mildly thickened gallbladder wall however his exam is
benign and given his other CT findings this could just be reactive edema around the gallbladder.
A HIDA scan was ordered and is negative for occlusion of the cystic or common bile duct. This effectively rules out acute cholecystitis.
Okay for diet per primary, would go slow given his enteritis
General surgery will sign off for now, please call with any questions or concerns.
I spent 75 minutes in total for the care of this patient today including direct patient care and counseling, reviewing labs, imaging, coordination of care, as well as documentation.
[2025-08-07] MEDS: PERCOCET 5/325 1 TABLET PO (10:56)
[2025-08-07] MEDS: ZOFRAN ODT (ORALLY DISINTEGRATING) 8 MG PO ×2 (11:06→23:51)
[2025-08-07] MEDS: CITROMA 300 ML PO (12:10)
[2025-08-07] MEDS: DILAUDID 0.25 MG IV ×3 (12:11→22:09)
--- NOTE | 2025-08-07 12:14 | W.PN.HOSP.TC ---
Today's Communication/Plan
-
bowel regimen
advance to fulls
oob/PT eval
Assessment / Plan
Assessment / Plan
General: cachetic, No Apparent Distress
HEENT: NormoCephalic, Moist mucous membranes and Atraumatic
Respiratory: Clear, R chest wall port
Cardiac: S1/S2 and Regular Rhythm; No Murmur or Rub
GI: Soft, Non Tender, Non Distended and Normal Bowel Sounds; No Organomegaly
Rectal: Deferred by Provider
Musculoskeletal: No Clubbing, No Cyanosis and No Edema
Skin: No Rash
Neuro: Nonfocal/grossly intact
# Acute enteritis/gastritis seems like viral gastroenteritis
-CT abdomen pelvis shows mild to moderate wall thickening throughout the ileal small bowel loops and mild fluid distention of general loops suggesting acute enteritis, large amount of fecal material in the proximal colon moderate fecal material in
the more distal colon rectum suggesting constipation, moderate wall thickening of the gastric body suggesting gastritis, mild to moderate periportal edema of the liver, moderate submucosal edema of the gallbladder wall
- Advance diet to fulls.
- IV fluids given
- Patient with substantial improvement in symptoms
- Zofran
# Mild to moderate periportal edema of the liver
- Unclear etiology
#Moderate submucosal edema of the gallbladder wall
-Was present on prior imaging.
-Blood cultures pending
-general surgery consulted recommending HIDA scan and HIDA scan was found to be negative. Surgery signed off.
# Opioid-induced constipation
# Chronic opioid dependent
- Continue MiraLAX, senna, docusate standing
- Citroma x 1 dose now
Stage IV lung cancer on Keytruda, carboplatin and Alimta
- Continue Percocet, gabapentin
- Takes midodrine on chemotherapy days
- Follows with Dr. Duran
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
-Hemoglobin 8. Continue to monitor for now.
Anxiety
- Continue Xanax
GERD
- Continue Pepcid, Protonix
Active smoker
Full code
DVT prophylaxis�heparin
Anticipated Discharge: Within 24 hours
Subjective/Interval History
-
Date of Service: August 07, 2025
denies nausea or vomiting
states he is backed up
Objective Data
-
Labs:
Laboratory Results
08/07/25
04:17
WBC 25.0 H
Hgb 8.0 L
Hct 23.3 L
Plt Count 153
Sodium 141
Potassium 3.8
Chloride 111 H
Carbon Dioxide 24
BUN 10
Creatinine 1.1
Glucose 77
Calcium 9.2
Total Bilirubin 0.3
AST 18
ALT 21
Alkaline Phosphatase 139 H
Vital Signs:
Vital Signs
Temp Pulse Resp BP Pulse Ox
98.3 F 68 17 120/81 97
08/07/25 09:12 08/07/25 09:12 08/07/25 09:12 08/07/25 09:12 08/07/25 09:12
Data Reviewed
-
Total Time Spent with Patient (in minutes): 55
[2025-08-07 15:00] VITALS: BP 108/70
[2025-08-07 16:10] VITALS: BP 116/78; PULSE 72; O2SAT 98
--- NOTE | 2025-08-07 16:15 | PTOTSP ---
The patient is independent with ambulation and elevations without a device, moreso expresses concerns regarding his medical issues. No PT needs identified at this time, will sign off.
[2025-08-07 17:55] VITALS: BMI 20.4
[2025-08-07] MEDS: MIRALAX 17 GRAMS PO (20:35)
[2025-08-07] MEDS: SENOKOT-S 1 TABLET PO (20:36)
[2025-08-07] MEDS: HEPARIN 5000 UNITS SC (20:37)
[2025-08-07 23:59] VITALS: BP 104/69
[2025-08-08] MEDS: XANAX 1 MG PO ×4 (04:29→23:18)
[2025-08-08 05:23] LABS: ALT (SGPT) 20 U/L (0-50); AST (SGOT) 17 U/L (17-59); Albumin 3.4 g/dl (3.5-5.0); Alkaline Phosphatase 118 U/L (38-126); Blood Urea Nitrogen 7 mg/dl (9-20); Calcium 8.8 mg/dl (8.4-10.2); Carbon Dioxide 24 mmol/L (22-30); Chloride 110 mmol/L (98-107); Estimated Creatinine Clearance 45 ml/min; Glucose 83 mg/dl (70-99); Potassium 3.9 mmol/L (3.5-5.1); Sodium 140 mmol/L (135-145); Total Protein 5.4 g/dl (6.3-8.2); eGFR > 60.00
[2025-08-08] MEDS: ZOSYN 50 IV ×3 (05:48→16:59)
[2025-08-08 06:06] LABS: Hematocrit 24.2 % (39.0-52.0); Hemoglobin 8.0 g/dL (13.0-18.0); Mean Corp Hgb Conc. 33.1 g/dL (33.0-37.0); Mean Corpuscular Volume 93.1 fL (80.0-94.0); Nucleated Red Blood Cells % 0 % (-); Platelet Count 192 10^3/uL (130-400); Red Cell Dist. Width 16.2 % (11.5-14.5)
[2025-08-08 07:00] VITALS: BP 123/76
[2025-08-08] MEDS: PEPCID 20 MG PO (07:28)
[2025-08-08] MEDS: MIRALAX 17 GRAMS PO (07:28)
[2025-08-08] MEDS: PROTONIX 40 MG PO (07:28)
[2025-08-08] MEDS: FOLVITE 1 MG PO (07:28)
[2025-08-08] MEDS: SENOKOT-S 1 TABLET PO ×2 (07:28→19:18)
[2025-08-08] MEDS: NEURONTIN 300 MG PO (07:28)
[2025-08-08] MEDS: DILAUDID 0.25 MG IV (07:29)
[2025-08-08] MEDS: HEPARIN SC ×2 (07:42→19:19)
[2025-08-08] MEDS: DILAUDID 0.5 MG IV ×3 (10:55→23:18)
--- NOTE | 2025-08-08 11:24 | W.PN.HOSP.TC ---
Addendum entered and electronically signed by Jose Manuel Morse MD 08/08/25 13:12:
Discussed with Rakan Lang over the phone in details.
Original Note:
Today's Communication/Plan
-
monitor for diet tolerance
wbc downtrending. remains afebrile
anemia panel
start dispo planning
Assessment / Plan
Assessment / Plan
General: cachetic, No Apparent Distress
HEENT: NormoCephalic, Moist mucous membranes and Atraumatic
Respiratory: Clear, R chest wall port
Cardiac: S1/S2 and Regular Rhythm; No Murmur or Rub
GI: Soft, Non Tender, Non Distended and Normal Bowel Sounds; No Organomegaly
Rectal: Deferred by Provider
Musculoskeletal: No Clubbing, No Cyanosis and No Edema
Skin: No Rash
Neuro: Nonfocal/grossly intact
# Acute enteritis/gastritis seems like viral gastroenteritis
-CT abdomen pelvis shows mild to moderate wall thickening throughout the ileal small bowel loops and mild fluid distention of general loops suggesting acute enteritis, large amount of fecal material in the proximal colon moderate fecal material in
the more distal colon rectum suggesting constipation, moderate wall thickening of the gastric body suggesting gastritis, mild to moderate periportal edema of the liver, moderate submucosal edema of the gallbladder wall
- Advance diet to regular.
- IV fluids given
- Patient with substantial improvement in symptoms
- Zofran
# Mild to moderate periportal edema of the liver
- Unclear etiology
#Moderate submucosal edema of the gallbladder wall
-Was present on prior imaging.
-Blood cultures pending
-general surgery consulted recommending HIDA scan and HIDA scan was found to be negative. Surgery signed off.
# Opioid-induced constipation
# Chronic opioid dependent
- Continue MiraLAX, senna, docusate standing
- Citroma x 1 dose now-was at bedside-dont think he drank it.
-having bm.
Stage IV lung cancer on Keytruda, carboplatin and Alimta
- Continue Percocet, gabapentin
- Takes midodrine on chemotherapy days
- Follows with Dr. Duran
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
-Hemoglobin 8. Continue to monitor for now.
-check anemia panel.
Anxiety
- Continue Xanax
GERD
- Continue Pepcid, Protonix
Moderate protein caloric malnutrition of chronic illness due to cancer
- Nutrition following.
Full code
DVT prophylaxis�heparin
called Alfredo [phone] at patient request-no response. left for call back.
PT eval-home
Anticipated Discharge: Within 24 hours
Subjective/Interval History
-
Date of Service: August 08, 2025
having loose stools-had mild formed bm yesterday
no nausea or vomiting
glad he is on regular diet now
Objective Data
-
Labs:
Laboratory Results
08/08/25
04:34
WBC 18.5 H
Hgb 8.0 L
Hct 24.2 L
Plt Count 192 D
Sodium 140
Potassium 3.9
Chloride 110 H
Carbon Dioxide 24
BUN 7 L
Creatinine 1.3
Glucose 83
Calcium 8.8
Total Bilirubin 0.3
AST 17
ALT 20
Alkaline Phosphatase 118
Vital Signs:
Vital Signs
Temp Pulse Resp BP Pulse Ox
98.3 F 73 18 123/76 96
08/08/25 07:00 08/08/25 07:00 08/08/25 07:00 08/08/25 07:00 08/08/25 07:00
I&O
08/07/25 08/08/25 08/09/25
06:59 06:59 06:59
Intake Total 600 / 600
Balance 600 / 600
--- NOTE | 2025-08-08 11:43 | PN.CDI ---
CDI
- -
CDI:
Physician Documentation Request
Admit Date: 08/06/25 17:51
Dear Doctor Mini,
08/07 note and assessment state ' Subcutaneous loss over orbital - Moderate, Muscle loss over Clavicle - moderate, Temporal - Moderate. Significant 36lb, 29.2% weight loss x 3 months....Pt was observed with hollow orbital, temporal depression,
clavicle protrusion, Meeting severe protein calorie malnutrition of chronic illness with wt loss and NFPA. '
Based on the above information and your assessment, which of the following most accurately represents the patient's nutritional status?
Severe Malnutrition
Other (please specify)
[place] Criteria ([facility]ist 2017)
2 or more criteria must be present for either
non severe or severe malnutrition
Note that the criteria differs related to the
presence of an acute or chronic illness
Acute Illness Chronic Illness
Energy Intake Non Severe: <75% for >7 days Non Severe: <75% for >1 month
Severe: <50% for >5 days Severe: <75% for >1 month
Weight Loss Non Severe: 1-2% over 1 week Non Severe: 5% over 1 month
5% over 1 month 7.5% over 3 months
7.5% over 3 months 10% over 6 months
1 year N/A 20% over 1 year
Severe: >2% over 1 week Severe: >5% over 1 month
>5% over 1 month >7.5% over 3 months
>7.5% over 3 months >10% over 6 months
1 year N/A >20% over 1 year
Body Fat Non Severe: Mild Decrease Non Severe: Mild Loss
Severe: Moderate Decrease Severe: Severe Loss
Muscle Mass Non Severe: Mild Decrease Non Severe: Mild Loss
Severe: Moderate Decrease Severe: Severe Loss
Fluid Accumulation Non Severe: Mild Accumulation Non Severe: Mild Accumulation
Severe: Moderate to severe Severe: Moderate to severe
accumulation accumulation
Reduced Edge Burn[place] Uppers Strength Non Severe: N/A Non Severe: N/A
Severe: Measurably reduced Severe: Measurably reduced
Use of terms such as suspected, likely, concern for, or probable (associated with a specific diagnosis that is being evaluated, monitored, or treated as if it exists) are acceptable and can be coded in the inpatient setting, when documented at the
time of discharge.
Thank you,
Georgiana Roman RN, BSN
CDI Specialist
tiger text
Please use your independent medical judgment in providing your response.
--- NOTE | 2025-08-08 12:43 | CM ---
VALERIE met with Amada today to discuss discharge plans. Pt has a follow up appointment with Palliative Care on October 13 and will receive a call from Palliative Care the day prior to the appointment. He has a nurse appointment on which
will be at his residence. VALERIE provided Diana with the phone number to the Palliative Care office to confirm the appointment.
Diana is asking to see a dietitian prior to leaving today. TT to Allyssa Melton who had seen him previously.
Pt will get an UBER to drive him home today.
[2025-08-08 13:26] LABS: Iron 54 ug/dl (49-181)
[2025-08-08 13:36] LABS: Total Iron Binding Capacity 214 ug/dl (261-462)
[2025-08-08 15:00] VITALS: BP 104/65
[2025-08-08 16:02] LABS: Ferritin 358.0 ng/ml (17.9-464.0)
[2025-08-08 16:33] LABS: Folate > 20.0 ng/ml (2.76-20); Vitamin B12 > 1000 pg/ml (239-931)
[2025-08-08] MEDS: ZOFRAN ODT (ORALLY DISINTEGRATING) 8 MG PO (19:19)
[2025-08-08 23:00] VITALS: BP 117/73
[2025-08-09] MEDS: DILAUDID 0.5 MG IV ×2 (04:56→11:09)
[2025-08-09] MEDS: XANAX 1 MG PO ×2 (04:57→10:31)
[2025-08-09 05:11] LABS: Hematocrit 25.5 % (39.0-52.0); Hemoglobin 8.5 g/dL (13.0-18.0); Mean Corp Hgb Conc. 33.3 g/dL (33.0-37.0); Mean Corpuscular Volume 92.7 fL (80.0-94.0); Nucleated Red Blood Cells % 0 % (-); Platelet Count 224 10^3/uL (130-400); Red Cell Dist. Width 16.1 % (11.5-14.5)
[2025-08-09 05:37] LABS: ALT (SGPT) 17 U/L (0-50); AST (SGOT) 15 U/L (17-59); Albumin 3.4 g/dl (3.5-5.0); Alkaline Phosphatase 103 U/L (38-126); Blood Urea Nitrogen 8 mg/dl (9-20); Calcium 8.6 mg/dl (8.4-10.2); Carbon Dioxide 24 mmol/L (22-30); Chloride 110 mmol/L (98-107); Estimated Creatinine Clearance 45 ml/min; Glucose 86 mg/dl (70-99); Potassium 3.8 mmol/L (3.5-5.1); Sodium 139 mmol/L (135-145); Total Protein 5.3 g/dl (6.3-8.2); eGFR > 60.00
[2025-08-09] MEDS: ZOSYN 50 IV ×3 (05:48→11:09)
[2025-08-09 07:00] VITALS: BP 110/66
[2025-08-09] MEDS: NEURONTIN 300 MG PO (08:18)
[2025-08-09] MEDS: PROTONIX 40 MG PO (08:19)
[2025-08-09] MEDS: PEPCID 20 MG PO (08:19)
[2025-08-09] MEDS: HEPARIN SC (08:19)
[2025-08-09] MEDS: FOLVITE 1 MG PO (08:19)
[2025-08-09] MEDS: SENOKOT-S PO (08:34)
--- NOTE | 2025-08-09 11:05 | W.PN.HOSP.TC ---
Addendum entered and electronically signed by Jose Manuel Morse MD 08/09/25 11:22:
Patient with severe protein caloric malnutrition of chronic illness
Original Note:
Today's Communication/Plan
-
Bowel regimen for constipation
Continue with outpatient palliative care follow-up
Assessment / Plan
Assessment / Plan
General: cachetic, No Apparent Distress
HEENT: NormoCephalic, Moist mucous membranes and Atraumatic
Respiratory: Clear, R chest wall port
Cardiac: S1/S2 and Regular Rhythm; No Murmur or Rub
GI: Soft, Non Tender, Non Distended and Normal Bowel Sounds; No Organomegaly
Rectal: Deferred by Provider
Musculoskeletal: No Clubbing, No Cyanosis and No Edema
Skin: No Rash
Neuro: Nonfocal/grossly intact
# Acute enteritis/gastritis seems like viral gastroenteritis
-CT abdomen pelvis shows mild to moderate wall thickening throughout the ileal small bowel loops and mild fluid distention of general loops suggesting acute enteritis, large amount of fecal material in the proximal colon moderate fecal material in
the more distal colon rectum suggesting constipation, moderate wall thickening of the gastric body suggesting gastritis, mild to moderate periportal edema of the liver, moderate submucosal edema of the gallbladder wall
- Advance diet to regular.
- Status post fluids.
- Zofran
# Mild to moderate periportal edema of the liver
- No right upper quadrant pain.
#Moderate submucosal edema of the gallbladder wall
-Was present on prior imaging.
-Blood cultures continue to remain negative.
-general surgery consulted recommending HIDA scan and HIDA scan was found to be negative. Surgery signed off.
# Opioid-induced constipation
# Chronic opioid dependent
- Continue MiraLAX, senna, docusate standing. Recommended patient to be compliant with laxative as on chronic opioids. Patient verbalized understanding.
- Citroma x 1 dose patient refused to drink it.
- Recommend to increase his daily fiber intake.
Stage IV lung cancer on Keytruda, carboplatin and Alimta
- Continue Percocet, gabapentin
- Takes midodrine on chemotherapy days
- Follows with Dr. Duran
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
-Hemoglobin 8.5 continue to monitor for now.
- Appropriate iron stores and B12 and folate.
Anxiety
- Continue Xanax
GERD
- Continue Pepcid, Protonix
Moderate protein caloric malnutrition of chronic illness due to cancer
- Nutrition following.
Full code
DVT prophylaxis�heparin
Discussed with Alfredo [phone] at patient request-who stated patient should go to rehab. PT and OT recommended home. Patient stated he would like to go home to.
PT eval-home
More than 30 minutes spent in discharge including
Final examination of the patient
Summarizing hospital stay
Instructions for continuing care to all relevant caregivers
Preparation of discharge records, prescriptions, and referral forms
Total time spent (in minutes): 52
Anticipated Discharge: Today
Subjective/Interval History
-
Date of Service: August 09, 2025
Patient was given booklets which mentions increasing fiber intake
Having bowel movements
Remains afebrile
States he is meeting up with [facility] case management tomorrow
Objective Data
-
Labs:
Laboratory Results
08/09/25
04:50
WBC 14.0 H
Hgb 8.5 L
Hct 25.5 L
Plt Count 224
Sodium 139
Potassium 3.8
Chloride 110 H
Carbon Dioxide 24
BUN 8 L
Creatinine 1.3
Glucose 86
Calcium 8.6
Total Bilirubin 0.2
AST 15 L
ALT 17
Alkaline Phosphatase 103
Vital Signs:
Vital Signs
Temp Pulse Resp BP Pulse Ox
97.8 F 55 16 110/66 97
08/09/25 07:00 08/09/25 07:00 08/09/25 07:00 08/09/25 07:00 08/09/25 07:00
I&O
08/08/25 08/09/25 08/10/25
06:59 06:59 06:59
Intake Total 600 / 600 960 / 960
Balance 600 / 600 960 / 960
--- NOTE | 2025-08-09 13:12 | CM ---
Reviewed the chart notes and spoke with the patient at the bedside. IMM reviewed. The patient anticipates being discharged to home today. Patient with new cell phone. CM offer to have number add to system, patient declined. CM continues to be
available to patient/family and is monitoring medical plan for needs at discharge.
Plan: Discharge to home with resumption of VN services. Patient has an appointment with Palliative Care in September.
--- NOTE | 2025-08-09 13:17 | W.DCSUMMARY ---
Discharge Summary
Discharge Data
Date of Admission: 08/06/25
Date of Discharge: 08/09/25
-
Pending Results: No
Hospital Course
64-year-old male past medical history of stage IV colon cancer, chronic opioid dependent on daily basis, anemia, GERD, COPD presenting from home with complaint of nausea vomiting abdominal pain. Patient underwent CT of the abdomen pelvis which
showed of severe constipation and enteritis. Was also some concern for gallbladder related pathology and surgery was consulted on admission. Patient underwent HIDA scan which was found to be negative acute cholecystitis and general surgery signed
off. Patient was tolerating diet without difficulty. Patient was started on aggressive bowel regimen with good results and having bowel movements. Patient was recommended to increase his fiber intake. Patient was recommended since he is taking
opioids he should be on bowel regimen to avoid further constipation. Patient was also eval by physical and Occupational Therapy and recommended for home. Visiting nurses were ordered.
Discharge Plan
-
Patient Disposition: Home with Home Care
Discharge Diagnosis/Procedures: Acute enteritis/gastritis
Opioid-induced severe constipation
Condition: Fair
Diet: Regular
Activity: As tolerated
Driving Restrictions: Not until seen by your Dr
Instructions: Constipation in adults, High-fiber diet
Referrals:
Zulma Armas CRNP [Family Provider, Family Practice] - in less than 1 week
Prescriptions:
Continued
gabapentin 300 mg Capsule
300 mg PO DAILY
polyethylene glycol 3350 17 gram Powder In Packet
17 g PO DAILYPRN PRN (Reason: constipation) Qty: 100 0RF
oxycodone-acetaminophen 5-325 mg Tablet
1 tab PO TIDPRN PRN (Reason: pain)
Patient Comments:
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
famotidine [Pepcid] 20 mg Tablet
20 mg PO DAILY
folic acid 1 mg Tablet
1 mg PO DAILY
alprazolam [Xanax] 1 mg Tablet
1 mg PO QIDPRN PRN (Reason: anxiety)
naloxone
intranasal PRN PRN (Reason: Opiate overdose)
pantoprazole 40 mg Tablet,Delayed Release (Dr/Ec)
40 mg PO DAILY Qty: 30 0RF
ondansetron 8 mg Tablet,Disintegrating
8 mg PO [id number] PRN (Reason: nausea) Qty: 60 0RF
midodrine 2.5 mg tablet
See Rx Instructions .ROUTE .COMPLEX
Rx Instructions:
Taken TID on chemo days
Changed
sennosides-docusate sodium 8.6-50 mg Tablet
1 tab PO BID Qty: 60 0RF
Discontinued
docusate sodium [Colace] 100 mg capsule
100 mg PO DAILY Qty: 20 0RF
Discharge Orders:
Discharge Patient (As Directed); Ordered 08/09/25
Ordered By: Jose Manuel Morse
Discharge Date and Time
Discharge Date/Time: 08/09/25 15:58
Print Language: [place]
[2025-08-09 13:59] VITALS: BP 118/69
--- NOTE | 2025-08-09 15:18 | PTCARENOTE ---
patient having bowel movements, PO intake improved. PRN Dilaudid effective for patient's pain control. PRN Xanax effective for anxiety. vss, discharged to home via UBER
== END 2025-08-09 15:58 | disposition home health service (06) | DRG 391 ==
LOC: 3 WEST ACU 17:51
PROVIDERS: ADMITTING PHYSICIAN Hospitalist; ATTENDING PHYSICIAN Hospitalist; CONSULT PHYSICIAN Surgery; EMERGENCY PHYSICIAN Emergency Medicine; FAMILY PHYSICIAN Nurse Practitioner Family
DX: A08.4 Viral intestinal infection, unspecified (principal); E43 Unspecified severe protein-calorie malnutrition; C34.90 Malignant neoplasm of unspecified part of unspecified bronchus or lung; K81.0 Acute cholecystitis; F11.20 Opioid dependence, uncomplicated; F17.200 Nicotine dependence, unspecified, uncomplicated; F41.9 Anxiety disorder, unspecified; G89.4 Chronic pain syndrome; K21.9 Gastro-esophageal reflux disease without esophagitis; K22.70 Barrett's esophagus without dysplasia; K52.9 Noninfective gastroenteritis and colitis, unspecified; K29.70 Gastritis, unspecified, without bleeding; J44.9 Chronic obstructive pulmonary disease, unspecified; K59.03 Drug induced constipation; T40.2X5A Adverse effect of other opioids, initial encounter; D64.81 Anemia due to antineoplastic chemotherapy; D69.59 Other secondary thrombocytopenia; T45.1X5A Adverse effect of antineoplastic and immunosuppressive drugs, initial encounter; Z60.2 Problems related to living alone; Z92.21 Personal history of antineoplastic chemotherapy; Z88.6 Allergy status to analgesic agent; Z88.8 Allergy status to other drugs, medicaments and biological substances; Z80.8 Family history of malignant neoplasm of other organs or systems; Z68.20 Body mass index [BMI] 20.0-20.9, adult; Z85.038 Personal history of other malignant neoplasm of large intestine
CPT/HCPCS: 74177; 78226; 80048; 80053; 81003; 81015; 82607; 82728; 82746; 83540; 83550; 83605; 83690; 84132; 85025; 87040; 93005; 96361; 96365; 96375; 96376; 97162; 99285; 99406; A9537; Q9967

== ENCOUNTER → 2025-08-23 11:20 | Outpatient (REF) | payer MEDICARE, OTHER, SELFPAY ==
[2025-08-23 11:57] LABS: Glucose 88 mg/dl (70-99)
== END ==
LOC: PET 11:20
PROVIDERS: ATTENDING PHYSICIAN Internal Medicine Hematology & Oncology
DX: C34.11 Malignant neoplasm of upper lobe, right bronchus or lung (principal); K81.9 Cholecystitis, unspecified
CPT/HCPCS: 36415; 82947

== ENCOUNTER → 2025-09-06 11:19 | Outpatient (REF) | payer MEDICARE, OTHER, SELFPAY ==
[2025-09-06 12:13] LABS: Hematocrit 33.8 % (39.0-52.0); Hemoglobin 11.0 g/dL (13.0-18.0); Mean Corp Hgb Conc. 32.5 g/dL (33.0-37.0); Mean Corpuscular Volume 96.3 fL (80.0-94.0); Nucleated Red Blood Cells % 0 % (-); Platelet Count 153 10^3/uL (130-400); Red Cell Dist. Width 14.9 % (11.5-14.5)
[2025-09-06 12:58] LABS: ALT (SGPT) 31 U/L (0-50); AST (SGOT) 25 U/L (17-59); Albumin 4.4 g/dl (3.5-5.0); Alkaline Phosphatase 78 U/L (38-126); Blood Urea Nitrogen 10 mg/dl (9-20); Calcium 9.5 mg/dl (8.4-10.2); Carbon Dioxide 28 mmol/L (22-30); Chloride 109 mmol/L (98-107); Glucose 77 mg/dl (70-99); Potassium 4.6 mmol/L (3.5-5.1); Sodium 142 mmol/L (135-145); Total Protein 6.8 g/dl (6.3-8.2); eGFR > 60.00
== END ==
LOC: REG 11:19
PROVIDERS: ATTENDING PHYSICIAN Internal Medicine Hematology & Oncology
DX: C34.11 Malignant neoplasm of upper lobe, right bronchus or lung (principal)
CPT/HCPCS: 36415; 80053; 85025

== ENCOUNTER → 2025-10-24 13:25 | Outpatient (REF) | payer MEDICARE, OTHER, SELFPAY ==
[2025-10-24 14:04] LABS: Hematocrit 34.0 % (39.0-52.0); Hemoglobin 11.2 g/dL (13.0-18.0); Mean Corp Hgb Conc. 32.9 g/dL (33.0-37.0); Mean Corpuscular Volume 99.7 fL (80.0-94.0); Nucleated Red Blood Cells % 0 % (-); Platelet Count 192 10^3/uL (130-400); Red Cell Dist. Width 14.6 % (11.5-14.5)
[2025-10-24 15:29] LABS: ALT (SGPT) 15 U/L (0-50); AST (SGOT) 21 U/L (17-59); Albumin 4.5 g/dl (3.5-5.0); Alkaline Phosphatase 62 U/L (38-126); Blood Urea Nitrogen 10 mg/dl (9-20); Calcium 9.6 mg/dl (8.4-10.2); Carbon Dioxide 29 mmol/L (22-30); Chloride 106 mmol/L (98-107); Glucose 81 mg/dl (70-99); Potassium 4.8 mmol/L (3.5-5.1); Sodium 139 mmol/L (135-145); Total Protein 7.0 g/dl (6.3-8.2); eGFR 51.03
== END ==
LOC: REG 13:25
PROVIDERS: ATTENDING PHYSICIAN Internal Medicine Hematology & Oncology
DX: C34.11 Malignant neoplasm of upper lobe, right bronchus or lung (principal)
CPT/HCPCS: 36415; 80053; 85025

== ENCOUNTER 2025-10-29 17:41 | Emergency (ER) | payer MEDICARE, OTHER, SELFPAY ==
[2025-10-29 17:48] VITALS: BP 150/83
[2025-10-29 19:07] VITALS: BMI 20.5
[2025-10-29 19:12] VITALS: BP 115/85
[2025-10-29 20:10] VITALS: BP 118/78
--- NOTE | 2025-10-29 21:10 | ED.GENMED ---
History of Present Illness
<Giuliano De La Torre DO - Last Filed: 10/29/25 21:10>
General
Chief Complaint: Anal/Rectal Problem
Time Seen by Provider: 10/29/25 19:16
<Claudine Vallecillo ANIMAL STICKER - Last Filed: 10/29/25 22:25>
General
Source: patient
Exam Limitations: none
Nursing documentation reviewed up to this point in time: agreed with
History of Present Illness
History of Present Illness:
Patient is emergency department with complaint of rectal pain, constipation. Symptoms started over the past 24 hours. He states he has not had a bowel movement since Thursday. Today he tried to drink mag citrate but vomited after ingesting. He
was brought to the emergency department by sister for evaluation. He has no abdominal pain or distention. Denies fever or chills.
Past History
<Giuliano De La Torre DO - Last Filed: 10/29/25 21:10>
Past History
ED Past Medical History: Cancer (Adenocarcinoma of the lung), GERD (Combs's esophagus), Psychiatric (Anxiety) and Other (Spontaneous pneumothorax; chronic pain syndrome chronically maintained on oxycodone)
ED Past Surgical History: Orthopedic
Social History
Tobacco: Smoker
Alcohol: None
Drug: None
Personal: Single
Living: alone
Employment: Disabled
Family History
Family History: Other (Father with melanoma)
Review of Systems
<Claudine Vallecillo ANIMAL STICKER - Last Filed: 10/29/25 22:25>
Review of Systems
Allergies reviewed?: Yes
All Other Systems: ROS reviewed and negative except as documented in HPI and ROS
Constitutional: Reports no symptoms
EENT: Reports no symptoms
Respiratory: Reports no symptoms
Cardiac: Reports no symptoms
ABD/GI: Reports constipated
: Reports no symptoms
Musculoskeletal: Reports no symptoms
Skin: Reports no symptoms
Neurological: Reports no symptoms
Psychiatric: Reports no symptoms
Phy Exam
<Claudine Vallecillo ANIMAL STICKER - Last Filed: 10/29/25 22:25>
General Physical Exam
General Presentation: moderate distress
General age: appears stated age
General Skin: warm and dry
General Habitus: normal
General Mental: alert
Cardiovascular Exam
Cardiovascular Exam: regular rate/rhythm
Gastrointestinal Exam
Gastrointestinal Exam: normal bowel sounds, non tender, soft, no organomegaly, no pulsatile mass and non distended
Rectal Exam: normal external exam, normal sphincter tone, hard stool and tender
Stool: brown
Musculoskeletal Exam
Musculoskeletal Exam: full ROM and neuro vasc intact
Skin Exam
Skin Exam: normal color and warm/dry
Psychiatric Exam
Psychiatric Exam: normal mood/affect
Course
<Giuliano De La Torre DO - Last Filed: 10/29/25 21:10>
Orders/Labs/Results
Orders:
Orders
10/29/25 19:29
Abdomen Xray - 1 View [CR Abdomen - 1 View] Urgent
Comment:
Reason For Exam: constipation
10/29/25 20:16
Enema- Treatment ONCE
Type: Milk of Molasses
10/29/25 21:11
HYDROmorphone [Dilaudid] 0.5 mg IV NOW STA
Ondansetron Injectable [Zofran] 4 mg IV NOW STA
10/29/25 22:15
Ondansetron Injectable [Zofran] 4 mg IV NOW STA
Vital Signs
Initial and Last Documented VS:
Initial Vital Signs
Temp Pulse Resp BP Pulse Ox
98.1 F 96 18 150/83 99
10/29/25 17:48 10/29/25 17:48 10/29/25 17:48 10/29/25 17:48 10/29/25 17:48
Last Documented Vital Signs
Temp Pulse Resp BP Pulse Ox
98.1 F 83 18 115/85 99
10/29/25 17:48 10/29/25 19:15 10/29/25 19:12 10/29/25 19:12 10/29/25 21:10
<Claudine Vallecillo NP - Last Filed: 10/29/25 22:25>
Orders/Labs/Results
Orders:
Orders
10/29/25 19:29
Abdomen Xray - 1 View [CR Abdomen - 1 View] Urgent
Comment:
Reason For Exam: constipation
10/29/25 20:16
Enema- Treatment ONCE
Type: Milk of Molasses
10/29/25 21:11
HYDROmorphone [Dilaudid] 0.5 mg IV NOW STA
Ondansetron Injectable [Zofran] 4 mg IV NOW STA
10/29/25 22:15
Ondansetron Injectable [Zofran] 4 mg IV NOW STA
Vital Signs
Initial and Last Documented VS:
Initial Vital Signs
Temp Pulse Resp BP Pulse Ox
98.1 F 96 18 150/83 99
10/29/25 17:48 10/29/25 17:48 10/29/25 17:48 10/29/25 17:48 10/29/25 17:48
Last Documented Vital Signs
Temp Pulse Resp BP Pulse Ox
98.1 F 83 18 115/85 99
10/29/25 17:48 10/29/25 19:15 10/29/25 19:12 10/29/25 19:12 10/29/25 21:10
<Giuliano De La Torre DO - Last Filed: 10/29/25 21:10>
*Pulse Oximetry
SaO2: 99
Oxygen Mode of Delivery: Room air
<Claudine Vallecillo ANIMAL STICKER - Last Filed: 10/29/25 22:25>
*Radiology
Radiology exam reviewed: radiology read reviewed
*Pulse Oximetry
Patient hypoxic: no
*Critical Care Note
Total Time (30-74mins, 75-104mins- exclusive of procedures): Not Applicable
<Claudine Vallecillo NP - Last Filed: 10/29/25 22:25>
Update Note
Update Note:
Patient to the emergency department with complaint of constipation and rectal pain. He states that his last bowel movement was 4 days ago. He has been seen in the emergency department for constipation in the past. He is currently being treated
for lung CA. he admits to daily opioid use. He states that he takes senna and Colace daily, has not had a problem with constipation since July. He had his last chemo appointment this week and states since then he has not been able to have a
bowel movement. Abdominal x-ray completed, mild to moderate amount of stool throughout. Rectal exam reveals large amount of stool in rectum. Attempted to manually disimpact but he complained of too much pain. He was given a milk of molasses
enema with some movement of the stool. After enema was able to manually disimpact the remainder of the stool in rectum. He will be discharged home tonight. He was encouraged to add MiraLAX daily if he continues with opioid use. He was also
instructed to follow-up with his PCP tomorrow. Given instructions on signs and symptoms to return to the emergency department.
ED Attending Note
<Giuliano De La Torre DO - Last Filed: 10/29/25 21:10>
ED Attending Note
Patient seen and examined by attending physician: Yes
I performed the substantive portion of visit, reviewed & personally made and approve the management plan that is documented in note by myself or AUDREY.: Yes
ED Attending Note:
Seen with ANIMAL STICKER examined independently 65 male lung cancer on chemo intermittent constipation
-
Portions of this chart may have been created with voice recognition software.� Occasional wrong word or��sound alike� substitutions may have occurred due to the inherent limitations of voice recognition software.
Discharge Plan
Departure
Patient Disposition: Home (Routine Discharge)
Date of Disposition: 10/29/25
Time of Disposition: 22:15
Patient with high blood pressure during this ER visit?: No
Condition: Good
Covid-19: Not Applicable
Discharge Problem:
Constipation
Instructions: Constipation, Adult (DC)
Prescriptions:
No Action
gabapentin 300 mg Capsule
300 mg PO DAILY
polyethylene glycol 3350 17 gram Powder In Packet
17 g PO DAILYPRN PRN (Reason: constipation) Qty: 100 0RF
oxycodone-acetaminophen 5-325 mg Tablet
1 tab PO TIDPRN PRN (Reason: pain)
Patient Comments:
despite being only perscriped bid patient been taking tid, no pdmp records to show dose increase, pdmp pick up man on 04/17/25 #60 bid max dose 2 per a 24 hours
famotidine [Pepcid] 20 mg Tablet
20 mg PO DAILY
folic acid 1 mg Tablet
1 mg PO DAILY
alprazolam [Xanax] 1 mg Tablet
1 mg PO QIDPRN PRN (Reason: anxiety)
naloxone
intranasal PRN PRN (Reason: Opiate overdose)
pantoprazole 40 mg Tablet,Delayed Release (Dr/Ec)
40 mg PO DAILY Qty: 30 0RF
ondansetron 8 mg Tablet,Disintegrating
8 mg PO [id number] PRN (Reason: nausea) Qty: 60 0RF
midodrine 2.5 mg tablet
See Rx Instructions .ROUTE .COMPLEX
Rx Instructions:
Taken TID on chemo days
sennosides-docusate sodium 8.6-50 mg Tablet
1 tab PO BID Qty: 60 0RF
Referrals:
Zulma Armas CRNP [Family Provider, Family Practice] - Tomorrow
Interventions
Interventions:
*Risk Screen - Suicide Last Done: 10/29/25 17:48
*General Assessment Last Done: 10/29/25 17:48
*Neglect/Abuse Screening Last Done: 10/29/25 17:48
*ED- Fall Risk Assessment Last Done: 10/29/25 19:07
*ED COVID-19 Vaccine History Last Done: 10/29/25 19:07
*ED Influenza Vaccine History Last Done: 10/29/25 19:07
ZX-Ztayfw-Exodtyukxt Assessment Last Done: 10/29/25 19:15
ED-Skin Assessment Last Done: 10/29/25 19:07
Discharge Date and Time
Print Language: PERSIAN
[2025-10-29] MEDS: ZOFRAN 4 MG IV ×2 (21:23→23:11)
[2025-10-29] MEDS: DILAUDID 0.5 MG IV (21:23)
== END 2025-10-29 23:17 | disposition home or self-care (01) ==
LOC: EMR 17:41
PROVIDERS: EMERGENCY PHYSICIAN Emergency Medicine; FAMILY PHYSICIAN Nurse Practitioner Family
DX: K59.00 Constipation, unspecified (principal); C34.90 Malignant neoplasm of unspecified part of unspecified bronchus or lung; F41.9 Anxiety disorder, unspecified; G89.4 Chronic pain syndrome; K21.9 Gastro-esophageal reflux disease without esophagitis; K22.70 Barrett's esophagus without dysplasia; F17.200 Nicotine dependence, unspecified, uncomplicated; Z79.891 Long term (current) use of opiate analgesic; Z80.8 Family history of malignant neoplasm of other organs or systems
CPT/HCPCS: 99284; 96374; 96375; 96376; 74018

== ENCOUNTER 2025-10-31 17:32 | Emergency (ER) | payer MEDICARE, OTHER, SELFPAY ==
[2025-10-31 17:40] VITALS: BP 110/78
[2025-10-31 18:24] LABS: ALT (SGPT) 21 U/L (0-50); AST (SGOT) 21 U/L (17-59); Albumin 4.3 g/dl (3.5-5.0); Alkaline Phosphatase 73 U/L (38-126); Blood Urea Nitrogen 20 mg/dl (9-20); Calcium 8.8 mg/dl (8.4-10.2); Carbon Dioxide 25 mmol/L (22-30); Chloride 105 mmol/L (98-107); Glucose 95 mg/dl (70-99); Lipase 65 U/L (23-300); Potassium 4.2 mmol/L (3.5-5.1); Sodium 137 mmol/L (135-145); Total Protein 6.5 g/dl (6.3-8.2); eGFR > 60.00
[2025-10-31 18:42] LABS: Hematocrit 30.1 % (39.0-52.0); Hemoglobin 10.4 g/dL (13.0-18.0); Mean Corp Hgb Conc. 34.6 g/dL (33.0-37.0); Mean Corpuscular Volume 93.8 fL (80.0-94.0); Red Cell Dist. Width 13.5 % (11.5-14.5)
[2025-10-31 18:43] LABS: Platelet Count 67 10^3/uL (130-400)
[2025-10-31 18:47] LABS: Absolute Neutrophils -Man Diff 2.5 10^3/uL (1.4-6.5); Normal RBC Morphology Yes; Platelets Checked Yes
[2025-10-31 18:48] LABS: Total Cells Counted 100
[2025-10-31 19:23] VITALS: BP 119/89
[2025-10-31 19:24] VITALS: BMI 17.6
--- NOTE | 2025-10-31 20:10 | ED.GENMED ---
History of Present Illness
General
Chief Complaint: Abdominal Symptoms
Source: patient
Exam Limitations: none
Time Seen by Provider: 10/31/25 19:56
Nursing documentation reviewed up to this point in time: agreed with
History of Present Illness
History of Present Illness:
The patient is a 65-year-old man with history of lung cancer who recently underwent chemotherapy 6 days ago. Patient reports 2 to 3 days of nausea and vomiting. Patient reports that he has been struggling with having bowel movements. He reports
that he takes oxycodone on a regular basis, each day, for pain related to his cancer, and he believes this is causing him to become constipated. When I asked him where his chronic pain is, he states in both of his legs. He reports that he is not
passing significant stool, rather he is having watery diarrhea instead. He denies blood. He reports mild diffuse abdominal pain. Patient reports generalized weakness. He denies fever. He states he lives alone. The patient reports that he
believes he his last bowel movement, which was watery, was earlier today but he does not remember. He last vomited yesterday after trying to take a bottle of mag citrate. He has not had any vomiting today.
Past History
Past History
ED Past Medical History: Cancer (Adenocarcinoma of the lung), GERD (Combs's esophagus), Psychiatric (Anxiety) and Other (Spontaneous pneumothorax; chronic pain syndrome chronically maintained on oxycodone)
ED Past Surgical History: Orthopedic
Social History
Tobacco: Smoker
Alcohol: None
Drug: None
Personal: Single
Living: alone
Employment: Disabled
Family History
Family History: Other (Father with melanoma)
Review of Systems
Review of Systems
Allergies reviewed?: Yes
All Other Systems: ROS reviewed and negative except as documented in HPI and ROS
Constitutional: Reports weight loss and fatigue
EENT: Reports no symptoms
Respiratory: Reports no symptoms
Cardiac: Reports no symptoms
ABD/GI: Reports nausea, vomiting, diarrhea, constipated and anorexia
: Reports no symptoms
Musculoskeletal: Reports muscle stiffness
Skin: Reports no symptoms
Neurological: Reports no symptoms
Endocrine: Reports no symptoms
Hematologic/Lymphatic: Reports no symptoms
Psychiatric: Reports no symptoms
Phy Exam
Physical Exam
Physical Exam:
Physical Exam
General: no apparent distress, not acutely ill. Patient appears frail and somewhat cachectic
Neck: supple. no meningeal signs. normal psoterior pharynx
Heart: s1/s2 regular rate and rhythm
Lungs: no acute respiratory distress. Speaks in full sentences comfortably
Abdomen: Soft throughout. I cannot elicit any tenderness on exam. Normal bowel sounds. On rectal exam, no impaction
Neuro: alert and oriented. no focal neurological deficits
Skin: no rash
Psychiatric: well kept. interactive and cooperative
Extremities: no edema. no calf tenderness. negative homans. good distal pulses
Course
Orders/Labs/Results
Orders:
Orders
10/31/25 17:55
Complete Blood Count/With Diff Urgent
Comprehensive Metabolic Panel Urgent
Lipase Urgent
Manual Differential Urgent
10/31/25 20:10
0.9% Sodium Chloride 1000 ml [Nss] 1,000 ml IV BOLUS
Ondansetron Injectable [Zofran] 4 mg IV NOW STA
10/31/25 20:11
HYDROmorphone [Dilaudid] 0.5 mg IV NOW STA
Obstruct Series W/PA Chest [CR Obstruct Series W/pa Chest] Urgent
Comment:
Reason For Exam: feels constipated
10/31/25 23:44
Ondansetron Injectable [Zofran] 4 mg IV NOW STA
Abnormal Lab Results
10/31/25
17:55
WBC 4.3 L 10^3/uL
(4.8-10.8)
RBC 3.21 L 10^6/uL
(4.70-6.10)
Hgb 10.4 L g/dL
(13.0-18.0)
Hct 30.1 L %
(39.0-52.0)
MCH 32.4 H pg
(27.0-31.0)
Plt Count 67 L 10^3/uL
(130-400)
MPV 11.0 H fL
(7.4-10.4)
Band Neutrophils 10 H %
(0-3)
Eosinophils (Manual) 10 H %
(0-6)
10/31/25 17:55
10/31/25 17:55
Vital Signs
Initial and Last Documented VS:
Initial Vital Signs
Temp Pulse Resp BP Pulse Ox
98.5 F 61 20 110/78 85
10/31/25 17:40 10/31/25 17:40 10/31/25 17:40 10/31/25 17:40 10/31/25 17:40
Last Documented Vital Signs
Temp Pulse Resp BP Pulse Ox
98.5 F 61 13 111/66 98
10/31/25 17:40 10/31/25 20:15 10/31/25 20:15 10/31/25 23:00 11/01/25 00:00
MDM/Problems Addressed
Differential Diagnosis Includes:
Chronic opioid-induced constipation, partial small bowel obstruction, ileus
MDM/Problems Addressed:
Patient presents with acute on chronic constipation
Chronic conditions affecting care:
Patient has COPD
Chronic conditions affecting care: COPD and Cancer
Acute Exacerbation and/or Progression of Chronic Illness:
Patient is breathing comfortably without any respiratory distress or wheezing. There is no sign of COPD exacerbation
Acute Exacerbation and/or Progression of Chronic Illness: COPD
*Radiology
Radiology exam reviewed: preliminary read by ED provider (Obstruction series reviewed by me. No sign of bowel obstruction) and radiology read reviewed
*Pulse Oximetry
SaO2: 99
Oxygen Mode of Delivery: Room air
Patient hypoxic: no
*EKG
Interpreted by ED Provider?: NA
*[employer] Instructor Interpretation
Rate: normal
Interpretation: normal
Rhythm: sinus
*Critical Care Note
Total Time (30-74mins, 75-104mins- exclusive of procedures): Not Applicable
Data Reviewed
Review of Other/Old Records Reveals: Radiology Studies (Reviewed recent PET scan report which showed spiculated lung cancer mass, however, no sign of masses in head, neck, abdomen or skeletal areas)
Source: patient
Update Note
Update Note:
Patient reports he feels much better. Patient up and walking around. Patient states his nausea is gone. Patient states he feels comfortable going home.
ED Attending Note
-
Portions of this chart may have been created with voice recognition software.� Occasional wrong word or��sound alike� substitutions may have occurred due to the inherent limitations of voice recognition software.
Discharge Plan
Departure
Patient Disposition: Home (Routine Discharge)
Date of Disposition: 10/31/25
Time of Disposition: 23:50
Patient with high blood pressure during this ER visit?: No
Condition: Good
Covid-19: Not Applicable
Discharge Problem:
Constipation, Nausea, Pancytopenia due to chemotherapy
Instructions: Constipation, Adult (DC)
Prescriptions:
No Action
gabapentin 300 mg Capsule
300 mg PO DAILY
polyethylene glycol 3350 17 gram Powder In Packet
17 g PO DAILYPRN PRN (Reason: constipation) Qty: 100 0RF
oxycodone-acetaminophen 5-325 mg Tablet
1 tab PO TIDPRN PRN (Reason: pain)
Patient Comments:
despite being only perscriped bid patient been taking tid, no pdmp records to show dose increase, pdmp mixing picker tender on 04/17/25 #60 bid max dose 2 per a 24 hours
famotidine [Pepcid] 20 mg Tablet
20 mg PO DAILY
folic acid 1 mg Tablet
1 mg PO DAILY
alprazolam [Xanax] 1 mg Tablet
1 mg PO QIDPRN PRN (Reason: anxiety)
naloxone
intranasal PRN PRN (Reason: Opiate overdose)
pantoprazole 40 mg Tablet,Delayed Release (Dr/Ec)
40 mg PO DAILY Qty: 30 0RF
ondansetron 8 mg Tablet,Disintegrating
8 mg PO [id number] PRN (Reason: nausea) Qty: 60 0RF
midodrine 2.5 mg tablet
See Rx Instructions .ROUTE .COMPLEX
Rx Instructions:
Taken TID on chemo days
sennosides-docusate sodium 8.6-50 mg Tablet
1 tab PO BID Qty: 60 0RF
Referrals:
UNKNOWN - PT DOES,NOT KNOW [Unknown Provider]
Activity Restrictions/Additional Instructions:
Return for fever, vomiting, or increased abdominal pain
Continue to take stool softeners. Do not take laxatives if you are having diarrhea
Take the Zofran every 6 hours as needed for nausea
Interventions
Interventions:
*Risk Screen - Suicide Last Done: 10/31/25 17:39
*General Assessment Last Done: 10/31/25 17:40
*Neglect/Abuse Screening Last Done: 10/31/25 17:40
*ED COVID-19 Vaccine History Last Done: 10/31/25 19:26
*ED Influenza Vaccine History Last Done: 10/31/25 19:26
[facility] Fall Risk Assessment Tool Last Done: 10/31/25 19:25
OP-Ijwhhx-Rkooqanqzs Assessment Last Done: 10/31/25 19:27
Discharge Date and Time
Print Language: YI
[2025-10-31] MEDS: NSS 1000 IV (20:30)
[2025-10-31] MEDS: ZOFRAN 4 MG IV ×2 (20:30→23:51)
[2025-10-31] MEDS: DILAUDID 0.5 MG IV (20:31)
[2025-10-31 21:00] VITALS: BP 104/70
[2025-10-31 22:00] VITALS: BP 104/66
[2025-10-31 22:46] VITALS: BP 106/70
[2025-10-31 23:00] VITALS: BP 111/66
--- NOTE | 2025-11-01 00:56 | EDRN ---
Pt brought to waiting room in wheelchair, assisted pt with setting up uber, ride 1 min away. pt has belongings, discharge papers and understands plan of care. No further questions or concerns at this time
== END 2025-11-01 00:59 | disposition home or self-care (01) ==
LOC: EMR 17:32
PROVIDERS: Emergency Medicine; EMERGENCY PHYSICIAN Emergency Medicine; FAMILY PHYSICIAN Nurse Practitioner Family
DX: K59.00 Constipation, unspecified (principal); R11.0 Nausea; D61.810 Antineoplastic chemotherapy induced pancytopenia; K21.9 Gastro-esophageal reflux disease without esophagitis; R11.2 Nausea with vomiting, unspecified; F41.9 Anxiety disorder, unspecified; F17.200 Nicotine dependence, unspecified, uncomplicated; J44.9 Chronic obstructive pulmonary disease, unspecified; Z60.2 Problems related to living alone; Z80.8 Family history of malignant neoplasm of other organs or systems; Z85.118 Personal history of other malignant neoplasm of bronchus and lung; Z87.19 Personal history of other diseases of the digestive system
CPT/HCPCS: 99283; 96374; 96375; 96376; 96361; 74022; 80053; 83690; 85025

== ENCOUNTER 2025-11-22 06:19 | Emergency (ER) | payer MEDICARE, OTHER, SELFPAY ==
[2025-11-22] VITALS (9 sets, daily range): BP systolic 111–179; BP diastolic 61–99; BMI 21.3
[2025-11-22 07:02] LABS: ALT (SGPT) 18 U/L (0-50); AST (SGOT) 25 U/L (17-59); Albumin 4.6 g/dl (3.5-5.0); Alkaline Phosphatase 100 U/L (38-126); Blood Urea Nitrogen 12 mg/dl (9-20); Calcium 9.9 mg/dl (8.4-10.2); Carbon Dioxide 26 mmol/L (22-30); Chloride 107 mmol/L (98-107); Estimated Creatinine Clearance 54 ml/min; Glucose 101 mg/dl (70-99); Lipase 161 U/L (23-300); Potassium 3.9 mmol/L (3.5-5.1); Sodium 140 mmol/L (135-145); Total Protein 7.2 g/dl (6.3-8.2); eGFR > 60.00
[2025-11-22 07:07] LABS: Hematocrit 31.4 % (39.0-52.0); Hemoglobin 10.8 g/dL (13.0-18.0); Mean Corp Hgb Conc. 34.4 g/dL (33.0-37.0); Mean Corpuscular Volume 97.5 fL (80.0-94.0); Nucleated Red Blood Cells % 0 % (-); Platelet Count 287 10^3/uL (130-400); Red Cell Dist. Width 14.6 % (11.5-14.5)
--- NOTE | 2025-11-22 07:12 | EDRN ---
Filemon ABDUL in room w/ pt at this time.
[2025-11-22] MEDS: DILAUDID 1 MG IV (07:27)
[2025-11-22] MEDS: PEPCID 20 MG IV (07:27)
[2025-11-22] MEDS: ZOFRAN 4 MG IV ×2 (07:27→10:07)
--- NOTE | 2025-11-22 07:51 | ED.GENMED ---
History of Present Illness
General
Chief Complaint: Abdominal Pain
Source: patient
Exam Limitations: none
Time Seen by Provider: 11/22/25 07:08
Nursing documentation reviewed up to this point in time: agreed with
History of Present Illness
History of Present Illness:
65-year-old male with past medical history of COPD, stage IV lung cancer presenting the emergency department today with concerns of diffuse abdominal pain nausea and vomiting. Claims that he does have some degree of chronic abdominal pain but this
feels different. Usually is constipated denies any constipation currently. Does take daily opioids and has not been able to take his dose over the past 12 hours or so. Denies significant chest pain shortness of breath.
Past History
Past History
ED Past Medical History: Cancer (Adenocarcinoma of the lung), GERD (Combs's esophagus), Psychiatric (Anxiety) and Other (Spontaneous pneumothorax; chronic pain syndrome chronically maintained on oxycodone)
ED Past Surgical History: Orthopedic
Social History
Tobacco: Smoker
Alcohol: None
Drug: None
Personal: Single
Living: alone
Employment: Disabled
Family History
Family History: Other (Father with melanoma)
Review of Systems
Review of Systems
Allergies reviewed?: Yes
All Other Systems: ROS reviewed and negative except as documented in HPI and ROS
Phy Exam
Physical Exam
Physical Exam:
GENERAL: Alert , in no apparent distress
EYE: pupils equal and reactive
NECK: Supple, no significant adenopathy.
ENT: o/p clr, mmm.
CARDIAC: Regular rate and rhythm .
LUNGS: Clear breath sounds bilaterally, no acute respiratory distress, no wheezes/rales/rhonchi
ABDOMEN: diffuse vague abd pain
NEUROLOGICAL: Alert and oriented, no focal neuro deficits
SKIN: Warm and dry, skin intact.
MUSCULOSKELETAL: No edema, well perfused.
PSYCH: Normal and appropriate interaction.
Course
Orders/Labs/Results
Orders:
Orders
11/22/25 06:35
Complete Blood Count/With Diff Urgent
Comprehensive Metabolic Panel Urgent
Lipase Urgent
Comment: ADD ON
11/22/25 06:45
Add On- LAB Urgent
Tests Added?: lipase
11/22/25 07:15
CT Abd/Pel (IV only)-DH only Urgent
Comment:
Reason For Exam: abd pain
Famotidine [Pepcid] 20 mg IV NOW STA
HYDROmorphone [Dilaudid] 1 mg IV NOW STA
Ondansetron Injectable [Zofran] 4 mg IV NOW STA
11/22/25 08:26
EKG [Electrocardiogram (*1)] Urgent
Reason for Study: Abdominal Pain
EKG- Treatment ONCE
Haloperidol Lactate [Haldol] 2 mg IV NOW STA
11/22/25 09:17
0.9% Sodium Chloride 1000 ml [Nss] 1,000 ml IV BOLUS
11/22/25 09:58
Urinalysis Reflex To Culture Urgent
Date Specimen was Collected: 11/22/25
Time Specimen was Collected: 09:55
Urine Microscopic Reflex Cult Urgent
11/22/25 10:01
HYDROmorphone [Dilaudid] 0.5 mg IV NOW STA
Ondansetron Injectable [Zofran] 4 mg IV NOW STA
Abnormal Lab Results
11/22/25 11/22/25
06:35 09:58
WBC 13.5 H 10^3/uL
(4.8-10.8)
RBC 3.22 L 10^6/uL
(4.70-6.10)
Hgb 10.8 L g/dL
(13.0-18.0)
Hct 31.4 L %
(39.0-52.0)
MCV 97.5 H fL
(80.0-94.0)
MCH 33.5 H pg
(27.0-31.0)
RDW 14.6 H %
(11.5-14.5)
Abs Immat Gran (auto) 0.1 H 10^3/uL
(0-0.05)
Absolute Neuts (auto) 10.7 H 10^3/uL
(1.4-6.5)
Absolute Monos (auto) 1.1 H 10^3/uL
(0.1-0.6)
Neutrophils % 79.0 H %
(42.2-75.2)
Lymphocytes % 10.3 L %
(20.5-51.1)
Glucose 101 H mg/dl
(70-99)
Urine Ketones 1+ A
(Negative)
Urine Bacteria (Reflex) Few A
(Negative)
Urine Albumin (Reflex) 1+ A
(Neg - Trace)
11/22/25 06:35
11/22/25 06:35
Vital Signs
Initial and Last Documented VS:
Initial Vital Signs
Pulse Resp BP
61 13 157/98
11/22/25 06:23 11/22/25 06:23 11/22/25 06:23
Last Documented Vital Signs
Temp Pulse Resp BP Pulse Ox
97.7 F 47 19 111/65 100
11/22/25 06:25 11/22/25 11:15 11/22/25 11:07 11/22/25 11:07 11/22/25 10:45
MDM/Problems Addressed
MDM/Problems Addressed:
65-year-old male presenting to the emergency department today with concerns of diffuse abdominal pain worse over the past day or so associated nausea vomiting no diarrhea no constipation. He had a CT scan was performed that showed some ongoing
chronic findings of gastritis but no evidence of emergent pathology labs without emergent findings urinalysis normal. Patient with some improvement of symptoms while here stable for discharge. Return precautions given.
*Pulse Oximetry
SaO2: 99
Oxygen Mode of Delivery: Room air
Patient hypoxic: no (100)
*Critical Care Note
Total Time (30-74mins, 75-104mins- exclusive of procedures): Not Applicable
ED Attending Note
-
Portions of this chart may have been created with voice recognition software.� Occasional wrong word or��sound alike� substitutions may have occurred due to the inherent limitations of voice recognition software.
Discharge Plan
Departure
Patient Disposition: Home (Routine Discharge)
Date of Disposition: 11/22/25
Time of Disposition: 10:40
Patient with high blood pressure during this ER visit?: No
Condition: Good
Covid-19: Not Applicable
Discharge Problem:
Abdominal pain
Instructions: Abdominal Pain
Prescriptions:
No Action
gabapentin 300 mg Capsule
300 mg PO DAILY
polyethylene glycol 3350 17 gram Powder In Packet
17 g PO DAILYPRN PRN (Reason: constipation) Qty: 100 0RF
oxycodone-acetaminophen 5-325 mg Tablet
1 tab PO TIDPRN PRN (Reason: pain)
Patient Comments:
despite being only perscriped bid patient been taking tid, no pdmp records to show dose increase, pdmp coal picker on 04/17/25 #60 bid max dose 2 per a 24 hours
famotidine [Pepcid] 20 mg Tablet
20 mg PO DAILY
folic acid 1 mg Tablet
1 mg PO DAILY
alprazolam [Xanax] 1 mg Tablet
1 mg PO QIDPRN PRN (Reason: anxiety)
naloxone
intranasal PRN PRN (Reason: Opiate overdose)
pantoprazole 40 mg Tablet,Delayed Release (Dr/Ec)
40 mg PO DAILY Qty: 30 0RF
ondansetron 8 mg Tablet,Disintegrating
8 mg PO [id number] PRN (Reason: nausea) Qty: 60 0RF
midodrine 2.5 mg tablet
See Rx Instructions .ROUTE .COMPLEX
Rx Instructions:
Taken TID on chemo days
sennosides-docusate sodium 8.6-50 mg Tablet
1 tab PO BID Qty: 60 0RF
Referrals:
Zulma Armas CRNP [Family Provider, Family Practice]
Activity Restrictions/Additional Instructions:
You came to the emergency department today with concerns of abdominal pain. Here there is no evidence of any emergent pathology. Please help closely with your adapted physical education aide. Return for any worsening, new or concerning symptoms.
Interventions
Interventions:
*General Assessment Last Done: 11/22/25 06:28
*Neglect/Abuse Screening Last Done: 11/22/25 06:28
*ED COVID-19 Vaccine History Last Done: 11/22/25 06:28
*ED Influenza Vaccine History Last Done: 11/22/25 06:28
[facility] Fall Risk Assessment Tool Last Done: 11/22/25 06:36
*Risk Screen - Suicide (C-SSRS) Last Done: 11/22/25 06:28
*Nursing Disposition Last Done: 11/22/25 11:25
QK-Jwqxhd-Utvmmalucf Assessment Last Done: 11/22/25 06:30
Discharge Date and Time
Discharge Date/Time: 11/22/25 11:40
Print Language: [place]
[2025-11-22] MEDS: HALDOL 2 MG IV (08:41)
--- NOTE | 2025-11-22 09:15 | EDRN ---
Filemon Matt PA in room at this time.
--- NOTE | 2025-11-22 09:19 | EDRN ---
Pt was asleep and after Filemon ABDUL was in room pt started moaning though not as loudly again. Pt asked for pee sample at this time.
[2025-11-22] MEDS: NSS 1000 IV (09:57)
--- NOTE | 2025-11-22 10:00 | EDRN ---
Pt stated to this RN pain is no better and nausea did not change post zofran but pt is not retching and moaning loudly at this time.
[2025-11-22] MEDS: DILAUDID 0.5 MG IV (10:07)
[2025-11-22 10:20] LABS: Urine Character Clear (Clear)
[2025-11-22 10:41] LABS: Urine Red Blood Cell None Seen /HPF (0-2); Urine Squamous Cell 0-2 /LPF (Few); Urine White Cell 0-2 /HPF (0-5)
--- NOTE | 2025-11-22 11:25 | EDRN ---
Pt assisted by volunteer to call an Uber and discharge now. Pain a 5/10 and nausea much educed per pt.
== END 2025-11-22 11:40 | disposition home or self-care (01) ==
LOC: EMR 06:19
PROVIDERS: Physician Assistant; EMERGENCY PHYSICIAN Student in an Organized Health Care Education/Training Program; FAMILY PHYSICIAN Nurse Practitioner Family
DX: R10.84 Generalized abdominal pain (principal); R11.2 Nausea with vomiting, unspecified; F17.200 Nicotine dependence, unspecified, uncomplicated; Z85.118 Personal history of other malignant neoplasm of bronchus and lung
CPT/HCPCS: 99285; 96374; 96375 ×3; 96376 ×2; 96361; 74177; 80053; 81003; 81015; 83690; 85025; 93005; Q9967